=== PATIENT | female | born 1940 | race Caucasian/White ===

== ENCOUNTER → 2017-03-10 | Outpatient (CLI) | payer OTHER ==
[~2017-03-10] MED LIST: ALBUAER INH; ALL180 PO; CLTP PO; RANI150T3 PO; RMR15 PO
[2017-03-10 17:07] LABS: BASO % 0.3 %; BASO ABS # 0.02 K/uL (0-0.2); COMPLETE YES; EOS % 1.7 %; HEMATOCRIT 39.4 % (37-47); IG% 0.3 %; LYMPH % 14.2 %; LYMPH ABS # 1.09 K/uL (1.2-3.4); MEAN CELL VOLUME 85.3 fL (80-100); MEAN CORPUSCULAR HEMOGLOBIN 27.9 pg (25-34); MEAN CORPUSCULAR HGB CONC 32.7 g/dl (32-36); MEAN PLATELET VOLUME 9.7 fL (7.4-10.4); MONO % 11.2 %; NEUT % 72.3 %; PLATELET COUNT 353 K/uL (130-400); RED BLOOD COUNT 4.62 M/uL (4.2-5.4); WHITE BLOOD COUNT 7.65 K/uL (4.8-10.8)
[2017-03-10 17:23] LABS: BLOOD UREA NITROGEN 11 mg/dl (7-18); BUN/CREATININE RATIO 19.3 (10-20); CALCIUM 9.3 mg/dl (8.5-10.1); CARBON DIOXIDE 30 mmol/L (21-32); CHLORIDE 97 mmol/L (98-107); CREATININE 0.55 mg/dl (0.60-1.20); GLUCOSE 102 mg/dl (70-99); POTASSIUM 3.8 mmol/L (3.5-5.1); SODIUM 134 mmol/L (136-145)
== END | disposition home or self-care (01) ==
LOC: C.LAB 16:03
PROVIDERS: ATTEND Family Medicine
DX: J18.9 Pneumonia, unspecified organism (principal)

== ENCOUNTER 2017-03-31 19:27 | Inpatient (IN) | payer OTHER ==
[~2017-03-31] VITALS: Ht 167.6 cm; Wt 44.4 kg
[2017-03-31] MEDS ORDERED: ALBUT/IPRATROP 3MG/0.5MG NEB 3 ML VIAL INH STA (19:41)
[2017-03-31] MEDS ORDERED: CEFEPIME IV 1,000 MG in DEXTROSE 5% 100ML 100 ML IV STA (19:43)
--- NOTE | 2017-03-31 19:48 | EMERGENCY ROOM VISIT NOTE ---
History Report prepared by Scribe: Lara Frias Under the Supervision of: Dr. Chapincito Lopez D.O. First contact with patient: 19:38 Chief Complaint: RESPIRATORY PROBLEMS Stated Complaint: CHOKING, COUGH W/ PHLEGM-SCHEDULED TO SEE NUBIA History of Present Illness The patient is a 77 year old female who presents to the Emergency Room with complaints of worsening respiratory problems that started prior to arrival. Her grand daughter reports she has had a cough for "months", but choked on a piece of food at dinner this evening, and her cough worsened. Her cough is productive with greenish brown colored mucous, but the patient has difficulty clearing the sputum as her one lung is misshapen due to a history of scoliosis and CVA, per her grand daughter. The patient was recently diagnosed with pneumonia and is scheduled to see Dr. Sosa of Pulmonology later in the month. Her granddaughter states she has finished a 15 day course of antibiotics for the pneumonia. The patient admits to recent rhinorrhea and states she is a former smoker. She denies any recent chest pain or abdominal pain. Source of History: patient, family (grand daughter) Onset: FLEXIBLE NANNY Position: chest Timing: other (persistent) Associated Symptoms: + cough, No chest pain, No abdominal pain Review of Systems See HPI for pertinent positives & negatives. A total of 10 systems reviewed and were otherwise negative. Past Medical & Surgical Medical Problems: (1) Failure of outpatient treatment (2) History of Clostridium difficile infection (3) History of stroke (4) NSTEMI (non-ST elevated myocardial infarction) (5) Pneumonia (6) Scoliosis Social History Smoking Status: Never Smoker Alcohol Use: none Drug Use: none Marital Status: Housing Status: lives with family Occupation Status: retired Current/Historical Medications Scheduled Ascorbic Acid (Vitamin C), 500 MG PO DAILY Calcium/Vitamin D (Caltrate 600 Plus *), 600 MG PO BID Fexofenadine Hcl (Rosalba *), 180 MG PO DAILY PRN Allergies Coded Allergies: Penicillins (Verified Allergy, Mild, 03/31/17) Sulfa Antibiotics (Verified Allergy, Unknown, ?, 04/01/17) Quinolones (Verified Adverse Reaction, Mild, 03/31/17) Physical Exam Vital Signs Date Time Temp Pulse Resp B/P (MAP) Pulse Ox O2 Delivery O2 Flow Rate FiO2 03/31/17 21:29 106 22 121/62 98 Nasal Cannula 4.0 03/31/17 20:55 117 03/31/17 20:41 89 27 89/69 99 Ambu-Bag 4.0 03/31/17 20:13 91 Ambu-Bag 2.0 03/31/17 20:01 91 Nasal Cannula 2.0 03/31/17 19:30 37.2 129 20 100/54 83 Room Air Physical Exam GENERAL: Patient is awake, alert, somewhat anxious and appears to be in significant distress. EYES: The conjunctivae are clear. The pupils are round and reactive. EARS, NOSE, MOUTH AND THROAT: The nose is without any evidence of any deformity. Mucous membranes are moist tongue is midline NECK: The neck is nontender and supple. Significant JVD noted. RESPIRATORY: Lung sounds are diminished throughout with very poor air movement. Significant tachypnea with conversational dyspnea noted. CARDIOVASCULAR: Heart sounds are tachycardic but regular, no definite murmur noted to auscultation. GASTROINTESTINAL: The abdomen is soft. Bowel sounds are present in all quadrants. Abdomen is nontender MUSCULOSKELETAL/EXTREMITIES: There is no evidence of gross deformity full range of motion is noted in the hips and shoulders SKIN: There is no obvious evidence of any rash. There are no petechiae, pallor or cyanosis noted. NEUROLOGIC: Patient is awake alert and oriented x3 Medical Decision & Procedures ER Provider Diagnostic Interpretation: Radiology results as stated below per my review and radiologist interpretation: CHEST ONE VIEW PORTABLE CLINICAL HISTORY: Sepsis fever COMPARISON STUDY: 07/03/2011 FINDINGS: Emphysematous change. Chronic deformity of the thoracic region. Chronic increased density left lung base. Chronic left lower lobe atelectasis. No new or interval findings are present. IMPRESSION: 1. Chronic consolidative change left lung base with unchanging left lower lobe atelectatic atelectasis. 2. Emphysematous change. 3. No evidence for new or interval finding. The above report was generated using voice recognition software. It may contain grammatical, syntax or spelling errors. Electronically signed by: Brett Sorensen M.D. 03/31/2017 8:08 PM (CHEST FOR PE) ANGIO WITH CT DOSE: 288.58 mGy.cm HISTORY: Dyspnea TECHNIQUE: Multiaxial CT images of the chest were performed following the intravenous administration of contrast to evaluate the pulmonary arteries. Maximal intensity projection images were also obtained. A dose lowering technique was utilized adhering to the principles of ALARA. COMPARISON STUDY: 03/12/2017 FINDINGS: No evidence for aneurysm or dissection of the thoracic aorta. Pulmonary vasculature enhances appropriately. Progressive consolidative changes left base. Somewhat progressive patchy parenchymal infiltrates the mid to lower lung regions bilaterally. Moderate reactive mediastinal adenopathy similar to and are slightly increased in the prior exam. Pulmonary apices are clear. Moderate mucous plugging is noted bilaterally. IMPRESSION: 1. Study is negative for pulmonary embolus. 2. Progressive consolidative change left lower lobe. 3. Progressive and/or interval development of bibasilar and mid lung parenchymal infiltrative changes. 4. This raises the possibility of ongoing aspiration type change. 5. Mildly progressive mediastinal and hilar adenopathy. The above report was generated using voice recognition software. It may contain grammatical, syntax or spelling errors. Electronically signed by: Brett Sorensen M.D. 03/31/2017 10:00 PM Laboratory Results Test 03/31/17 20:15 03/31/17 20:31 03/31/17 20:47 Influenza Type A (RT-PCR) Neg for Influ A (NEG) Influenza Type A Antigen Neg for Influ A (NEG) Influenza Type B Antigen Neg for Influ B (NEG) Influenza Type B (RT-PCR) Neg for Influ B (NEG) Toxic Granulation OCCASIONAL Erythrocyte Sedimentation Rate > 90 mm/hr (0-21) Prothrombin Time 11.7 SECONDS (9.0-12.0) Prothromb Time International Ratio 1.1 (0.9-1.1) Venous Blood pH 7.44 (7.36-7.41) Venous Blood Partial Pressure CO2 46 mmHg (38.0-50.0) Venous Blood Partial Pressure O2 35 mmHg Venous Blood HCO3 30 mmol/L Venous Blood Oxygen Saturation 66.2 % Venous Blood Base Excess 5.3 mEq/L Phosphorus Level 2.6 mg/dl (2.5-4.9) Magnesium Level 1.8 mg/dl (1.8-2.4) Total Bilirubin 0.4 mg/dl (0.2-1) Aspartate Amino Transf (AST/SGOT) 23 U/L (15-37) Alanine Aminotransferase (ALT/SGPT) 16 U/L (12-78) Alkaline Phosphatase 85 U/L (45-117) Total Creatine Kinase 78 U/L (26-192) Creatine Kinase MB 14.3 ng/ml (0.5-3.6) Creatine Kinase MB Ratio 18.3 (0-3.0) C-Reactive Protein 13.70 mg/dl (0-0.29) Pro-B-Type Natriuretic Peptide 339 pg/ml (0-1800) Total Protein 8.4 gm/dl (6.4-8.2) Albumin 2.3 gm/dl (3.4-5.0) Globulin 6.1 gm/dl (2.5-4.0) Albumin/Globulin Ratio 0.4 (0.9-2) Lipase 79 U/L (73-393) Bedside Lactic Acid Venous 2.15 mmol/L (0.90-1.70) Laboratory results per my review. Medications Administered Medications (Trade) Dose Ordered Sig/Irene Route Start Time Stop Time Status Last Admin Dose Admin Albuterol/ Ipratropium (Duoneb) 3 ml NOW STAT INH 03/31/17 19:41 03/31/17 19:43 DC 03/31/17 21:11 3 ML Cefepime HCl 1000 mg/Syringe 11 ml @ 5.5 mls/min NOW STAT IV 03/31/17 19:52 03/31/17 19:53 DC 03/31/17 20:38 5.5 MLS/MIN Sodium Chloride 1,000 ml @ 999 mls/hr Q1H1M STAT IV 03/31/17 20:12 03/31/17 21:12 DC 03/31/17 20:39 999 MLS/HR ECG Indication: SOB/dyspnea Rate (beats per minute): 122 Rhythm: sinus tachycardia Findings: no ectopy, other (Elevation in low lateral leads consistent with ischemia) Comparison ECG Date: Changes are new when compared to EKG from 12/30/13 ED Course 1938: The patient was evaluated in room B6. A complete history and physical examination were performed. 1940: DuoNeb 3 ml INH. 1951: Cefepime HCl/1000 mg/Syringe 11 ml @ 5.5 mls/min IV. 2011: NSS 1000 ml @ 999 mls/hr IV. 2027: I reevaluated the patient. She is resting comfortably. 2150: I discussed the patients case with Dr. Andrew, [facility] Cardiology. He recommends following the patient clinically as well as serial EKGs and Troponin' s. No heart alert at this time. 2157: I discussed the patients case with Dr. [place], [facility] Hospitalist. The patient will be further evaluated. 2200: Heparin Sodium/Dextrose 1 ea IV. 2202: I reevaluated the patient. She is feeling well and resting. I discussed my recommendation she remain in the hospital for further evaluation and management and she and her granddaughter verbalized complete understanding and agreement. Medical Decision Prior records/ancillary studies reviewed. Triage Nursing notes reviewed. Additional history obtained from the family. The patient's history was concerning for respiratory difficulties. Differential diagnosis: Etiologies such as infections, reactive airway disease, pneumonia, pneumothorax , COPD, CHF, cardiac ischemia, pulmonary embolism, musculoskeletal, gastrointestinal, as well as others were entertained. The patient is a 77-year-old female who presented to the emergency department for an evaluation of difficulty breathing. The patient had ongoing difficulty breathing since beginning of the month although her granddaughter states that she's had worsening pulmonary status for quite some time. The patient had a CAT scan of the chest which showed some abnormality in the left lingular lobe. The patient was eating tonight when she started choking on some food. Afterward she had significant worsening of her respiratory status. Initially when she presented she was hypoxic as well as tachycardic. Her initial EKG showed ST segment elevation which could be consistent with an acute [place] but the patient denied having any chest pain. Given her overall condition I feel this is likely related to ischemia from her elevated heart rate as well as her hypoxia. She was treated with IV fluids IV antibiotics bronchodilator therapy and supplemental oxygen. Her symptoms significantly improved. She was found have an elevation in troponin. I discussed this with the on-call [facility] wicker worker. Given her age and comorbidities I do not feel that she would be a good candidate for cardiac catheterization at this point especially because her symptoms continued to improve. She was started on IV heparin. I discussed her case with the on-call [facility] hospitalist group. I discussed patient's laboratory radiographic studies with her. She is aware of her condition as well as the findings with her heart. Medication Reconcilliation Current Medication List: was personally reviewed by me Blood Pressure Screening Patient's blood pressure: Low blood pressure Consults Time Called: 2149 Consulting Physician: Dr. CLARA [facility] Returned Call: 2150 I discussed the [facility] He recommends following the patient clinically as well as serial EKGs and Troponin's. No heart alert at this time. Additional Consults: Time Called: 2155 Consulted Physician: Dr. Colorado [facility] Hospitalist Returned Call: 2157 Additional Comments: I discussed the patients case with Dr. Colorado [facility] Hospitalist. The patient will be further evaluated. Impression Primary Impression: Pneumonia Additional Impressions: Hypoxia NSTEMI (non-ST elevated myocardial infarction) Critical Care I have personally spent greater than 45 minutes of critical care time in the direct management of this patient. This includes bedside care, interpretation of diagnostic studies, and testing, discussion with consultants, patient, and family members, and other required patient management activities. This 45 minutes is in excess of all separately billable procedures. Scribe Attestation The scribe's documentation has been prepared under my direction and personally reviewed by me in its entirety. I confirm that the note above accurately reflects all work, treatment, procedures, and medical decision making performed by me. Departure Information Dispostion Being Evaluated By Hospitalist Referrals Carlos Corbett M.D. (PCP) Patient Instructions My [facility] Problem Qualifiers Primary Impression: Pneumonia Pneumonia type: aspiration pneumonia Aspiration pneumonia type: unspecified Laterality: left Lung location: lower lobe of lung Qualified Codes: J69.0 - Pneumonitis due to inhalation of food and vomit
[2017-03-31] MEDS ORDERED: CEFEPIME IV 1,000 MG in SYRINGE 0 ML IV STA (19:52)
--- NOTE | 2017-03-31 20:09 | DIAGNOSTIC IMAGING REPORT ---
CHEST ONE VIEW PORTABLE CLINICAL HISTORY: Sepsis fever COMPARISON STUDY: 07/03/2011 FINDINGS: Emphysematous change. Chronic deformity of the thoracic region. Chronic increased density left lung base. Chronic left lower lobe atelectasis. No new or interval findings are present. IMPRESSION: 1. Chronic consolidative change left lung base with unchanging left lower lobe atelectatic atelectasis. 2. Emphysematous change. 3. No evidence for new or interval finding. The above report was generated using voice recognition software. It may contain grammatical, syntax or spelling errors. Electronically signed by: Brett oSrensen M.D. 03/31/2017 8:08 PM Dictated Date/Time: 03/31/2017 8:06 PM
[2017-03-31] MEDS ORDERED: SODIUM CHLORIDE 0.9% 1000ML 1,000 ML IV STA (20:12)
[2017-03-31 20:54] LABS: MEAN CELL VOLUME 82.2 fL (80-100); MEAN CORPUSCULAR HEMOGLOBIN 26.1 pg (25-34); MEAN CORPUSCULAR HGB CONC 31.7 g/dl (32-36); MEAN PLATELET VOLUME 9.6 fL (7.4-10.4); PLATELET COUNT 358 K/uL (130-400); RED BLOOD COUNT 4.26 M/uL (4.2-5.4); WHITE BLOOD COUNT 15.55 K/uL (4.8-10.8)
[2017-03-31 21:01] LABS: VEN BLD GAS O2 SATURATION 66.2 %; VEN BLOOD GAS BASE EXCESS 5.3 mEq/L
[2017-03-31 21:05] LABS: INR 1.1 (0.9-1.1); PARTIAL THROMBOPLASTIN RATIO 1.1; PROTHROMBIN TIME (PATIENT) 11.7 SECONDS (9.0-12.0)
[2017-03-31 21:15] LABS: BUN/CREATININE RATIO 23.7 (10-20); CALCIUM 8.8 mg/dl (8.5-10.1); CREATININE 0.63 mg/dl (0.60-1.20); MAGNESIUM 1.8 mg/dl (1.8-2.4); POTASSIUM 4.1 mmol/L (3.5-5.1)
[2017-03-31 21:19] LABS: BASO % 0.1 %; BASO ABS # 0.02 K/uL (0-0.2); COMPLETE YES; EOS % 0.1 %; IG% 0.4 %; LYMPH % 4.8 %; LYMPH ABS # 0.74 K/uL (1.2-3.4); MONO % 15.9 %; NEUT % 78.7 %; TOXIC GRANULATION OCCASIONAL
[2017-03-31] MEDS ORDERED: ASCA500 PO (21:24)
[2017-03-31] MEDS ORDERED: OPTIRAY 320 IV PRN (21:30)
[2017-03-31 21:45] LABS: ALB/GLOB RATIO 0.4 (0.9-2); C-REACTIVE PROTEIN 13.7 mg/dl (0-0.29); CKMB/CK RATIO 18.3 (0-3.0); PHOSPHORUS 2.6 mg/dl (2.5-4.9)
--- NOTE | 2017-03-31 22:01 | DIAGNOSTIC IMAGING REPORT ---
(CHEST FOR PE) ANGIO WITH CT DOSE: 288.58 mGy.cm HISTORY: Dyspnea TECHNIQUE: Multiaxial CT images of the chest were performed following the intravenous administration of contrast to evaluate the pulmonary arteries. Maximal intensity projection images were also obtained. A dose lowering technique was utilized adhering to the principles of ALARA. COMPARISON STUDY: 03/12/2017 FINDINGS: No evidence for aneurysm or dissection of the thoracic aorta. Pulmonary vasculature enhances appropriately. Progressive consolidative changes left base. Somewhat progressive patchy parenchymal infiltrates the mid to lower lung regions bilaterally. Moderate reactive mediastinal adenopathy similar to and are slightly increased in the prior exam. Pulmonary apices are clear. Moderate mucous plugging is noted bilaterally. IMPRESSION: 1. Study is negative for pulmonary embolus. 2. Progressive consolidative change left lower lobe. 3. Progressive and/or interval development of bibasilar and mid lung parenchymal infiltrative changes. 4. This raises the possibility of ongoing aspiration type change. 5. Mildly progressive mediastinal and hilar adenopathy. The above report was generated using voice recognition software. It may contain grammatical, syntax or spelling errors. Electronically signed by: Brett Sorensen M.D. 03/31/2017 10:00 PM Dictated Date/Time: 03/31/2017 9:56 PM
[2017-03-31 22:27] LABS: INFLUENZA A PCR Neg for Influ A (NEG); INFLUENZA B PCR Neg for Influ B (NEG)
--- NOTE | 2017-03-31 22:28 | History and Physical ---
History & Physical Date & Time of Service: Mar 31, 2017 at 22:27 Chief Complaint: Choking, Cough W/ Phlegm-Scheduled To See Sheila Primary Care Physician: Carlos Corbett M.D. History of Present Illness Source: patient Alla is a 77 yo F with a recent LLL pneumonia, hx of COPD, stroke causing L hemiparesis who presents with persistent shortness of breath. She was recently placed on a course of antibiotics as an outpatient. Earlier today she choked on a piece of food while eating and became very short of breath. Granddaughter reports she frequently gets left sided pneumonias because of scoliosis and a stroke causing L sided hemiparesis, so she cannot clear secretions well. She is booked for a bronchoscopy with Dr. Sosa within the month as well. Upon arrival in the ED, she was given a nebulizer and started on Cefepime. Her troponin was elevated and there was some mild EKG changes with ST elevation in V4-V6. Dr Curry was called and it was thought this was likely demand ischemia as she did not have any chest pain. She was started on a heparin drip. She currently feels better. She is able to speak in full sentences but gets tired easily. Past Medical/Surgical History Medical Problems: (1) Failure of outpatient treatment (2) History of Clostridium difficile infection (3) History of stroke (4) NSTEMI (non-ST elevated myocardial infarction) (5) Pneumonia (6) Scoliosis Family History No pertinent FHx Social History Smoking Status: Never Smoker Drug Use: none Marital Status: Occupational Status: retired Immunizations History of Influenza Vaccine: No History of Tetanus Vaccine?: Yes History of Pneumococcal: Yes Pneumococcal Date: Feb 20, 2006 History of Hepatitis B Vaccine: No Multi-Drug Resistant Organisms History of MDRO: No Allergies Coded Allergies: Penicillins (Verified Allergy, Mild, 03/31/17) Sulfa Drugs (Verified Allergy, Mild, 03/31/17) Quinolones (Verified Adverse Reaction, Mild, 03/31/17) Home Medications Scheduled Ascorbic Acid (Vitamin C), 500 MG PO DAILY Calcium/Vitamin D (Caltrate 600 Plus *), 600 MG PO BID Fexofenadine Hcl (Rosalba *), 180 MG PO DAILY PRN Review of Systems See HPI for pertinent positives & negatives. A total of 10 systems reviewed and were otherwise negative. Physical Exam Vital Signs Date Time Temp Pulse Resp B/P (MAP) Pulse Ox O2 Delivery O2 Flow Rate FiO2 03/31/17 21:29 106 22 121/62 98 Nasal Cannula 4.0 03/31/17 20:55 117 03/31/17 20:41 89 27 89/69 99 Ambu-Bag 4.0 03/31/17 20:13 91 Ambu-Bag 2.0 03/31/17 20:01 91 Nasal Cannula 2.0 03/31/17 19:30 37.2 129 20 100/54 83 Room Air General Appearance: WD/WN, no apparent distress, + cachetic, + thin Head: normocephalic, atraumatic Eyes: normal inspection, PERRL ENT: hearing grossly normal Neck: supple, no JVD Respiratory/Chest: + pertinent finding (unable to take deep breaths, crackles L side of chest) Cardiovascular: regular rate, rhythm, no murmur, normal peripheral pulses Abdomen/GI: non tender, soft Back: no CVA tenderness, no muscle spasm Extremities/Musculoskelatal: no calf tenderness, no pedal edema Neurologic/Psych: alert, normal mood/affect, normal reflexes, oriented x 3 Skin: no rash Diagnostics Laboratory Results Results Past 24 Hours Test 03/31/17 20:15 03/31/17 20:31 Range/Units Influenza Type A (RT-PCR) Neg for Influ A NEG Influenza Type A Antigen Neg for Influ A NEG Influenza Type B Antigen Neg for Influ B NEG Influenza Type B (RT-PCR) Neg for Influ B NEG White Blood Count 15.55 4.8-10.8 K/uL Red Blood Count 4.26 4.2-5.4 M/uL Hemoglobin 11.1 12.0-16.0 g/dL Hematocrit 35.0 37-47 % Mean Corpuscular Volume 82.2 80-100 fL Mean Corpuscular Hemoglobin 26.1 25-34 pg Mean Corpuscular Hemoglobin Concent 31.7 32-36 g/dl Platelet Count 358 130-400 K/uL Mean Platelet Volume 9.6 7.4-10.4 fL Neutrophils (%) (Auto) 78.7 % Lymphocytes (%) (Auto) 4.8 % Monocytes (%) (Auto) 15.9 % Eosinophils (%) (Auto) 0.1 % Basophils (%) (Auto) 0.1 % Neutrophils # (Auto) 12.23 1.4-6.5 K/uL Lymphocytes # (Auto) 0.74 1.2-3.4 K/uL Monocytes # (Auto) 2.48 0.11-0.59 K/uL Eosinophils # (Auto) 0.02 0-0.5 K/uL Basophils # (Auto) 0.02 0-0.2 K/uL RDW Standard Deviation 41.8 36.4-46.3 fL RDW Coefficient of Variation 13.9 11.5-14.5 % Immature Granulocyte % (Auto) 0.4 % Immature Granulocyte # (Auto) 0.06 0.00-0.02 K/uL Toxic Granulation OCCASIONAL Erythrocyte Sedimentation Rate > 90 0-21 mm/hr Prothrombin Time 11.7 9.0-12.0 SECONDS Prothromb Time International Ratio 1.1 0.9-1.1 Activated Partial Thromboplast Time 28.0 21.0-31.0 SECONDS Partial Thromboplastin Ratio 1.1 Venous Blood pH 7.44 7.36-7.41 Venous Blood Partial Pressure CO2 46 38.0-50.0 mmHg Venous Blood Partial Pressure O2 35 mmHg Venous Blood HCO3 30 mmol/L Venous Blood Oxygen Saturation 66.2 % Venous Blood Base Excess 5.3 mEq/L Sodium Level 132 136-145 mmol/L Potassium Level 4.1 3.5-5.1 mmol/L Chloride Level 95 98-107 mmol/L Carbon Dioxide Level 28 21-32 mmol/L Anion Gap 9.0 3-11 mmol/L Blood Urea Nitrogen 15 7-18 mg/dl Creatinine 0.63 0.60-1.20 mg/dl Est Creatinine Clear Calc Drug Dose 51.4 ml/min Estimated GFR () 100.3 Estimated GFR (Non- 86.5 BUN/Creatinine Ratio 23.7 10-20 Random Glucose 167 70-99 mg/dl Calcium Level 8.8 8.5-10.1 mg/dl Phosphorus Level 2.6 2.5-4.9 mg/dl Magnesium Level 1.8 1.8-2.4 mg/dl Total Bilirubin 0.4 0.2-1 mg/dl Aspartate Amino Transf (AST/SGOT) 23 15-37 U/L Alanine Aminotransferase (ALT/SGPT) 16 12-78 U/L Alkaline Phosphatase 85 45-117 U/L Total Creatine Kinase 78 26-192 U/L Creatine Kinase MB 14.3 0.5-3.6 ng/ml Creatine Kinase MB Ratio 18.3 0-3.0 Troponin I 4.560 0-0.045 ng/ml C-Reactive Protein 13.70 0-0.29 mg/dl Pro-B-Type Natriuretic Peptide 339 0-1800 pg/ml Total Protein 8.4 6.4-8.2 gm/dl Albumin 2.3 3.4-5.0 gm/dl Globulin 6.1 2.5-4.0 gm/dl Albumin/Globulin Ratio 0.4 0.9-2 Lipase 79 73-393 U/L Microbiology Results 03/31/17 Blood Culture, Received Pending 03/31/17 Blood Culture, Received Pending 03/31/17 Gram Stain - Final, Resulted 03/31/17 Sputum Culture, Resulted Pending Diagnostic Radiology CTA IMPRESSION: 1. Study is negative for pulmonary embolus. 2. Progressive consolidative change left lower lobe. 3. Progressive and/or interval development of bibasilar and mid lung parenchymal infiltrative changes. 4. This raises the possibility of ongoing aspiration type change. 5. Mildly progressive mediastinal and hilar adenopathy. CXR IMPRESSION: 1. Chronic consolidative change left lung base with unchanging left lower lobe atelectatic atelectasis. 2. Emphysematous change. 3. No evidence for new or interval finding. Impression Assessment and Plan 77 yo F with likely chronic aspiration, likely from previous stroke and scoliosis, with persistent LLL consolidation, which is pneumonia vs neoplasm ( as noted on CT 2 weeks ago). Aspiration pneumonia - Continue cefepime - Speech eval - NPO except ice chips meds - Pulm consult for potential bronchoscopy NSTEMI - Heparin drip - Cards consult - Trend troponin - Please call if pt develops any symptoms - Echo in AM Code status: Pt confirms she is a full code. If incapacitated, her POA is her son Pravin who is a bankruptcy judge in [place]. Dispo: Admit to tele VTE: Heparin drip Resident Physician Supervision Note: Pt seen/examined independently. I discussed the case with the resident and agree with the findings and plan as documented in the note. Any exceptions or clarifications are listed here: 77 y/o F Hx of R CVA and L hemiparesis leading to aspiration susceptibility - recently treated for PNM in outpt setting - presenting after probable aspiration - initial labs revealed marked troponin elevation. There are some associated EKG chnages although she has not had related cardiac symptoms. OE AAO x 3 S1,2 R Poor effort - reduced air at L base - no clear wheezing/crackles NT, NDChronic L weakness No CCE P: Cardiology was contacted - pt placed on a Heparin drip and will be evaluated AM - echo requested to assess for WMA We will treat with Cefepime for presumed aspiration PO - multiple abx allergies present - consider add of Vanc/Zithro if additional clinical deterioration occurs - pulm is consulted as she was scheduled for elective bronch Documented By: Peter [place] VTE Prophylaxis VTE Risk Assessment Done? Y/N: Yes Risk Level: Moderate Resident Tracking Resident Involvement: Resident Care Provided Care Provided: Adult Hospital Medicine
[2017-03-31] MEDS ORDERED: MAGNESIUM HYDROXIDE SUSP 30 ML UDC PO PRN (22:30)
[2017-03-31] MEDS ORDERED: ONDANSETRON INJ 2 MG/ML 2 ML VIAL IV PRN (22:30)
[2017-03-31] MEDS ORDERED: ALUMINUM/MAGNESIUM/SIMETH (MAALOX MAX) 30 ML UDC PO PRN (22:30)
[2017-03-31] MEDS ORDERED: ACETAMINOPHEN 325 MG TAB PO PRN (22:30)
[2017-03-31] MEDS ORDERED: HEPARIN 25000 UNIT/500 ML D5W ONE (23:03)
[2017-03-31 23:48] VITALS: BP 107/69; PULSE 101; TEMP 37.4; O2SAT 99; Ht 167.6 cm; Wt 44.4 kg
[2017-04-01] VITALS (11 sets, daily range): BP systolic 89–104; BP diastolic 54–68; PULSE 74–99; TEMP 36.5–37.5; O2SAT 95–99
[2017-04-01] MEDS ORDERED: INFLUENZA VACCINE HIGH DOSE 65+ 0.5 ML SYR IM. ONE (01:00)
[2017-04-01] MEDS ORDERED: PNEUMOCOCCAL POLYSACCHARIDES 25 MCG/0.5 ML VIAL/SYR IM. ONE (01:00)
[2017-04-01] MEDS ORDERED: INFLUENZA ADMINISTRATION CHARGE ONE (01:00)
[2017-04-01] MEDS ORDERED: PNEUMOCOCCAL ADMINISTRATION CHARGE ONE (01:00)
[2017-04-01] MEDS: CEFEPIME IV 1,000 MG in SYRINGE 0 ML IV SCH ×3 (04:57→19:58)
[2017-04-01 06:18] LABS: PARTIAL THROMBOPLASTIN RATIO 1.4
[2017-04-01] MEDS ORDERED: HEPARIN IV BOLUS 3,000 UNIT in SYRINGE 0 ML IV ONE (06:45)
[2017-04-01] MEDS ORDERED: PERFLUTREN LIPID MICROSPHERE (DEFINITY) IV ONE (06:57)
[2017-04-01] MEDS: HEPARIN 25,000 UNIT/500ML D5W 500 ML IV PRN (07:06)
--- NOTE | 2017-04-01 07:45 | Family Medicine Progress Note ---
Progress Note Date of Service Apr 01, 2017. Subjective Pt evaluation today including: conversation w/ patient, conversation w/ family , physical exam, chart review, lab review, review of inpatient medication list Pain: No pain reported PO Intake: Tolerating PO intake Voiding: no voiding problems Ms. Lui states she feels her breathing has improved since yesterday. She denies chest pain, fever, chills, abdominal pain, n/v and states her bowel movements have been normal. She states she has a cough which she feels is productive but she has difficulty expectorating the sputum. With regards to the history of her pneumonia - she was diagnosed by her PCP a month ago and was treated with 15 days of antibiotics, however she does not remember the name of this antibiotic. She states her breathing never fully returned to baseline even after abx treatment and worsened yesterday after she was eating and aspirated some of her food. Constitutional: + weakness, No fever, No chills, No sweats Respiratory: + cough, + sputum, + shortness of breath, No wheezing Cardiovascular: No chest pain, No edema Abdomen: No pain, No nausea, No vomiting, No diarrhea All Other Systems: Reviewed and Negative Medications Current Inpatient Medications Medications (Trade) Dose Ordered Sig/Irene Route Start Time Stop Time Status Last Admin Dose Admin Ioversol (Optiray 320) 100 ml UD PRN IV 03/31/17 21:30 04/04/17 21:29 Acetaminophen (Tylenol Tab) 650 mg Q4H PRN PO 03/31/17 22:30 04/30/17 22:29 Al Hydrox/Mg Hydrox/Simethicone (Maalox Max Susp) 15 ml Q4H PRN PO 03/31/17 22:30 04/30/17 22:29 Magnesium Hydroxide (Milk Of Magnesia Susp) 30 ml Q12H PRN PO 03/31/17 22:30 04/30/17 22:29 Ondansetron HCl (Zofran Inj) 4 mg Q6H PRN IV 03/31/17 22:30 04/30/17 22:29 Ascorbic Acid (Vitamin C Tab) 500 mg DAILY PO 04/01/17 09:00 05/01/17 08:59 04/01/17 08:48 500 MG Calcium/Vitamin D (Caltrate Plus Tab) 1 tab BID PO 04/01/17 09:00 05/01/17 08:59 04/01/17 08:48 1 TAB Fexofenadine HCl (Rosalba Tab) 180 mg DAILY PRN PO 03/31/17 22:30 04/30/17 22:29 Cefepime HCl 1000 mg/Syringe 11 ml @ 5.5 mls/min Q8H IV 04/01/17 04:00 04/08/17 03:59 04/01/17 04:57 5.5 MLS/MIN Heparin Sodium/ Dextrose 500 ml @ 19 mls/hr Q24H PRN IV 04/01/17 00:30 05/01/17 00:29 04/01/17 07:06 19 MLS/HR Clindamycin Phosphate 600 mg/ Dextrose 54 ml @ 100 mls/hr Q8H IV 04/01/17 10:00 04/08/17 09:59 04/01/17 10:25 100 MLS/HR Atorvastatin Calcium (Lipitor Tab) 40 mg HS PO 04/01/17 21:00 05/01/17 20:59 Ipratropium [place] (Atrovent 0.02% 0.5MG/2.5ML Neb) 0.5 mg Q6R PRN INH 04/01/17 10:30 05/01/17 10:29 Levalbuterol (Xopenex 1.25MG/ 0.5ML Neb) 1.25 mg Q6R PRN INH 04/01/17 10:30 05/01/17 10:29 Objective Vital Signs Date Time Temp Pulse Resp B/P (MAP) Pulse Ox O2 Delivery O2 Flow Rate FiO2 04/01/17 11:28 36.5 78 18 97/60 (72) 97 3.0 04/01/17 08:00 98 Nasal Cannula 3.0 04/01/17 07:43 37.0 74 20 95/61 (72) 98 3.0 04/01/17 04:00 Nasal Cannula 3.0 04/01/17 03:02 37.3 96 17 104/68 (80) 95 Nasal Cannula 3.0 03/31/17 23:59 Nasal Cannula 3.0 03/31/17 23:48 37.4 101 22 107/69 99 Nasal Cannula 3.0 03/31/17 23:18 102 26 115/65 98 03/31/17 23:00 102 26 115/65 98 Nasal Cannula 3.0 03/31/17 21:29 106 22 121/62 98 Nasal Cannula 4.0 03/31/17 20:55 117 03/31/17 20:41 89 27 89/69 99 Ambu-Bag 4.0 03/31/17 20:13 91 Ambu-Bag 2.0 03/31/17 20:01 91 Nasal Cannula 2.0 03/31/17 19:30 37.2 129 20 100/54 83 Room Air Physical Exam General Appearance: WD/WN, no apparent distress, + pertinent finding (scoliosis ) Respiratory/Chest: chest non-tender, normal breath sounds, no respiratory distress, no accessory muscle use, + crackles (left base) Cardiovascular: regular rate, rhythm, no edema, no gallop, no JVD, no murmur Abdomen: normal bowel sounds, non tender, soft, no organomegaly, no pulsatile mass Laboratory Results Last 24 Hours Test 03/31/17 20:15 03/31/17 20:31 03/31/17 20:47 04/01/17 02:13 Influenza Type A (RT-PCR) Neg for Influ A Influenza Type A Antigen Neg for Influ A Influenza Type B Antigen Neg for Influ B Influenza Type B (RT-PCR) Neg for Influ B White Blood Count 15.55 K/uL Red Blood Count 4.26 M/uL Hemoglobin 11.1 g/dL Hematocrit 35.0 % Mean Corpuscular Volume 82.2 fL Mean Corpuscular Hemoglobin 26.1 pg Mean Corpuscular Hemoglobin Concent 31.7 g/dl Platelet Count 358 K/uL Mean Platelet Volume 9.6 fL Neutrophils (%) (Auto) 78.7 % Lymphocytes (%) (Auto) 4.8 % Monocytes (%) (Auto) 15.9 % Eosinophils (%) (Auto) 0.1 % Basophils (%) (Auto) 0.1 % Neutrophils # (Auto) 12.23 K/uL Lymphocytes # (Auto) 0.74 K/uL Monocytes # (Auto) 2.48 K/uL Eosinophils # (Auto) 0.02 K/uL Basophils # (Auto) 0.02 K/uL RDW Standard Deviation 41.8 fL RDW Coefficient of Variation 13.9 % Immature Granulocyte % (Auto) 0.4 % Immature Granulocyte # (Auto) 0.06 K/uL Toxic Granulation OCCASIONAL Erythrocyte Sedimentation Rate > 90 mm/hr Prothrombin Time 11.7 SECONDS Prothromb Time International Ratio 1.1 Activated Partial Thromboplast Time 28.0 SECONDS Partial Thromboplastin Ratio 1.1 Venous Blood pH 7.44 Venous Blood Partial Pressure CO2 46 mmHg Venous Blood Partial Pressure O2 35 mmHg Venous Blood HCO3 30 mmol/L Venous Blood Oxygen Saturation 66.2 % Venous Blood Base Excess 5.3 mEq/L Sodium Level 132 mmol/L Potassium Level 4.1 mmol/L Chloride Level 95 mmol/L Carbon Dioxide Level 28 mmol/L Anion Gap 9.0 mmol/L Blood Urea Nitrogen 15 mg/dl Creatinine 0.63 mg/dl Est Creatinine Clear Calc Drug Dose 51.4 ml/min Estimated GFR () 100.3 Estimated GFR (Non- 86.5 BUN/Creatinine Ratio 23.7 Random Glucose 167 mg/dl Calcium Level 8.8 mg/dl Phosphorus Level 2.6 mg/dl Magnesium Level 1.8 mg/dl Total Bilirubin 0.4 mg/dl Aspartate Amino Transf (AST/SGOT) 23 U/L Alanine Aminotransferase (ALT/SGPT) 16 U/L Alkaline Phosphatase 85 U/L Total Creatine Kinase 78 U/L Creatine Kinase MB 14.3 ng/ml Creatine Kinase MB Ratio 18.3 Troponin I 4.560 ng/ml 4.740 ng/ml C-Reactive Protein 13.70 mg/dl Pro-B-Type Natriuretic Peptide 339 pg/ml Total Protein 8.4 gm/dl Albumin 2.3 gm/dl Globulin 6.1 gm/dl Albumin/Globulin Ratio 0.4 Lipase 79 U/L Bedside Lactic Acid Venous 2.15 mmol/L Test 04/01/17 05:10 04/01/17 08:29 White Blood Count 8.16 K/uL Red Blood Count 3.85 M/uL Hemoglobin 10.0 g/dL Hematocrit 31.4 % Mean Corpuscular Volume 81.6 fL Mean Corpuscular Hemoglobin 26.0 pg Mean Corpuscular Hemoglobin Concent 31.8 g/dl Platelet Count 323 K/uL Mean Platelet Volume 10.1 fL Neutrophils (%) (Auto) 62.9 % Lymphocytes (%) (Auto) 17.5 % Monocytes (%) (Auto) 18.8 % Eosinophils (%) (Auto) 0.2 % Basophils (%) (Auto) 0.2 % Neutrophils # (Auto) 5.13 K/uL Lymphocytes # (Auto) 1.43 K/uL Monocytes # (Auto) 1.53 K/uL Eosinophils # (Auto) 0.02 K/uL Basophils # (Auto) 0.02 K/uL RDW Standard Deviation 41.7 fL RDW Coefficient of Variation 13.9 % Immature Granulocyte % (Auto) 0.4 % Immature Granulocyte # (Auto) 0.03 K/uL Activated Partial Thromboplast Time 35.2 SECONDS Partial Thromboplastin Ratio 1.4 Sodium Level 137 mmol/L Potassium Level 3.8 mmol/L Chloride Level 101 mmol/L Carbon Dioxide Level 29 mmol/L Anion Gap 7.0 mmol/L Blood Urea Nitrogen 11 mg/dl Creatinine 0.42 mg/dl Est Creatinine Clear Calc Drug Dose 74.7 ml/min Estimated GFR () 114.6 Estimated GFR (Non- 98.9 BUN/Creatinine Ratio 25.7 Random Glucose 115 mg/dl Lactic Acid Level 1.1 mmol/L Calcium Level 8.5 mg/dl Troponin I 3.610 ng/ml Assessment and Plan Ms. Lui is a 77 year old female with possible chronic aspiration, likely from previous stroke and scoliosis, with persistent LLL consolidation Septic on arrival secondary to aspiration pneumonia - hypoxemic on arrival - Continue cefepime - added in clindamycin for anaerobe coverage - thank you to pulmonary for consult: - added azithromycin for atypical coverage - ordered pro-calcitonin - bronch not warranted at this time given cardiac hx - chest PT vibration vest and mucomyst to help with expectoration - Xopenex q6hr prn for shortness of breath - continue oxygen via nasal cannula - currently on 3L - sputum gram stain revealed moderate amounts of gram positive cocci and few gram negative bacilli - awaiting culture results - awaiting blood culture results - Speech eval & video swallow test showed silent aspiration of thin and nectar thick liquids - discussed home management with granddaughter and will provide a list of recommended foods/consistencies - Tylenol prn for fever - 75mls/hr of NS as she looks dry & was tachy at ~100bpm - will monitor Prior NSTEMI, worsened by hypoxemia - thank you to Dr. Curry for input - EKG - ST elevation in leads V3-V6 - ECHO - "extensive prior LAD infarct with an ejection fraction in the range of 35%-40% with hypokinesis of the mid to distal anterior septum, mid to distal septum, mid to distal anterior wall apex and inferior apex. They appear thin and akinetic, suggesting a prior heart attack." - recommended medical therapy for secondary prevention - heparin drip for 48 hours, 81mg of aspirin daily, beta yosi if BP allows (currently running low so will hold off for now) - also added 40mg of atorvastatin - troponin trending downwards now - down to 3.6 from 4.7 Allergies - continue fexofenadine Anemia - hemoglobin 10 - seems to be around her baseline - MCV wnl, likely anemia of chronic disease Code status: Full. If incapacitated, her POA is her son Parvin who is a business management specialist in [place]. Dispo: Remains on telemetry, PT/OT evals in place VTE: Heparin drip Resident Tracking Resident Involvement: Resident Care Provided Care Provided: Adult Hospital Medicine
--- NOTE | 2017-04-01 08:32 | ECHOCARDIOGRAM REPORT ---
*NOTICE TO RECEIVING LIBERTARIAN AGENCY This information is strictly Confidential and protected under [place] law. [place] law prohibits you from making any further disclosure of this information unless further disclosure is expressly permitted by the written consent of the person to whom it pertains or is authorized by law. A general authorization for the release of medical or other information is not sufficient for this purpose. Hospital accepts no responsibility if the information is made available to any other person, INCLUDING THE PATIENT. Interpretation Summary * Name: ERICH HSU Study Date: 04/01/2017 06:26 AM BP: 95/61 mmHg * Patient Location: C.2T\S\S240\S\2 HR: 74 * : 1940 (M/d/yyyy) Gender: Female Height: 66 in * Age: 77 yrs Ethnicity: CA Weight: 93 lb * Ordering Physician: Peter [place] * Referring Physician: Self, Referred * Performed By: Sangita Akbar RDCS * * Reason For Study: MO * BSA: 1.4 m2 * -- Conclusions -- * The left ventricle is grossly normal size. * There is normal left ventricular wall thickness. * Left ventricular systolic function is moderately reduced. * Ejection Fraction = 35-40%. * There is an extensive LAD wall motion abnormality. * The mid to distal anteroseptum, mid to distal septum, mid to distal anterior wall, apex and inferoapex are thin and akinetic. * There is no thrombus. * The right ventricle is normal in size and function. * Grade I diastolic dysfunction, (abnormal relaxation pattern). Procedure Details * A contrast injection of Definity was performed to improve assessment of LV function. * Contrast was injected into an intravenous site in the right arm. * One vial of Definity ultrasound contrast was diluted in normal saline to a total volume of 10 ml. A total of '2' ml of solution was administered during imaging. * Lot # [id number] of Definity utilized for procedure. * Expiration date APR 28. * The attending nurse who injected the contrast agent was EILEEN LAYNE. Left Ventricle * The left ventricle is grossly normal size. * There is no thrombus. * There is normal left ventricular wall thickness. * Ejection Fraction = 35-40%. * Left ventricular systolic function is moderately reduced. * There is an extensive LAD wall motion abnormality. The mid to distal anteroseptum, mid to distal septum, mid to distal anterior wall, apex and inferoapex are thin and akinetic. Right Ventricle * The right ventricle is normal in size and function. Atria * The left atrial size is normal. * Right atrial size is normal. Mitral Valve * The mitral valve is grossly normal. * There is mild mitral regurgitation. Tricuspid Valve * The tricuspid valve is not well visualized, but is grossly normal. * There is mild tricuspid regurgitation. Aortic Valve * The aortic valve is trileaflet. * No aortic regurgitation is present. Pulmonic Valve * The pulmonic valve is not well seen, but is grossly normal. Great Vessels * The aortic root is normal size. Pericardium/Pleural * Small pericardial effusion. Left Ventricular Diastolic Function * Grade I diastolic dysfunction, (abnormal relaxation pattern). MMode 2D Measurements and Calculations IVSd 0.88 cm IVSs 1.2 cm LVIDd 3.9 cm LVIDs 2.4 cm LVPWd 0.75 cm LVPWs 1.1 cm IVS/LVPW 1.2 FS 38.4 % EDV(Teich) 67.9 ml ESV(Teich) 20.8 ml EF(Teich) 69.3 % EDV(cubed) 61.6 ml ESV(cubed) 14.4 ml EF(cubed) 76.7 % % IVS thick 39.7 % % LVPW thick 46.7 % LV mass(C)d 93.9 grams LV mass(C)dI 65.0 grams/m\S\2 LV mass(C)s 78.4 grams LV mass(C)sI 54.3 grams/m\S\2 SV(Teich) 47.1 ml SI(Teich) 32.6 ml/m\S\2 SV(cubed) 47.2 ml SI(cubed) 32.7 ml/m\S\2 Ao root diam 2.6 cm Ao root area 5.1 cm\S\2 LA dimension 2.4 cm LA/Ao 0.95 LVAd ap4 27.5 cm\S\2 LVLd ap4 7.0 cm EDV(MOD-sp4) 87.5 ml EDV(sp4-el) 91.4 ml LVAs ap4 20.2 cm\S\2 LVLs ap4 6.5 cm ESV(MOD-sp4) 51.2 ml ESV(sp4-el) 53.3 ml EF(MOD-sp4) 41.5 % EF(sp4-el) 41.6 % LVAd ap2 28.7 cm\S\2 LVLd ap2 7.3 cm EDV(MOD-sp2) 93.7 ml EDV(sp2-el) 95.9 ml LVAs ap2 21.2 cm\S\2 LVLs ap2 6.9 cm ESV(MOD-sp2) 52.6 ml ESV(sp2-el) 55.8 ml EF(MOD-sp2) 43.9 % EF(sp2-el) 41.8 % LVLd %diff 3.3 % EDV(MOD-bp) 89.9 ml LVLs %diff 5.5 % ESV(MOD-bp) 52.6 ml EF(MOD-bp) 41.5 % SV(MOD-sp4) 36.3 ml SI(MOD-sp4) 25.1 ml/m\S\2 SV(MOD-sp2) 41.1 ml SI(MOD-sp2) 28.4 ml/m\S\2 SV(MOD-bp) 37.3 ml SI(MOD-bp) 25.8 ml/m\S\2 SV(sp4-el) 38.1 ml SI(sp4-el) 26.3 ml/m\S\2 SV(sp2-el) 40.1 ml SI(sp2-el) 27.8 ml/m\S\2 Doppler Measurements and Calculations MV E max randy 72.3 cm/sec MV A max randy 97.5 cm/sec MV E/A 0.74 MV dec time 0.16 sec Ao V2 max 119.4 cm/sec Ao max PG 5.7 mmHg Ao max PG (full) 2.7 mmHg LV V1 max PG 3.0 mmHg LV V1 max 86.3 cm/sec TR max randy 240.6 cm/sec
[2017-04-01 08:47] LABS: BASO % 0.2 %; BASO ABS # 0.02 K/uL (0-0.2); COMPLETE YES; EOS % 0.2 %; HEMATOCRIT 31.4 % (37-47); IG% 0.4 %; LYMPH % 17.5 %; LYMPH ABS # 1.43 K/uL (1.2-3.4); MEAN CELL VOLUME 81.6 fL (80-100); MEAN CORPUSCULAR HGB CONC 31.8 g/dl (32-36); MEAN PLATELET VOLUME 10.1 fL (7.4-10.4); MONO % 18.8 %; NEUT % 62.9 %; PLATELET COUNT 323 K/uL (130-400); RED BLOOD COUNT 3.85 M/uL (4.2-5.4); WHITE BLOOD COUNT 8.16 K/uL (4.8-10.8)
[2017-04-01] MEDS: CALCIUM 600MG + VIT D 400 IU TAB PO SCH ×2 (08:48→20:56)
[2017-04-01] MEDS: ASCORBIC ACID 500 MG TAB PO SCH (08:48)
[2017-04-01 09:06] LABS: BUN/CREATININE RATIO 25.7 (10-20); CALCIUM 8.5 mg/dl (8.5-10.1); CREATININE 0.42 mg/dl (0.60-1.20); POTASSIUM 3.8 mmol/L (3.5-5.1)
[2017-04-01] MEDS ORDERED: LEVALBUTEROL/IPRATROPIUM NEB INH PRN (10:15)
[2017-04-01] MEDS: CLINDAMYCIN IV 600 MG in DEXTROSE 5% 50ML 50 ML IV SCH ×2 (10:25→18:14)
--- NOTE | 2017-04-01 10:54 | CARDIOLOGY CONSULTATION ---
DATE OF CONSULTATION: 04/01/2017 REQUESTING PHYSICIAN: Evie Marques. EMAIL CAMPAIGN SPECIALIST: Gerber Curry DO of [facility] [address] [facility]. REASON FOR CONSULTATION: Elevated troponin and ST elevation TX. Dear Dr. Marques, Thank you for requesting cardiology consultation on Alla with regards to her EKG in the Emergency Room, which suggested ST elevation in leads V3-V6 without obvious reciprocal changes. She was brought to the Emergency Room after an episode of aspiration. She had choked on a piece of food at dinner that evening. She became progressively more short of breath. She has had a baseline cough that has been ongoing for a months. The cough acutely worsened. It became productive. Her cough over the last couple of months has been productive with greenish brown colored mucus. She has had difficulty clearing her sputum as she has a misshaped lung due to her history of scoliosis and her prior stroke. She was evaluated by Dr. Sosa of pulmonary medicine and was placed on antibiotics and the plan was for upcoming bronchoscopy. Upon evaluation in the Emergency Room, her pulse ox was 83% on room air. She initially required an Ambu bag and then was switched to nasal cannula 4 liters with improvement in her oxygenation. In addition, she was significantly tachycardic with heart rate of 129 and tachypneic with respirations in the range of 27. I was contacted last night. Given the fact that she is incredibly frail, she has ongoing issues of pneumonia including aspiration pneumonia and inability to clear secretions. Given the fact that she has ongoing weight loss and weighs approximately 42 kilograms and has a left-sided hemiparesis, the recommendation was medical therapy. She notes at home, she basically sits for the most part during the day. She is able to use her left leg slightly to help her walk with a walker. She has wonderful care provided by her granddaughter, who lives with her. In questioning Alla, She denies any chest pain or chest pressure in the last couple of days, weeks or even months. She is unaware that she may have had a heart attack in the past. She has had progressive shortness of breath and looks short of breath talking in sentences. She denies any palpitations, lightheadedness, dizziness, presyncope or syncope. Denies any lower extremity edema. Her appetite has been poor. Her weight continues to decline. The rest of review of systems is otherwise negative. PAST MEDICAL HISTORY: 1. Prior anterior myocardial infarction based on her echocardiogram with a moderate ischemic cardiomyopathy. 2. Elevated troponin with ST elevation in V3-V6, possibly representing extension of a previous infarct given her tachycardia, tachypnea and hypoxemia in the Emergency Room. 3. Ongoing pneumonia with a concern for aspiration pneumonia and inability to clear her secretions. 4. Prior stroke with left hemiparesis. 5. Scoliosis. FAMILY HISTORY: Noncontributory. SOCIAL HISTORY: She is a lifetime nonsmoker. She is . She is retired. Her granddaughter lives with her. ALLERGIES: PENICILLIN, SULFA AND QUINOLONES. OUTPATIENT MEDICATIONS: Include ascorbic acid, calcium, and Rosalba. PHYSICAL EXAMINATION: GENERAL: She is awake, alert, and oriented x3. She looks very frail and cachectic. She is short of breath talking in longer sentences. She is only able to look to the right. VITAL SIGNS: Her heart rate is 74, respirations 20, blood pressure 95/61 and her sat is 98% on 3 liters. HEENNT: Mildly reduced carotid upstrokes. No evidence of carotid bruits. Her jugular venous pressure appeared elevated. Her sclerae is anicteric. Her hearing is normal. LUNGS: Markedly decreased breath sounds in the right mid to lower base as well as the left mid to lower base with rhonchi in the left base. No obvious wheezing. HEART: Regular rate and rhythm. No appreciable murmurs, rubs or gallops. ABDOMEN: Soft, nontender, and nondistended. Positive bowel sounds. EXTREMITIES: No clubbing, cyanosis or edema. PSYCHIATRIC: Affect appeared appropriate. NEUROLOGIC: She is awake, alert, and oriented x3. CT of her chest yesterday negative for pulmonary embolism, progressive patchy infiltrates in the mid to lower lungs, moderate reactive mediastinal adenopathy, and moderate mucus plugging. LABORATORY STUDIES: WBC 15.5, hemoglobin 10, hematocrit 31.4, and platelet count is 323. Her sed rate was greater than 90. Her first troponin was 4.56. Her second is 4.74. Sodium 137, potassium 3.8, BUN 11, and creatinine 0.42. Her albumin was 2.3. Her rapid flu was negative. DIAGNOSTIC STUDIES: EKG, sinus tachycardia at 122 beats per minute, ST elevation in leads V3-V6 without reciprocal changes. Compared to her prior EKGs, the ST elevation is new. Echocardiogram personally reviewed, extensive prior LAD infarct with an ejection fraction in the range of 35%-40% with hypokinesis of the mid to distal anterior septum, mid to distal septum, mid to distal anterior wall apex and inferior apex. They appear thin and akinetic, suggesting a prior heart attack. IMPRESSIONS: 1. ST elevation in V3-V6 with associated tachycardia, tachypnea, and hypoxemia. 2. Echocardiogram with moderate LV dysfunction and thinning of the mid to distal LAD territory, suggesting an old prior anterior wall infarct. 3. Small troponin elevation. 4. Ongoing weight loss, aspiration pneumonia, inability to clear her secretions and a history of prior cerebrovascular accident with left hemiparesis. As discussed with the ER last night, given her significant comorbidities, ongoing weight loss, and frail state, I would recommend medical therapy. Given the fact that her troponin is only approximately 4.5, one would expect that if she had an extensive LAD infarct acutely that her troponin would be significantly higher. In addition, her echocardiogram suggested that the anterior wall and the LAD territory are thin and akinetic, suggesting she has had an infarct at some point in the distant past. It is possible just that she extended her infarct with her hypoxemia, tachycardia and tachypnea. She is currently on heparin. I would continue this for 48 hours and 81 mg of aspirin should be added. The benefit of statin therapy is questionable given her ongoing comorbidities. If her heart rate and blood pressure allow, I would add beta blockers. Unfortunately, currently, her blood pressure is low and precludes the use of beta blockers. All this was discussed with the patient and her granddaughter in addition ti interventional cardiology. Given her comorbidities and the fact she does not have chest pain and she is not having active heart failure symptoms, I would not recommend cardiac catheterization or aggressive intervention. Thank you for allowing us to participate in her care. FLIP
[2017-04-01 13:21] LABS: PARTIAL THROMBOPLASTIN RATIO 1.8
--- NOTE | 2017-04-01 13:41 | DIAGNOSTIC IMAGING REPORT ---
VIDEO SWALLOW HISTORY: Abnormal chest CT suspicious for aspiration. TECHNIQUE: Video fluoroscopic evaluation of swallowing was performed in the AP and lateral projections by the speech pathology staff. The patient is fed nectar-thick and thin liquid barium, a barium coated wafer, and barium pudding. FLUOROSCOPY TIME: 1.6 minutes. NUMBER OF FLUOROSCOPY IMAGES: 0 COMPARISON STUDY: CT angiography the chest dated 03/31/2017 FINDINGS: When swallowing thin liquid barium, there was silent aspiration. When swallowing nectar thick liquids, there was silent aspiration. When swallowing pudding, there was no evidence of penetration or aspiration. When swallowing a cracker with paste there is no aspiration or penetration. When swallowing thin liquids and nectar thick liquids there was piriform sinus retention. IMPRESSION: 1. Silent aspiration of thin and nectar thick liquids. 2. Please see the speech pathologist report for detailed findings and recommendations. Electronically signed by: Gerardo Davies M.D. 04/01/2017 1:40 PM Dictated Date/Time: 04/01/2017 1:38 PM
[2017-04-01] MEDS ORDERED: ASPIRIN 81 MG ECTAB PO ONE (14:00)
--- NOTE | 2017-04-01 15:13 | Pulmonary Consultation ---
History General Date of Service: Apr 01, 2017. Stated Complaint: Failure Of Op Treatment, Nstemi, Pneumonia HPI The patient is a 77 year old female who presents to [facility] with complaints of Failure Of Op Treatment, Nstemi, Pneumonia. The patient's primary care provider is Carlos Corbett M.D.. Mrs. Lui is a 77-year-old female with past medical history of scoliosis, ST elevation CO, CVA status post left hemiparesis, vitamin D deficiency who presents to the ER with complaints of acute shortness of breath while eating prior to admission. Per granddaughter Armida, who is her care provider, states that she has had a 4 month history of productive cough since the summer. Patient has history of recurrent pneumonia after stroke and not being able to clear secretions. She was recently treated for pneumonia as an outpatient in February 2017 with Cipro 250 mg 1 tablet by mouth every 12 hours for 2 weeks as well as guaifenesin/ codeine cough syrup, with improved symptoms. Patient admits to occasional shortness of breath and dyspnea on exertion. She has had a significant amount of weight loss due to decreased appetite. She uses a walker to ambulate. She denies any lower extremity edema, paroxysmal nocturnal dyspnea or orthopnea. She had a CT chest done on 03/12/2017 showed left lower lobe atelectasis secondary to fluid and left lower lobe as well as the lingula. Similar findings were also seen in the right middle lobe and bronchus intermedius. Multifocal airspace opacities were also seen throughout the lung with associated tree and bud nodularities within the lingula. There was some moderately enlarged mediastinal and left hilar lymphadenopathy suggestive of reactive process. Most recently her sputum has been whitish to yellowish in color. She denies any hemoptysis. Patient was scheduled to see legal support manager, Dr. Sosa, [facility] on 04/09/2017 had however presented to the ER with worsening of symptoms. Initial vital signs upon arrival to the ER were temperature 37.2, pulse 129, respiratory rate 20, blood pressure 100/54, pulse oximetry 83% on room air. She was placed on supplemental oxygen of 2 L with increase in SaO2 to 91%. Laboratory data showed a white blood cell count of 15, hemoglobin of 11, platelet count of 358. Chemistry was significant for sodium of 132, chloride 95 , BUN of 15 and creatinine of 0.63. Troponin was elevated at 4.56 with repeat troponins of 4.74 and 3.61. BNP 339. Total protein 8.4 and albumin 2.3. Venous lactate was 2.15. ESR is greater than 90 and CRP 13.7. Urinalysis was unremarkable. Blood cultures pending. Sputum cultures showed heavy normal li. Chest x-ray in the ER showed chronic consolidative changes in the left lung base with unchanging left lower lobe atelectasis; emphysematous changes. CT chest with contrast is negative for pulmonary embolism. However shows progression of consolidative changes in left lower lobe; moderate mucus plugging noted bilaterally. Patient was admitted for aspiration pneumonia and STEMI. She was started on heparin drip and broad-spectrum antibiotics. Historian: patient, family, other (EMR) Review of Systems Constitutional: reports: as stated in HPI Eyes: reports: as stated in HPI ENT: reports: as stated in HPI Cardiovascular: reports: as stated in HPI Respiratory: reports: as stated in HPI Gastrointestinal: reports: as stated in HPI Genitourinary - Female: reports: as stated in HPI Musculoskeletal: reports: as stated in HPI Integumentary: reports: as stated in HPI Neurologic: reports: as stated in HPI Psychiatric: reports: as stated in HPI Endocrine: as stated in HPI Hematologic / Lymphatic: as stated in HPI Allergic / Immunologic: as stated in HPI All Other Symptoms All Other Systems: Reviewed and Negative Past Medical History Past Medical History: Recurrent pneumonia Right CVA status post left hemiparesis Previous history of C. difficile colitis Vitamin D deficiency Scoliosis Anterior CO Family History Not contributory Social History She is a lifetime nonsmoker. No alcohol or illicit drug use. She is retired and . She lives with her granddaughters who are her primary care givers. Hx Tobacco Use In Past Year?: No Smoking Status: Never Smoker Marital status: Occupational Status: retired Immunizations History of Influenza Vaccine: No History of Tetanus Vaccine?: Yes History of Pneumococcal: Yes Pneumococcal Date: Feb 20, 2006 History of Hepatitis B Vaccine: No History of MDRO History of MDRO: No Allergies Coded Allergies: Penicillins (Verified Allergy, Mild, 03/31/17) Sulfa Antibiotics (Verified Allergy, Unknown, ?, 04/01/17) Quinolones (Verified Adverse Reaction, Mild, 03/31/17) Current Medications Reported Home Medications Medications Dose Route/Sig Max Daily Dose Days Date Category Vitamin C (Ascorbic Acid) 500 Mg Tab 500 Mg PO DAILY 03/31/17 Reported Caltrate 600 Plus * (Calcium/Vitamin D) Tab 600 Mg PO BID 07/08/11 Rx Rosalba * (Fexofenadine HCl) 180 Mg Tab 180 Mg PO DAILY PRN 03/16/07 Reported Physical Physical Exam Vital Signs: Date Time Temp Pulse Resp B/P (MAP) Pulse Ox O2 Delivery O2 Flow Rate FiO2 04/01/17 11:28 36.5 78 18 97/60 (72) 97 3.0 04/01/17 08:00 98 Nasal Cannula 3.0 04/01/17 07:43 37.0 74 20 95/61 (72) 98 3.0 04/01/17 04:00 Nasal Cannula 3.0 04/01/17 03:02 37.3 96 17 104/68 (80) 95 Nasal Cannula 3.0 03/31/17 23:59 Nasal Cannula 3.0 03/31/17 23:48 37.4 101 22 107/69 99 Nasal Cannula 3.0 03/31/17 23:18 102 26 115/65 98 03/31/17 23:00 102 26 115/65 98 Nasal Cannula 3.0 03/31/17 21:29 106 22 121/62 98 Nasal Cannula 4.0 03/31/17 20:55 117 03/31/17 20:41 89 27 89/69 99 Ambu-Bag 4.0 03/31/17 20:13 91 Ambu-Bag 2.0 03/31/17 20:01 91 Nasal Cannula 2.0 03/31/17 19:30 37.2 129 20 100/54 83 Room Air General Appearance: other (frail, cachectic chronically ill female) Head: NORMOCEPHALIC, ATRAUMATIC Eyes: PERRLA, NO DISCHARGE, EOMI, SCLERAE NORMAL, CONJUNCTIVAE NORMAL ENT: poor dentition Neck: NORMAL RANGE OF MOTION, NO TENDERNESS, TRACHEA MIDLINE, limited range of motion, other (head facing towards right) Respiratory: NO RESPIRATORY DISTRESS, other (diminished breath sounds laterally greater on the left base than on the right.) Cardiovasular: REGULAR RATE/RHYTHM, NORMAL S1S2, NO M/G/R Abdomen: NON TENDER, NORMAL BOWEL SOUNDS, NO REBOUND Back: NORMAL INSPECTION, NO MIDLINE TENDERNESS, NO CVA TENDERNESS Upper Extremities: NO EDEMA Lower Extremities: NO EDEMA, NO DEFORMITY, NORMAL ROM Neuro: ALERT, ORIENTED x 3 Psychiatric: NORMAL AFFECT, NO SUICIDAL IDEATION, CONTRACTS FOR SAFETY Diagnostics Labs Results Past 24 Hours Test 03/31/17 20:15 03/31/17 20:31 03/31/17 20:47 04/01/17 02:13 Range/Units Influenza Type A (RT-PCR) Neg for Influ A NEG Influenza Type A Antigen Neg for Influ A NEG Influenza Type B Antigen Neg for Influ B NEG Influenza Type B (RT-PCR) Neg for Influ B NEG White Blood Count 15.55 4.8-10.8 K/uL Red Blood Count 4.26 4.2-5.4 M/uL Hemoglobin 11.1 12.0-16.0 g/dL Hematocrit 35.0 37-47 % Mean Corpuscular Volume 82.2 80-100 fL Mean Corpuscular Hemoglobin 26.1 25-34 pg Mean Corpuscular Hemoglobin Concent 31.7 32-36 g/dl Platelet Count 358 130-400 K/uL Mean Platelet Volume 9.6 7.4-10.4 fL Neutrophils (%) (Auto) 78.7 % Lymphocytes (%) (Auto) 4.8 % Monocytes (%) (Auto) 15.9 % Eosinophils (%) (Auto) 0.1 % Basophils (%) (Auto) 0.1 % Neutrophils # (Auto) 12.23 1.4-6.5 K/uL Lymphocytes # (Auto) 0.74 1.2-3.4 K/uL Monocytes # (Auto) 2.48 0.11-0.59 K/uL Eosinophils # (Auto) 0.02 0-0.5 K/uL Basophils # (Auto) 0.02 0-0.2 K/uL RDW Standard Deviation 41.8 36.4-46.3 fL RDW Coefficient of Variation 13.9 11.5-14.5 % Immature Granulocyte % (Auto) 0.4 % Immature Granulocyte # (Auto) 0.06 0.00-0.02 K/uL Toxic Granulation OCCASIONAL Erythrocyte Sedimentation Rate > 90 0-21 mm/hr Prothrombin Time 11.7 9.0-12.0 SECONDS Prothromb Time International Ratio 1.1 0.9-1.1 Activated Partial Thromboplast Time 28.0 21.0-31.0 SECONDS Partial Thromboplastin Ratio 1.1 Venous Blood pH 7.44 7.36-7.41 Venous Blood Partial Pressure CO2 46 38.0-50.0 mmHg Venous Blood Partial Pressure O2 35 mmHg Venous Blood HCO3 30 mmol/L Venous Blood Oxygen Saturation 66.2 % Venous Blood Base Excess 5.3 mEq/L Sodium Level 132 136-145 mmol/L Potassium Level 4.1 3.5-5.1 mmol/L Chloride Level 95 98-107 mmol/L Carbon Dioxide Level 28 21-32 mmol/L Anion Gap 9.0 3-11 mmol/L Blood Urea Nitrogen 15 7-18 mg/dl Creatinine 0.63 0.60-1.20 mg/dl Est Creatinine Clear Calc Drug Dose 51.4 ml/min Estimated GFR () 100.3 Estimated GFR (Non- 86.5 BUN/Creatinine Ratio 23.7 10-20 Random Glucose 167 70-99 mg/dl Calcium Level 8.8 8.5-10.1 mg/dl Phosphorus Level 2.6 2.5-4.9 mg/dl Magnesium Level 1.8 1.8-2.4 mg/dl Total Bilirubin 0.4 0.2-1 mg/dl Aspartate Amino Transf (AST/SGOT) 23 15-37 U/L Alanine Aminotransferase (ALT/SGPT) 16 12-78 U/L Alkaline Phosphatase 85 45-117 U/L Total Creatine Kinase 78 26-192 U/L Creatine Kinase MB 14.3 0.5-3.6 ng/ml Creatine Kinase MB Ratio 18.3 0-3.0 Troponin I 4.560 4.740 0-0.045 ng/ml C-Reactive Protein 13.70 0-0.29 mg/dl Pro-B-Type Natriuretic Peptide 339 0-1800 pg/ml Total Protein 8.4 6.4-8.2 gm/dl Albumin 2.3 3.4-5.0 gm/dl Globulin 6.1 2.5-4.0 gm/dl Albumin/Globulin Ratio 0.4 0.9-2 Lipase 79 73-393 U/L Bedside Lactic Acid Venous 2.15 0.90-1.70 mmol/L Test 04/01/17 05:10 04/01/17 08:29 Range/Units White Blood Count 8.16 4.8-10.8 K/uL Red Blood Count 3.85 4.2-5.4 M/uL Hemoglobin 10.0 12.0-16.0 g/dL Hematocrit 31.4 37-47 % Mean Corpuscular Volume 81.6 80-100 fL Mean Corpuscular Hemoglobin 26.0 25-34 pg Mean Corpuscular Hemoglobin Concent 31.8 32-36 g/dl Platelet Count 323 130-400 K/uL Mean Platelet Volume 10.1 7.4-10.4 fL Neutrophils (%) (Auto) 62.9 % Lymphocytes (%) (Auto) 17.5 % Monocytes (%) (Auto) 18.8 % Eosinophils (%) (Auto) 0.2 % Basophils (%) (Auto) 0.2 % Neutrophils # (Auto) 5.13 1.4-6.5 K/uL Lymphocytes # (Auto) 1.43 1.2-3.4 K/uL Monocytes # (Auto) 1.53 0.11-0.59 K/uL Eosinophils # (Auto) 0.02 0-0.5 K/uL Basophils # (Auto) 0.02 0-0.2 K/uL RDW Standard Deviation 41.7 36.4-46.3 fL RDW Coefficient of Variation 13.9 11.5-14.5 % Immature Granulocyte % (Auto) 0.4 % Immature Granulocyte # (Auto) 0.03 0.00-0.02 K/uL Activated Partial Thromboplast Time 35.2 21.0-31.0 SECONDS Partial Thromboplastin Ratio 1.4 Sodium Level 137 136-145 mmol/L Potassium Level 3.8 3.5-5.1 mmol/L Chloride Level 101 98-107 mmol/L Carbon Dioxide Level 29 21-32 mmol/L Anion Gap 7.0 3-11 mmol/L Blood Urea Nitrogen 11 7-18 mg/dl Creatinine 0.42 0.60-1.20 mg/dl Est Creatinine Clear Calc Drug Dose 74.7 ml/min Estimated GFR () 114.6 Estimated GFR (Non- 98.9 BUN/Creatinine Ratio 25.7 10-20 Random Glucose 115 70-99 mg/dl Lactic Acid Level 1.1 0.4-2.0 mmol/L Calcium Level 8.5 8.5-10.1 mg/dl Troponin I 3.610 0-0.045 ng/ml Microbiology Results 03/31/17 Blood Culture, Received Pending 03/31/17 Blood Culture, Received Pending 03/31/17 Gram Stain - Final, Resulted 03/31/17 Sputum Culture, Resulted Pending Diagnostic Radiology (CHEST FOR PE) ANGIO WITH 03/31/2017 CT DOSE: 288.58 mGy.cm HISTORY: Dyspnea TECHNIQUE: Multiaxial CT images of the chest were performed following the intravenous administration of contrast to evaluate the pulmonary arteries. Maximal intensity projection images were also obtained. A dose lowering technique was utilized adhering to the principles of ALARA. COMPARISON STUDY: 03/12/2017 FINDINGS: No evidence for aneurysm or dissection of the thoracic aorta. Pulmonary vasculature enhances appropriately. Progressive consolidative changes left base. Somewhat progressive patchy parenchymal infiltrates the mid to lower lung regions bilaterally. Moderate reactive mediastinal adenopathy similar to and are slightly increased in the prior exam. Pulmonary apices are clear. Moderate mucous plugging is noted bilaterally. IMPRESSION: 1. Study is negative for pulmonary embolus. 2. Progressive consolidative change left lower lobe. 3. Progressive and/or interval development of bibasilar and mid lung parenchymal infiltrative changes. 4. This raises the possibility of ongoing aspiration type change. 5. Mildly progressive mediastinal and hilar adenopathy. CHEST ONE VIEW PORTABLE 03/31/2017 CLINICAL HISTORY: Sepsis fever COMPARISON STUDY: 07/03/2011 FINDINGS: Emphysematous change. Chronic deformity of the thoracic region. Chronic increased density left lung base. Chronic left lower lobe atelectasis. No new or interval findings are present. IMPRESSION: 1. Chronic consolidative change left lung base with unchanging left lower lobe atelectatic atelectasis. 2. Emphysematous change. 3. No evidence for new or interval finding. TTE 04/01/2017 -- Conclusions -- * The left ventricle is grossly normal size. * There is normal left ventricular wall thickness. * Left ventricular systolic function is moderately reduced. * Ejection Fraction = 35-40%. * There is an extensive LAD wall motion abnormality. * The mid to distal anteroseptum, mid to distal septum, mid to distal anterior wall, apex and inferoapex are thin and akinetic. * There is no thrombus. * The right ventricle is normal in size and function. * Grade I diastolic dysfunction, (abnormal relaxation pattern). VIDEO SWALLOW 04/01/2017 HISTORY: Abnormal chest CT suspicious for aspiration. TECHNIQUE: Video fluoroscopic evaluation of swallowing was performed in the AP and lateral projections by the speech pathology staff. The patient is fed nectar-thick and thin liquid barium, a barium coated wafer, and barium pudding. FLUOROSCOPY TIME: 1.6 minutes. NUMBER OF FLUOROSCOPY IMAGES: 0 COMPARISON STUDY: CT angiography the chest dated 03/31/2017 FINDINGS: When swallowing thin liquid barium, there was silent aspiration. When swallowing nectar thick liquids, there was silent aspiration. When swallowing pudding, there was no evidence of penetration or aspiration. When swallowing a cracker with paste there is no aspiration or penetration. When swallowing thin liquids and nectar thick liquids there was piriform sinus retention. IMPRESSION: 1. Silent aspiration of thin and nectar thick liquids. 2. Please see the speech pathologist report for detailed findings and recommendations. EKG EKG 03/31/2017 Ventricular rate 122 bpm Sinus tachycardia with short NE Anterior infarct , age undetermined Lateral injury pattern with ST elevations V4-V6 Impression Assessment and Plan Hypoxemia Aspiration pneumonia Failure to thrive ST elevation CO History of Scoliosis Mrs. Lui is a 77-year-old female who presents with acute hypoxemia secondary to aspiration. Patient has long-standing history of aspiration from previous CVA. Over the last few months she has been unable to handle her secretions which is precipitated her chronic cough and bilateral pneumonia. The dense consolidation on the left lower lobe as well as tree-in-bud findings within the lingula are suggestive of infectious/inflammatory etiologies. She has failed outpatient therapy with ciprofloxacin. Nonetheless she does have elevation in troponins as well as acute changes in her EKG suggestive of dynamic cardiac process. Recommendations At the current time I do not feel that a routine bronchoscopy is warranted at this time. Recommended guidelines suggest that patients should undergo routine bronchoscopy at least 6 weeks after acute cardiac event. Cardiology is on board and following. She is currently saturating adequately on 2-3 L nasal cannula. She appears to be in no acute respiratory distress. I would proceed conservatively with medical management of broad-spectrum antibiotics to cover for anaerobes, atypicals, gram-positive and negative bacteria. She is currently on vancomycin and cefepime. Levaquin has been discontinued. I would consider adding azithromycin to cover for atypicals. Sputum cultures at this time show normal heavy li. We should send her pro-calcitonin. Continue with nebulizers when necessary. I also recommend aggressive pulmonary toilet was as patient is unable to adequately clear her secretions. She will therefore need assistance and frequent suctioning from nursing staff as well as respiratory therapy. I will order a chest PT vibration vest and Mucomyst to assist with this. Video swallow evaluation is consistent with silent aspiration therefore aspiration precautions should be in place. I appreciate the consult. Please contact me if you've any further questions or concerns.
[2017-04-01] MEDS ORDERED: AZITHROMYCIN IV 500 MG in DEXTROSE 5% 250ML 250 ML IV ONE (15:30)
[2017-04-01] MEDS ORDERED: SODIUM CHLORIDE 0.9% 1000ML 1,000 ML IV ONE (15:45)
[2017-04-01] MEDS: ACETYLCYSTEINE 20% INHAL SOLN ***DISPENSED BY RESP. INH SCH (20:29)
[2017-04-01] MEDS: ATORVASTATIN 40 MG TAB PO SCH (20:56)
--- NOTE | 2017-04-01 21:06 | Medical Student: [facility] ---
Med Student Progress Note Date of Service Apr 01, 2017. Subjective Pt evaluation today including: conversation w/ patient, conversation w/ family , physical exam, chart review, lab review Voiding: incontinence Patient states that last night she was eating Thelma steak and aspirated it. This lead her to have a coughing attack, from which she became short of breath so much so that she came to the ED. She states that she has a history of aspirations due to past medical history (scoliosis and stroke causing left sided hemiparesis). She states she had pneumonia (of unknown type) in October/ November of this year. Three weeks ago, she sought treatment for her most recent episode. She was put on a 10 day course of antibiotics, which was increased 5 additional days. She finished the course of this antibiotic about a week ago. During this entire 3 week period she states that she had productive coughing and sputum that was pink tinted throughout. She states that there was no blood clots / blood stranding in the sputum. In the morning is when she has the worst shortness of breath over the last few weeks. Her son told her granddaughter, which I had the pleasure of speaking with in the room with the patient, that the patient has a smoking history that is estimated to be between 1 - 2 PPD for 40 years. She has abstained from smoking for the last approx. 25 years. Much of the history was obtained from the granddaughter as the patient was not a great historian for the timeline of her illnesses and medical care surrounding them. Review of Systems Eyes: No worsening of vision, No eye pain Respiratory: + cough, + sputum, + wheezing, + shortness of breath Cardiac: No chest pain, No edema Female : + incontinence, No dysuria, No urinary frequency, No hematuria Neurologic: + numbness/tingling (some, minor tingling / pain in her right leg that seems to come and go) Objective Vital Signs Date Time Temp Pulse Resp B/P (MAP) Pulse Ox O2 Delivery O2 Flow Rate FiO2 04/01/17 19:39 37.5 93 18 89/54 (66) 98 Nasal Cannula 4.0 04/01/17 16:02 37.1 99 16 89/56 (67) 99 Nasal Cannula 3.0 04/01/17 16:00 97 Nasal Cannula 3.0 04/01/17 12:00 97 Nasal Cannula 3.0 04/01/17 11:28 36.5 78 18 97/60 (72) 97 3.0 04/01/17 08:00 98 Nasal Cannula 3.0 04/01/17 07:43 37.0 74 20 95/61 (72) 98 3.0 04/01/17 04:00 Nasal Cannula 3.0 04/01/17 03:02 37.3 96 17 104/68 (80) 95 Nasal Cannula 3.0 03/31/17 23:59 Nasal Cannula 3.0 03/31/17 23:48 37.4 101 22 107/69 99 Nasal Cannula 3.0 03/31/17 23:18 102 26 115/65 98 03/31/17 23:00 102 26 115/65 98 Nasal Cannula 3.0 03/31/17 21:29 106 22 121/62 98 Nasal Cannula 4.0 03/31/17 20:55 117 03/31/17 20:41 89 27 89/69 99 Ambu-Bag 4.0 Physical Exam General Appearance: + mild distress, + cachetic, + thin Neck: supple, no JVD Respiratory/Chest: chest non-tender, + decreased breath sounds, + wheezing, + pertinent finding (weak respirations with poor air movement) Cardiovascular: regular rate, rhythm, no edema, no gallop, no JVD, no murmur Extremities: no pedal edema, no calf tenderness Neurologic/Psychiatric: alert, normal mood/affect, oriented x 3 Skin: normal color, warm/dry, no rash Laboratory Results Last 24 Hours Date/Time Source Procedure Growth Status 03/31/17 20:31 Blood Blood Culture Pending Received 03/31/17 20:10 Blood Blood Culture Pending Received 03/31/17 20:15 Sputum Expectorated Sputum Gram Stain - Final Resulted 03/31/17 20:15 Sputum Expectorated Sputum Sputum Culture - Preliminary HEAVY NORMAL MAINOR Present, Final Rep... Resulted Test 03/31/17 20:15 03/31/17 20:31 03/31/17 20:47 04/01/17 02:13 Influenza Type A (RT-PCR) Neg for Influ A Influenza Type A Antigen Neg for Influ A Influenza Type B Antigen Neg for Influ B Influenza Type B (RT-PCR) Neg for Influ B White Blood Count 15.55 K/uL Red Blood Count 4.26 M/uL Hemoglobin 11.1 g/dL Hematocrit 35.0 % Mean Corpuscular Volume 82.2 fL Mean Corpuscular Hemoglobin 26.1 pg Mean Corpuscular Hemoglobin Concent 31.7 g/dl Platelet Count 358 K/uL Mean Platelet Volume 9.6 fL Neutrophils (%) (Auto) 78.7 % Lymphocytes (%) (Auto) 4.8 % Monocytes (%) (Auto) 15.9 % Eosinophils (%) (Auto) 0.1 % Basophils (%) (Auto) 0.1 % Neutrophils # (Auto) 12.23 K/uL Lymphocytes # (Auto) 0.74 K/uL Monocytes # (Auto) 2.48 K/uL Eosinophils # (Auto) 0.02 K/uL Basophils # (Auto) 0.02 K/uL RDW Standard Deviation 41.8 fL RDW Coefficient of Variation 13.9 % Immature Granulocyte % (Auto) 0.4 % Immature Granulocyte # (Auto) 0.06 K/uL Toxic Granulation OCCASIONAL Erythrocyte Sedimentation Rate > 90 mm/hr Prothrombin Time 11.7 SECONDS Prothromb Time International Ratio 1.1 Activated Partial Thromboplast Time 28.0 SECONDS Partial Thromboplastin Ratio 1.1 Venous Blood pH 7.44 Venous Blood Partial Pressure CO2 46 mmHg Venous Blood Partial Pressure O2 35 mmHg Venous Blood HCO3 30 mmol/L Venous Blood Oxygen Saturation 66.2 % Venous Blood Base Excess 5.3 mEq/L Sodium Level 132 mmol/L Potassium Level 4.1 mmol/L Chloride Level 95 mmol/L Carbon Dioxide Level 28 mmol/L Anion Gap 9.0 mmol/L Blood Urea Nitrogen 15 mg/dl Creatinine 0.63 mg/dl Est Creatinine Clear Calc Drug Dose 51.4 ml/min Estimated GFR () 100.3 Estimated GFR (Non- 86.5 BUN/Creatinine Ratio 23.7 Random Glucose 167 mg/dl Calcium Level 8.8 mg/dl Phosphorus Level 2.6 mg/dl Magnesium Level 1.8 mg/dl Total Bilirubin 0.4 mg/dl Aspartate Amino Transf (AST/SGOT) 23 U/L Alanine Aminotransferase (ALT/SGPT) 16 U/L Alkaline Phosphatase 85 U/L Total Creatine Kinase 78 U/L Creatine Kinase MB 14.3 ng/ml Creatine Kinase MB Ratio 18.3 Troponin I 4.560 ng/ml 4.740 ng/ml C-Reactive Protein 13.70 mg/dl Pro-B-Type Natriuretic Peptide 339 pg/ml Total Protein 8.4 gm/dl Albumin 2.3 gm/dl Globulin 6.1 gm/dl Albumin/Globulin Ratio 0.4 Lipase 79 U/L Bedside Lactic Acid Venous 2.15 mmol/L Test 04/01/17 05:10 04/01/17 08:29 04/01/17 12:45 04/01/17 13:58 White Blood Count 8.16 K/uL Red Blood Count 3.85 M/uL Hemoglobin 10.0 g/dL Hematocrit 31.4 % Mean Corpuscular Volume 81.6 fL Mean Corpuscular Hemoglobin 26.0 pg Mean Corpuscular Hemoglobin Concent 31.8 g/dl Platelet Count 323 K/uL Mean Platelet Volume 10.1 fL Neutrophils (%) (Auto) 62.9 % Lymphocytes (%) (Auto) 17.5 % Monocytes (%) (Auto) 18.8 % Eosinophils (%) (Auto) 0.2 % Basophils (%) (Auto) 0.2 % Neutrophils # (Auto) 5.13 K/uL Lymphocytes # (Auto) 1.43 K/uL Monocytes # (Auto) 1.53 K/uL Eosinophils # (Auto) 0.02 K/uL Basophils # (Auto) 0.02 K/uL RDW Standard Deviation 41.7 fL RDW Coefficient of Variation 13.9 % Immature Granulocyte % (Auto) 0.4 % Immature Granulocyte # (Auto) 0.03 K/uL Activated Partial Thromboplast Time 35.2 SECONDS 47.8 SECONDS Partial Thromboplastin Ratio 1.4 1.8 Sodium Level 137 mmol/L Potassium Level 3.8 mmol/L Chloride Level 101 mmol/L Carbon Dioxide Level 29 mmol/L Anion Gap 7.0 mmol/L Blood Urea Nitrogen 11 mg/dl Creatinine 0.42 mg/dl Est Creatinine Clear Calc Drug Dose 74.7 ml/min Estimated GFR () 114.6 Estimated GFR (Non- 98.9 BUN/Creatinine Ratio 25.7 Random Glucose 115 mg/dl Lactic Acid Level 1.1 mmol/L Calcium Level 8.5 mg/dl Troponin I 3.610 ng/ml 3.330 ng/ml Medications Current Inpatient Medications Medications (Trade) Dose Ordered Sig/Irene Route Start Time Stop Time Status Last Admin Dose Admin Ioversol (Optiray 320) 100 ml UD PRN IV 03/31/17 21:30 04/04/17 21:29 Acetaminophen (Tylenol Tab) 650 mg Q4H PRN PO 03/31/17 22:30 04/30/17 22:29 Al Hydrox/Mg Hydrox/Simethicone (Maalox Max Susp) 15 ml Q4H PRN PO 03/31/17 22:30 04/30/17 22:29 Magnesium Hydroxide (Milk Of Magnesia Susp) 30 ml Q12H PRN PO 03/31/17 22:30 04/30/17 22:29 Ondansetron HCl (Zofran Inj) 4 mg Q6H PRN IV 03/31/17 22:30 04/30/17 22:29 Ascorbic Acid (Vitamin C Tab) 500 mg DAILY PO 04/01/17 09:00 05/01/17 08:59 04/01/17 08:48 500 MG Calcium/Vitamin D (Caltrate Plus Tab) 1 tab BID PO 04/01/17 09:00 05/01/17 08:59 04/01/17 08:48 1 TAB Fexofenadine HCl (Rosalba Tab) 180 mg DAILY PRN PO 03/31/17 22:30 04/30/17 22:29 Cefepime HCl 1000 mg/Syringe 11 ml @ 5.5 mls/min Q8H IV 04/01/17 04:00 04/08/17 03:59 04/01/17 19:58 5.5 MLS/MIN Heparin Sodium/ Dextrose 500 ml @ 19 mls/hr Q24H PRN IV 04/01/17 00:30 05/01/17 00:29 04/01/17 07:06 19 MLS/HR Clindamycin Phosphate 600 mg/ Dextrose 54 ml @ 100 mls/hr Q8H IV 04/01/17 10:00 04/08/17 09:59 04/01/17 18:14 100 MLS/HR Atorvastatin Calcium (Lipitor Tab) 40 mg HS PO 04/01/17 21:00 05/01/17 20:59 Ipratropium [place] (Atrovent 0.02% 0.5MG/2.5ML Neb) 0.5 mg Q6R PRN INH 04/01/17 10:30 05/01/17 10:29 Levalbuterol (Xopenex 1.25MG/ 0.5ML Neb) 1.25 mg Q6R PRN INH 04/01/17 10:30 05/01/17 10:29 Aspirin (Ecotrin Tab) 81 mg QAM PO 04/02/17 09:00 05/02/17 08:59 Acetylcysteine (Mucomyst 20% Inh Soln) 3 ml BID INH 04/01/17 21:00 05/01/17 20:59 Azithromycin 500 mg/Dextrose 255 ml @ 125 mls/hr DAILY IV 04/02/17 09:00 04/08/17 08:59 Sodium Chloride 1,000 ml @ 75 mls/hr [id number] ONCE IV 04/01/17 15:45 04/02/17 05:04 04/01/17 15:59 75 MLS/HR Assessment and Plan Assessment and Plan: Aspiration Pneumonia (new plus failure of outpatient treatment prior) -continue cefepime -CXR from ED with LLL consolidation noted -obtain speech/language eval. for future diet recommendations, obtain swallowing study -Pulm consult for bronchoscopy, their recommendations of not doing it due to NSTEMI are appreciated -Sputum cultures obtained -CBC evaluated - anemia noted, patient is stable but this will be watched recent NSTEMI -Cardiology consult -trend troponin and CK-MB -ECHO results appreciated -EKG with repeat EKG results notable for changes Heparin drip Scoliosis -Educated about effect of condition on risk for aspiration History of stroke -some left sided hemiparesis due to this -educated about effect of condition on risk for aspiration Patient is full code status
[2017-04-01 21:35] LABS: URINE APPEARANCE TURBID (CLEAR); URINE BILIRUBIN NEG (NEG); URINE COLOR DK YELLOW; URINE EPITHELIAL CELL AUTO >30 /lpf (0-5); URINE NITRITE NEG (NEG); URINE PH 5.5 (4.5-7.5); URINE SPECIFIC GRAVITY 1.026 (1.000-1.030); UROBILINOGEN NEG (NEG); ZZUR CULT IF INDIC CLEAN CATCH NO
[2017-04-01 21:36] LABS: MANUAL MICROSCOPIC REQUIRED? NO; REVIEW REQ? YES
[2017-04-01 21:46] LABS: URINE PATH CASTS 0-3 GRANULAR CASTS /lpf (0)
[2017-04-02] VITALS (12 sets, daily range): BP systolic 85–109; BP diastolic 50–71; PULSE 86–101; TEMP 36.6–37.2; O2SAT 95–100
[2017-04-02] MEDS: HEPARIN 25,000 UNIT/500ML D5W 500 ML IV PRN ×2 (00:52→09:59)
[2017-04-02] MEDS: CLINDAMYCIN IV 600 MG in DEXTROSE 5% 50ML 50 ML IV SCH ×3 (01:59→17:48)
[2017-04-02] MEDS: CEFEPIME IV 1,000 MG in SYRINGE 0 ML IV SCH ×3 (03:38→21:16)
[2017-04-02] MEDS: IPRATROPIUM BROMIDE NEB SOLN 0.02% 2.5 ML VIAL INH PRN ×2 (07:15→19:43)
[2017-04-02] MEDS: ACETYLCYSTEINE 20% INHAL SOLN ***DISPENSED BY RESP. INH SCH ×2 (07:15→19:43)
[2017-04-02] MEDS: LEVALBUTEROL 1.25MG/0.5ML NEB INH PRN ×2 (07:15→19:43)
[2017-04-02 08:01] LABS: HEMATOCRIT 31.3 % (37-47); MEAN CELL VOLUME 81.9 fL (80-100); MEAN CORPUSCULAR HEMOGLOBIN 25.9 pg (25-34); MEAN CORPUSCULAR HGB CONC 31.6 g/dl (32-36); MEAN PLATELET VOLUME 9.8 fL (7.4-10.4); PLATELET COUNT 303 K/uL (130-400); RED BLOOD COUNT 3.82 M/uL (4.2-5.4); WHITE BLOOD COUNT 6.89 K/uL (4.8-10.8)
--- NOTE | 2017-04-02 08:11 | Clinical Documentation Query ---
MARIA E Hirsch : CLINICAL DOCUMENTATION QUERIES QUERY 1 OF 2 Patient is a 77 year old female admitted for evaluation and treatment of sepsis secondary to aspiration pneumonia. BMI noted to be 15.3 kg/m*m. Noted to be "cachectic, thin". History of R CVA and left sided hemiparesis leading to aspiration susceptibility. Pulmonary sap solution manager consultant noted "has had a significant amount of weight loss due to decreased appetite". In your clinical opinion is this patient being managed for: ( ) Severe protein-calorie malnutrition ( ) Moderate protein-calorie malnutrition ( ) Not Agree ( ) Other explanation of clinical findings (Please Explain) ( ) Unable to determine (Please Define) ( ) Need to Discuss The medical record reflects the following clinical findings, treatment, and risk factors. Clinical Indicators: Poor intake, low BMI, weight loss, Treatment: AHA dental soft, honey thick diet, engineering and scientific programmer consultation Risk Factors: Age, prior CVA/L hemiparesis, swallowing difficulty QUERY 2 OF 2 Documentation includes "Prior NSTEMI, worsened by hypoxemia". Troponin elevated to 95 times the upper limit of normal. Cardiology suggested, per echo, that "this may represent an extension of a prior heart attack". Accordingly, this still represents a new event if believed to have occurred in the past 4 weeks per CMS coding guidelines. As serum troponin would not be expected to be elevated > 4 weeks post [place], consider clarification as suggested below. Additionally, as above, documentation included "NSTEMI". ST elevation was noted on EKG anteriorly (as compared to NSTEMI). She is being monitored on telemetry, seen by cardiology, started on IV Heparin, ASA, Lipitor, serial labs, echo, etc...Please clarify as clinically appropriate. In your clinical opinion is this patient being managed for: ( ) STEMI less than 4 weeks old, as evidenced by troponin 95 times the upper limit of normal, ST elevation in contiguous leads, echocardiogram read to include "hypokinesis of the mid to distal anterior septum, mid to distal septum, mid to distal anterior wall apex and inferior apex", with anginal equivalents of tachypnea and progressive shortness of breath ( ) Not Agree ( ) Other explanation of clinical findings (Please Explain) ( ) Unable to determine (Please Define) ( ) Need to Discuss The medical record reflects the following clinical findings, treatment, and risk factors. Clinical Indicators: As above Treatment: IV Heparin, serial troponin's, echocardiogram, ASA, consideration of beta blockers Risk Factors: Age, infection Please clarify and document your clinical opinion in the progress notes and discharge summary. Terms such as "probable", "suspected", "likely", "questionable", "possible", or "still to be ruled out" are acceptable. IF IN AGREEMENT, YOU MUST DOCUMENT ABOVE DIAGNOSTIC STATEMENT IN DAILY PROGRESS NOTES AND DISCHARGE SUMMARY. This document is not part of the patient's record. Thank You, Kentrell Sheehan, RN [phone]
--- NOTE | 2017-04-02 08:14 | Clinical Documentation Query ---
Dr. KHALIL, REJI : CLINICAL DOCUMENTATION QUERIES QUERY 1 OF 2 Patient is a 77 year old female admitted for evaluation and treatment of sepsis secondary to aspiration pneumonia. BMI noted to be 15.3 kg/m*m. Noted to be "cachectic, thin". History of R CVA and left sided hemiparesis leading to aspiration susceptibility. Pulmonary ent consultant noted "has had a significant amount of weight loss due to decreased appetite". In your clinical opinion is this patient being managed for: ( ) Severe protein-calorie malnutrition ( ) Moderate protein-calorie malnutrition ( ) Not Agree ( ) Other explanation of clinical findings (Please Explain) ( ) Unable to determine (Please Define) ( ) Need to Discuss The medical record reflects the following clinical findings, treatment, and risk factors. Clinical Indicators: Poor intake, low BMI, weight loss, Treatment: AHA dental soft, honey thick diet, cardiac exercise physiologist consultation Risk Factors: Age, prior CVA/L hemiparesis, swallowing difficulty QUERY 2 OF 2 Documentation includes "Prior NSTEMI, worsened by hypoxemia". Troponin elevated to 95 times the upper limit of normal. Cardiology suggested, per echo, that "this may represent an extension of a prior heart attack". Accordingly, this still represents a new event if believed to have occurred in the past 4 weeks per CMS coding guidelines. As serum troponin would not be expected to be elevated > 4 weeks post [place], consider clarification as suggested below. Additionally, as above, documentation included "NSTEMI". ST elevation was noted on EKG anteriorly (as compared to NSTEMI). She is being monitored on telemetry, seen by cardiology, started on IV Heparin, ASA, Lipitor, serial labs, echo, etc...Please clarify as clinically appropriate. In your clinical opinion is this patient being managed for: ( ) STEMI less than 4 weeks old, as evidenced by troponin 95 times the upper limit of normal, ST elevation in contiguous leads, echocardiogram read to include "hypokinesis of the mid to distal anterior septum, mid to distal septum, mid to distal anterior wall apex and inferior apex", with anginal equivalents of tachypnea and progressive shortness of breath ( ) Not Agree ( ) Other explanation of clinical findings (Please Explain) ( ) Unable to determine (Please Define) ( ) Need to Discuss The medical record reflects the following clinical findings, treatment, and risk factors. Clinical Indicators: As above Treatment: IV Heparin, serial troponin's, echocardiogram, ASA, consideration of beta blockers Risk Factors: Age, infection Please clarify and document your clinical opinion in the progress notes and discharge summary. Terms such as "probable", "suspected", "likely", "questionable", "possible", or "still to be ruled out" are acceptable. IF IN AGREEMENT, YOU MUST DOCUMENT ABOVE DIAGNOSTIC STATEMENT IN DAILY PROGRESS NOTES AND DISCHARGE SUMMARY. This document is not part of the patient's record. Thank You, Kentrell Sheehan, RN [phone]
[2017-04-02 08:15] LABS: PARTIAL THROMBOPLASTIN RATIO 1.8
[2017-04-02 08:17] LABS: BUN/CREATININE RATIO 21.7 (10-20); CALCIUM 8.4 mg/dl (8.5-10.1); CREATININE 0.4 mg/dl (0.60-1.20)
[2017-04-02] MEDS: AZITHROMYCIN IV 500 MG in DEXTROSE 5% 250ML 250 ML IV SCH (08:47)
[2017-04-02] MEDS: CALCIUM 600MG + VIT D 400 IU TAB PO SCH ×2 (08:48→21:16)
[2017-04-02] MEDS: ASPIRIN 81 MG ECTAB PO SCH (08:48)
[2017-04-02] MEDS: ASCORBIC ACID 500 MG TAB PO SCH (08:48)
[2017-04-02] MEDS ORDERED: HEPARIN IV BOLUS 2,000 UNIT in SYRINGE 0 ML IV ONE (09:30)
--- NOTE | 2017-04-02 09:37 | Cardiology Follow-Up ---
Subjective General Date of Service: Apr 02, 2017. Pt evaluation today including: conversation w/ patient, chart review, lab review, review of studies History of Present Illness The patient is a 77 year old female with STEMI Allergies Coded Allergies: Penicillins (Verified Allergy, Mild, 03/31/17) Sulfa Antibiotics (Verified Allergy, Unknown, ?, 04/01/17) Quinolones (Verified Adverse Reaction, Mild, 03/31/17) Social History Smoking Status: Never Smoker Hx Tobacco Use In Past Year?: No Hx Alcohol Use - Type And Amou: No Hx Substance Use - Type And Am: No Problem List Medical Problems: (1) Hypoxia Status: Acute (2) NSTEMI (non-ST elevated myocardial infarction) Status: Acute (3) Pneumonia Status: Acute Review of Systems Respiratory: + cough, + sputum, + shortness of breath, + dyspnea at rest Cardiac: No chest pain, No edema, No palpitations Physical Exam Vital Signs Last Vital Signs Documentation Date Time Temp Pulse Resp B/P (MAP) Pulse Ox O2 Delivery O2 Flow Rate FiO2 04/02/17 07:57 37.0 96 20 101/57 (72) 95 Nasal Cannula 3.0 Physical Exam Constitutional: General Apperance: cachectic Level of Distress: chronically ill Lungs: Auscultation: no wheezing, decreased breath sounds (b/l basal and mid lung ha), rhonchi Cardiovascular: Heart Auscultation: RRR, no murmurs, no rubs, no gallops, tachycardia Abdomen: Bowel Sounds: normal Inspection & Palpation: soft, non-distended, no tenderness, guarding & rebound Extremities: no edema Assessment and Plan Assessment and Plan IMPRESSIONS: 1. ST elevation WA with ST elevation in V3-V6 with associated tachycardia, tachypnea, and hypoxemia. 2. Echocardiogram with moderate LV dysfunction and thinning of the mid to distal LAD territory, suggesting an old prior anterior wall infarct. 3. Small troponin elevation. 4. Ongoing weight loss, aspiration pneumonia, inability to clear her secretions and a history of prior cerebrovascular accident with left hemiparesis. Given comorbidities continue with medical TX; d/w interventional cardiology ASA and Statin Tx Stop heparin tomorrow morning Based on Guidelines should be on Plavix for a year--?? benefit and risk of hemoptysis BB if BP allows--would be interesting to know outpt BP's--?? get away with 12.5 of toprol if BP chronically low Chest PT and antibiotics Poor prognosis Laboratory Results Last 24 Hours Test 04/01/17 12:45 04/01/17 13:58 04/01/17 21:13 04/02/17 07:38 Activated Partial Thromboplast Time 47.8 SECONDS 46.7 SECONDS Partial Thromboplastin Ratio 1.8 1.8 Troponin I 3.330 ng/ml Urine Color DK YELLOW Urine Appearance TURBID Urine pH 5.5 Urine Specific [place] 1.026 Urine Protein NEG Urine Glucose (UA) NEG Urine Ketones NEG Urine Occult Blood TRACE Urine Nitrite NEG Urine Bilirubin NEG Urine Urobilinogen NEG Urine Leukocyte Esterase SMALL Urine WBC (Auto) 1-5 /hpf Urine RBC (Auto) 10-30 /hpf Urine Hyaline Casts (Auto) 1-5 /lpf Urine Epithelial Cells (Auto) >30 /lpf Urine Bacteria (Auto) NEG Urine Crystals CALCIUM OXALATE Urine Pathogenic Casts 0-3 GRANULAR CASTS /lpf White Blood Count 6.89 K/uL Red Blood Count 3.82 M/uL Hemoglobin 9.9 g/dL Hematocrit 31.3 % Mean Corpuscular Volume 81.9 fL Mean Corpuscular Hemoglobin 25.9 pg Mean Corpuscular Hemoglobin Concent 31.6 g/dl RDW Standard Deviation 42.0 fL RDW Coefficient of Variation 14.0 % Platelet Count 303 K/uL Mean Platelet Volume 9.8 fL Sodium Level 137 mmol/L Potassium Level 4.0 mmol/L Chloride Level 102 mmol/L Carbon Dioxide Level 30 mmol/L Anion Gap 5.0 mmol/L Blood Urea Nitrogen 9 mg/dl Creatinine 0.40 mg/dl Est Creatinine Clear Calc Drug Dose 80.0 ml/min Estimated GFR () 116.4 Estimated GFR (Non- 100.5 BUN/Creatinine Ratio 21.7 Random Glucose 113 mg/dl Calcium Level 8.4 mg/dl Triglycerides Level 89 mg/dl Cholesterol Level 84 mg/dl HDL Cholesterol 28 mg/dl LDL Cholesterol, Calculated 38 mg/dl VLDL Cholesterol, Calculated 18 mg/dl Cholesterol/HDL Ratio 3.0 Procalcitonin 0.14 ng/ml
[2017-04-02] MEDS: SODIUM CHLORIDE 0.9% 1000ML 1,000 ML IV SCH (12:07)
--- NOTE | 2017-04-02 12:41 | Family Medicine Progress Note ---
Progress Note Date of Service Apr 02, 2017. Subjective Pt evaluation today including: conversation w/ patient, conversation w/ family , physical exam, chart review, review of inpatient medication list Pain: No pain reported PO Intake: Tolerating PO intake Voiding: incontinence Ms. Lui states that she feels better today, with regards to her breathing. Her cough is still present. She states she feels fatigued but otherwise no complaints. No chest pain, no n/v, no abdominal pain. Constitutional: No fever, No chills Respiratory: + cough, + sputum, No wheezing Cardiovascular: No chest pain Abdomen: No pain, No nausea, No vomiting, No diarrhea, No constipation Female : + incontinence All Other Systems: Reviewed and Negative Medications Current Inpatient Medications Medications (Trade) Dose Ordered Sig/Irene Route Start Time Stop Time Status Last Admin Dose Admin Ioversol (Optiray 320) 100 ml UD PRN IV 03/31/17 21:30 04/04/17 21:29 Acetaminophen (Tylenol Tab) 650 mg Q4H PRN PO 03/31/17 22:30 04/30/17 22:29 Al Hydrox/Mg Hydrox/Simethicone (Maalox Max Susp) 15 ml Q4H PRN PO 03/31/17 22:30 04/30/17 22:29 Magnesium Hydroxide (Milk Of Magnesia Susp) 30 ml Q12H PRN PO 03/31/17 22:30 04/30/17 22:29 Ondansetron HCl (Zofran Inj) 4 mg Q6H PRN IV 03/31/17 22:30 04/30/17 22:29 Ascorbic Acid (Vitamin C Tab) 500 mg DAILY PO 04/01/17 09:00 05/01/17 08:59 04/02/17 08:48 500 MG Calcium/Vitamin D (Caltrate Plus Tab) 1 tab BID PO 04/01/17 09:00 05/01/17 08:59 04/02/17 08:48 1 TAB Fexofenadine HCl (Rosalba Tab) 180 mg DAILY PRN PO 03/31/17 22:30 04/30/17 22:29 Cefepime HCl 1000 mg/Syringe 11 ml @ 5.5 mls/min Q8H IV 04/01/17 04:00 04/08/17 03:59 04/02/17 03:38 5.5 MLS/MIN Heparin Sodium/ Dextrose 500 ml @ 21 mls/hr [id number] PRN IV 04/01/17 00:30 05/01/17 00:29 04/02/17 09:59 21 MLS/HR Clindamycin Phosphate 600 mg/ Dextrose 54 ml @ 100 mls/hr Q8H IV 04/01/17 10:00 04/08/17 09:59 04/02/17 10:48 100 MLS/HR Atorvastatin Calcium (Lipitor Tab) 40 mg HS PO 04/01/17 21:00 05/01/17 20:59 04/01/17 20:56 40 MG Ipratropium [place] (Atrovent 0.02% 0.5MG/2.5ML Neb) 0.5 mg Q6R PRN INH 04/01/17 10:30 05/01/17 10:29 04/02/17 07:15 0.5 MG Levalbuterol (Xopenex 1.25MG/ 0.5ML Neb) 1.25 mg Q6R PRN INH 04/01/17 10:30 05/01/17 10:29 04/02/17 07:15 1.25 MG Aspirin (Ecotrin Tab) 81 mg QAM PO 04/02/17 09:00 05/02/17 08:59 04/02/17 08:48 81 MG Acetylcysteine (Mucomyst 20% Inh Soln) 3 ml BID INH 04/01/17 21:00 05/01/17 20:59 04/02/17 07:15 3 ML Azithromycin 500 mg/Dextrose 255 ml @ 125 mls/hr DAILY IV 04/02/17 09:00 04/08/17 08:59 04/02/17 08:47 125 MLS/HR Sodium Chloride 1,000 ml @ 75 mls/hr [id number] IV 04/02/17 11:15 05/02/17 11:14 Midodrine (Proamatine Tab) 2.5 mg TID@08,12,17 PO 04/02/17 12:00 05/02/17 11:59 Objective Vital Signs Date Time Temp Pulse Resp B/P (MAP) Pulse Ox O2 Delivery O2 Flow Rate FiO2 04/02/17 07:57 37.0 96 20 101/57 (72) 95 Nasal Cannula 3.0 04/02/17 07:15 86 18 99 Nasal Cannula 3.0 04/02/17 04:00 98 Nasal Cannula 3.0 04/02/17 03:40 36.8 88 18 85/50 (62) 100 Nasal Cannula 3.0 04/01/17 23:59 98 Nasal Cannula 4.0 04/01/17 22:02 36.8 91 20 96/61 (73) 99 Nasal Cannula 4.0 04/01/17 20:00 98 Nasal Cannula 4.0 04/01/17 19:39 37.5 93 18 89/54 (66) 98 Nasal Cannula 4.0 04/01/17 16:02 37.1 99 16 89/56 (67) 99 Nasal Cannula 3.0 04/01/17 16:00 97 Nasal Cannula 3.0 Physical Exam General Appearance: WD/WN, no apparent distress Respiratory/Chest: chest non-tender, no respiratory distress, no accessory muscle use, + decreased breath sounds, + pertinent finding (rhonchi at left lung base) Cardiovascular: regular rate, rhythm, no edema, no gallop, no JVD, no murmur Abdomen: normal bowel sounds, non tender, soft, no organomegaly, no pulsatile mass Laboratory Results Last 24 Hours Test 04/01/17 12:45 04/01/17 13:58 04/01/17 21:13 04/02/17 07:38 Activated Partial Thromboplast Time 47.8 SECONDS 46.7 SECONDS Partial Thromboplastin Ratio 1.8 1.8 Troponin I 3.330 ng/ml Urine Color DK YELLOW Urine Appearance TURBID Urine pH 5.5 Urine Specific [place] 1.026 Urine Protein NEG Urine Glucose (UA) NEG Urine Ketones NEG Urine Occult Blood TRACE Urine Nitrite NEG Urine Bilirubin NEG Urine Urobilinogen NEG Urine Leukocyte Esterase SMALL Urine WBC (Auto) 1-5 /hpf Urine RBC (Auto) 10-30 /hpf Urine Hyaline Casts (Auto) 1-5 /lpf Urine Epithelial Cells (Auto) >30 /lpf Urine Bacteria (Auto) NEG Urine Crystals CALCIUM OXALATE Urine Pathogenic Casts 0-3 GRANULAR CASTS /lpf White Blood Count 6.89 K/uL Red Blood Count 3.82 M/uL Hemoglobin 9.9 g/dL Hematocrit 31.3 % Mean Corpuscular Volume 81.9 fL Mean Corpuscular Hemoglobin 25.9 pg Mean Corpuscular Hemoglobin Concent 31.6 g/dl RDW Standard Deviation 42.0 fL RDW Coefficient of Variation 14.0 % Platelet Count 303 K/uL Mean Platelet Volume 9.8 fL Sodium Level 137 mmol/L Potassium Level 4.0 mmol/L Chloride Level 102 mmol/L Carbon Dioxide Level 30 mmol/L Anion Gap 5.0 mmol/L Blood Urea Nitrogen 9 mg/dl Creatinine 0.40 mg/dl Est Creatinine Clear Calc Drug Dose 80.0 ml/min Estimated GFR () 116.4 Estimated GFR (Non- 100.5 BUN/Creatinine Ratio 21.7 Random Glucose 113 mg/dl Calcium Level 8.4 mg/dl Triglycerides Level 89 mg/dl Cholesterol Level 84 mg/dl HDL Cholesterol 28 mg/dl LDL Cholesterol, Calculated 38 mg/dl VLDL Cholesterol, Calculated 18 mg/dl Cholesterol/HDL Ratio 3.0 Procalcitonin 0.14 ng/ml Assessment and Plan Ms. Lui is a 77 year old female with possible chronic aspiration, likely from previous stroke and scoliosis, with persistent LLL consolidation Septic on arrival secondary to aspiration pneumonia - hypoxemic on arrival - Continue cefepime and clindamycin for anaerobe coverage - thank you to pulmonary for consult: - continue azithromycin for atypical coverage - pro-calcitonin 0.14 - bronch not warranted at this time given cardiac hx - chest PT vibration vest and mucomyst to help with expectoration - Xopenex q6hr prn for shortness of breath - continue oxygen via nasal cannula - currently on 3L - sputum culture showed heavy normal li - bcx results negative - Speech eval & video swallow test showed silent aspiration of thin and nectar thick liquids - discussed home management with granddaughter and will provide a list of recommended foods/consistencies - Tylenol prn for fever Prior STEMI - thank you to Dr. Curry for input - EKG - ST elevation in leads V3-V6 - ECHO - "extensive prior LAD infarct with an ejection fraction in the range of 35%-40% with hypokinesis of the mid to distal anterior septum, mid to distal septum, mid to distal anterior wall apex and inferior apex. They appear thin and akinetic, suggesting a prior heart attack." - recommended medical therapy for secondary prevention --> continue heparin drip and will d/c tomorrow AM --> continue 81mg of aspirin daily --> will try 12.5 of metoprolol if BP allows (currently running low so will hold off for now) --> continue 40mg of atorvastatin - but will check fasting lipid panel to determine dosage requirements --> ?plavix - risk of hemoptysis, will have to discuss with family Hypotension - 75mls/hr of NS as BP was low (85/56) - will try 2.5mg of midodrine TID which may also help with urinary incontinence Urinary Incontinence - díaz catheter placed Allergies - continue fexofenadine Anemia - hemoglobin 10 - seems to be around her baseline - MCV wnl, likely anemia of chronic disease Code status: Full. If incapacitated, her POA is her son Pravin who is a innovations paraprofessional in [place]. Dispo: Remains on telemetry, PT/OT evals in place. Discussed with patient's granddaughter - she states she would like to keep Ms. Lui at home but will look into getting home help. VTE: Heparin drip I agree with resident assessment and plan and have seen and examined pt myself Resting comfortably in bed Noted hypotension Labs reviewed Presents with acute STEMI Medical management per cards recs Check fasting lipid panel Appreciate pulm recs Diet per therapist - honey nectar thick, poor nutrition Family updated at bedside Resident Tracking Resident Involvement: Resident Care Provided Care Provided: Adult Hospital Medicine
[2017-04-02] MEDS: MIDODRINE 2.5 MG TAB PO SCH ×2 (13:26→17:48)
--- NOTE | 2017-04-02 14:25 | Medical Student: [facility] ---
Med Student Progress Note Date of Service Apr 02, 2017. Subjective Pt evaluation today including: conversation w/ patient, conversation w/ family , physical exam, chart review, lab review Pain: no pain PO Intake: yes, eager to eat, eating well Voiding: incontinence Patient states that she is doing well today. She says she is still coughing often and there has been no change in her large amount of sputum production. She did say that she is feeling a bit better. I asked if she had any changes to her breathing or need for air and she denied changes. She said she still has transient shortness of breath, she was not able to pinpoint if it was associated with her coughing fits or not. She said she slept well through the night. She has a good appetite today. Review of Systems Constitutional: No fever, No chills, No sweats Respiratory: + cough, + sputum, + shortness of breath, No dyspnea at rest, No hemoptysis Cardiac: No chest pain, No orthopnea, No edema, No claudication Abdomen: No pain, No nausea, No vomiting, No diarrhea, No constipation Neurologic: No memory loss, No numbness/tingling Skin: No rash, No itch Objective Vital Signs Date Time Temp Pulse Resp B/P (MAP) Pulse Ox O2 Delivery O2 Flow Rate FiO2 04/02/17 12:20 36.6 92 20 101/61 (74) 100 Nasal Cannula 3.0 04/02/17 08:00 95 Nasal Cannula 3.0 04/02/17 07:57 37.0 96 20 101/57 (72) 95 Nasal Cannula 3.0 04/02/17 07:15 86 18 99 Nasal Cannula 3.0 04/02/17 04:00 98 Nasal Cannula 3.0 04/02/17 03:40 36.8 88 18 85/50 (62) 100 Nasal Cannula 3.0 04/01/17 23:59 98 Nasal Cannula 4.0 04/01/17 22:02 36.8 91 20 96/61 (73) 99 Nasal Cannula 4.0 04/01/17 20:00 98 Nasal Cannula 4.0 04/01/17 19:39 37.5 93 18 89/54 (66) 98 Nasal Cannula 4.0 04/01/17 16:02 37.1 99 16 89/56 (67) 99 Nasal Cannula 3.0 04/01/17 16:00 97 Nasal Cannula 3.0 Physical Exam General Appearance: + mild distress, + cachetic Neck: supple, no JVD, trachea midline, + pertinent finding (appreciated suspected burits during exam; ddx bruits > murmur > breath sounds (asked patient to hold breath)) Respiratory/Chest: chest non-tender, lungs clear, no respiratory distress, no accessory muscle use, + decreased breath sounds Cardiovascular: regular rate, rhythm, no edema, no JVD Abdomen: non tender, soft, no organomegaly, no pulsatile mass Extremities: normal inspection, no pedal edema, no calf tenderness, + pertinent finding (pallor to lower extremities, very dry/flakey skin on feet and toes, could not appreciate capillary refill, feet warm to touch) Neurologic/Psychiatric: alert, normal mood/affect, oriented x 3 Skin: normal color (feet were quite pale, was told by patient and family that this was her normal color), warm/dry (dry flaking skin on feet/toes), no rash Laboratory Results Last 24 Hours Test 04/01/17 21:13 04/02/17 07:38 Urine Color DK YELLOW Urine Appearance TURBID Urine pH 5.5 Urine Specific [place] 1.026 Urine Protein NEG Urine Glucose (UA) NEG Urine Ketones NEG Urine Occult Blood TRACE Urine Nitrite NEG Urine Bilirubin NEG Urine Urobilinogen NEG Urine Leukocyte Esterase SMALL Urine WBC (Auto) 1-5 /hpf Urine RBC (Auto) 10-30 /hpf Urine Hyaline Casts (Auto) 1-5 /lpf Urine Epithelial Cells (Auto) >30 /lpf Urine Bacteria (Auto) NEG Urine Crystals CALCIUM OXALATE Urine Pathogenic Casts 0-3 GRANULAR CASTS /lpf White Blood Count 6.89 K/uL Red Blood Count 3.82 M/uL Hemoglobin 9.9 g/dL Hematocrit 31.3 % Mean Corpuscular Volume 81.9 fL Mean Corpuscular Hemoglobin 25.9 pg Mean Corpuscular Hemoglobin Concent 31.6 g/dl RDW Standard Deviation 42.0 fL RDW Coefficient of Variation 14.0 % Platelet Count 303 K/uL Mean Platelet Volume 9.8 fL Activated Partial Thromboplast Time 46.7 SECONDS Partial Thromboplastin Ratio 1.8 Sodium Level 137 mmol/L Potassium Level 4.0 mmol/L Chloride Level 102 mmol/L Carbon Dioxide Level 30 mmol/L Anion Gap 5.0 mmol/L Blood Urea Nitrogen 9 mg/dl Creatinine 0.40 mg/dl Est Creatinine Clear Calc Drug Dose 80.0 ml/min Estimated GFR () 116.4 Estimated GFR (Non- 100.5 BUN/Creatinine Ratio 21.7 Random Glucose 113 mg/dl Calcium Level 8.4 mg/dl Triglycerides Level 89 mg/dl Cholesterol Level 84 mg/dl HDL Cholesterol 28 mg/dl LDL Cholesterol, Calculated 38 mg/dl VLDL Cholesterol, Calculated 18 mg/dl Cholesterol/HDL Ratio 3.0 Procalcitonin 0.14 ng/ml Date/Time Source Procedure Growth Status 03/31/17 20:31 Blood Blood Culture - Preliminary NO GROWTH TO DATE. Resulted 03/31/17 20:10 Blood Blood Culture - Preliminary NO GROWTH TO DATE. Resulted 03/31/17 20:15 Sputum Expectorated Sputum Gram Stain - Final Complete 03/31/17 20:15 Sputum Expectorated Sputum Sputum Culture - Final HEAVY NORMAL LI Complete Assessment and Plan Assessment and Plan: Assessment and Plan: Aspiration Pneumonia (new plus failure of outpatient treatment prior) + Sepsis ----[id number]- -[id number]- Current antibiotic regimen of cefepime, clindamycin (anarobes) and azithromycin (atypicals) -CXR from ED with LLL consolidation noted -obtain speech/language eval. for future diet recommendations, obtain swallowing study - swallowing study showed silent aspiration to thin and think liquids, no aspiration of pudding - educated patient and family about this -Pulm consult for bronchoscopy, their recommendations of not doing it due to -[id number]- STEMI are appreciated -Sputum cultures obtained - culture grew heavy amounts of normal li -CBC evaluated - anemia noted, patient is stable but this will be watched - Hgb still trending downward, with new alberto of 9.9 from blood day today (04/02/17) will continue to monitor this and correlate with patient's clinical symptoms - Lactic acid 1.1 - fell back to normal range yesterday 04/01/17 recent -[id number]- STEMI -Cardiology consult -trend troponin and CK-MB -ECHO results appreciated -EKG with repeat EKG results notable for changes -ST segment elevation in leads V3-V6 -Heparin drip Hypotensive Blood pressures over last several days -start 2.5mg midodrine three times daily -IV fluids - normal saline at 75mL/hr Scoliosis -Educated about effect of condition on risk for aspiration History of stroke -some left sided hemiparesis due to this -educated about effect of condition on risk for aspiration DVT prophylaxis -SCDs Patient is full code status
[2017-04-02 17:43] LABS: PARTIAL THROMBOPLASTIN RATIO 2.2
[2017-04-02] MEDS: ATORVASTATIN 40 MG TAB PO SCH (21:16)
[2017-04-03] VITALS (7 sets, daily range): BP systolic 95–119; BP diastolic 47–72; PULSE 81–108; TEMP 36.9–37.7; O2SAT 92–98
[2017-04-03] MEDS: SODIUM CHLORIDE 0.9% 1000ML 1,000 ML IV SCH ×2 (00:50→14:45)
[2017-04-03] MEDS: CLINDAMYCIN IV 600 MG in DEXTROSE 5% 50ML 50 ML IV SCH ×3 (02:40→18:31)
[2017-04-03] MEDS: HEPARIN 25,000 UNIT/500ML D5W 500 ML IV PRN (03:02)
[2017-04-03] MEDS: CEFEPIME IV 1,000 MG in SYRINGE 0 ML IV SCH (04:16)
[2017-04-03] MEDS: IPRATROPIUM BROMIDE NEB SOLN 0.02% 2.5 ML VIAL INH PRN ×2 (07:08→19:38)
[2017-04-03] MEDS: LEVALBUTEROL 1.25MG/0.5ML NEB INH PRN ×2 (07:08→19:38)
[2017-04-03] MEDS: ACETYLCYSTEINE 20% INHAL SOLN ***DISPENSED BY RESP. INH SCH ×2 (07:09→19:38)
[2017-04-03 07:37] LABS: HEMATOCRIT 29.2 % (37-47); MEAN CORPUSCULAR HEMOGLOBIN 25.3 pg (25-34); MEAN CORPUSCULAR HGB CONC 30.5 g/dl (32-36); MEAN PLATELET VOLUME 9.3 fL (7.4-10.4); PLATELET COUNT 245 K/uL (130-400); RED BLOOD COUNT 3.52 M/uL (4.2-5.4); WHITE BLOOD COUNT 7.46 K/uL (4.8-10.8)
[2017-04-03 08:15] LABS: BUN/CREATININE RATIO 18.8 (10-20); CALCIUM 7.8 mg/dl (8.5-10.1); CREATININE 0.37 mg/dl (0.60-1.20); POTASSIUM 3.7 mmol/L (3.5-5.1)
[2017-04-03] MEDS: ASCORBIC ACID 500 MG TAB PO SCH (08:55)
[2017-04-03] MEDS: ASPIRIN 81 MG ECTAB PO SCH (08:55)
[2017-04-03] MEDS: MIDODRINE 2.5 MG TAB PO SCH ×3 (08:55→18:31)
[2017-04-03 09:07] LABS: PARTIAL THROMBOPLASTIN RATIO 3.4
[2017-04-03] MEDS: METOPROLOL TARTRATE 25 MG TAB PO SCH ×2 (09:37→10:00)
[2017-04-03] MEDS: FEXOFENADINE HCL 180 MG TAB PO PRN (09:38)
[2017-04-03] MEDS: CALCIUM 600MG + VIT D 400 IU TAB PO SCH ×2 (09:38→20:41)
[2017-04-03] MEDS: AZITHROMYCIN IV 500 MG in DEXTROSE 5% 250ML 250 ML IV SCH (09:42)
--- NOTE | 2017-04-03 11:03 | Family Medicine Progress Note ---
Progress Note Date of Service Apr 03, 2017. Subjective Pt evaluation today including: conversation w/ patient, conversation w/ family , physical exam Pain: No pain reported PO Intake: Tolerating PO intake Voiding: díaz catheter in place Ms. Lui states she feels alright today, slightly better than yesterday. Her breathing has improved. She remains with the cough, productive of sputum. No change in sputum color. She denies chest pain and abdominal pain. Her granddaughter states she noticed Ms. Lui was feeling more antsy, with a bit more energy, much improved from when she initially presented to the hospital but not quite back at baseline yet. Constitutional: No fever, No chills, No sweats Respiratory: + cough, + sputum, No wheezing Cardiovascular: No chest pain, No edema Abdomen: No pain, No nausea, No vomiting Female : + incontinence All Other Systems: Reviewed and Negative Medications Current Inpatient Medications Medications (Trade) Dose Ordered Sig/Irene Route Start Time Stop Time Status Last Admin Dose Admin Ioversol (Optiray 320) 100 ml UD PRN IV 03/31/17 21:30 04/04/17 21:29 Acetaminophen (Tylenol Tab) 650 mg Q4H PRN PO 03/31/17 22:30 04/30/17 22:29 Al Hydrox/Mg Hydrox/Simethicone (Maalox Max Susp) 15 ml Q4H PRN PO 03/31/17 22:30 04/30/17 22:29 Magnesium Hydroxide (Milk Of Magnesia Susp) 30 ml Q12H PRN PO 03/31/17 22:30 04/30/17 22:29 Ondansetron HCl (Zofran Inj) 4 mg Q6H PRN IV 03/31/17 22:30 04/30/17 22:29 Ascorbic Acid (Vitamin C Tab) 500 mg DAILY PO 04/01/17 09:00 05/01/17 08:59 04/03/17 08:55 500 MG Calcium/Vitamin D (Caltrate Plus Tab) 1 tab BID PO 04/01/17 09:00 05/01/17 08:59 04/03/17 09:38 1 TAB Fexofenadine HCl (Rosalba Tab) 180 mg DAILY PRN PO 03/31/17 22:30 04/30/17 22:29 04/03/17 09:38 180 MG Clindamycin Phosphate 600 mg/ Dextrose 54 ml @ 100 mls/hr Q8H IV 04/01/17 10:00 04/08/17 09:59 04/03/17 02:40 100 MLS/HR Ipratropium [place] (Atrovent 0.02% 0.5MG/2.5ML Neb) 0.5 mg Q6R PRN INH 04/01/17 10:30 05/01/17 10:29 04/03/17 07:08 0.5 MG Levalbuterol (Xopenex 1.25MG/ 0.5ML Neb) 1.25 mg Q6R PRN INH 04/01/17 10:30 05/01/17 10:29 04/03/17 07:08 1.25 MG Aspirin (Ecotrin Tab) 81 mg QAM PO 04/02/17 09:00 05/02/17 08:59 04/03/17 08:55 81 MG Acetylcysteine (Mucomyst 20% Inh Soln) 3 ml BID INH 04/01/17 21:00 05/01/17 20:59 04/03/17 07:09 3 ML Azithromycin 500 mg/Dextrose 255 ml @ 125 mls/hr DAILY IV 04/02/17 09:00 04/08/17 08:59 04/03/17 09:42 125 MLS/HR Sodium Chloride 1,000 ml @ 75 mls/hr [id number] IV 04/02/17 11:15 05/02/17 11:14 04/03/17 00:50 75 MLS/HR Midodrine (Proamatine Tab) 2.5 mg TID@08,, PO 04/02/17 12:00 05/02/17 11:59 04/03/17 08:55 2.5 MG Metoprolol Tartrate (Lopressor Tab) 12.5 mg QAM PO 04/03/17 09:00 05/03/17 08:59 Atorvastatin Calcium (Lipitor Tab) 20 mg HS PO 04/03/17 21:00 05/01/17 20:59 UNV Heparin Sodium (Porcine) (Heparin Sq 5000 Unit/0.5ml) 5,000 unit Q8 SQ 04/03/17 14:00 05/03/17 13:59 UNV Objective Vital Signs Date Time Temp Pulse Resp B/P (MAP) Pulse Ox O2 Delivery O2 Flow Rate FiO2 04/03/17 07:42 37.6 108 20 98/47 (64) 97 Nasal Cannula 3.5 04/03/17 07:13 94 18 98 Nasal Cannula 3.0 04/03/17 04:00 Nasal Cannula 3.0 04/03/17 03:35 37.3 98 24 95/61 (72) 96 Nasal Cannula 3.5 04/03/17 00:00 Nasal Cannula 3.0 04/02/17 23:24 37.2 101 17 97/61 (73) 96 Nasal Cannula 3.5 04/02/17 20:00 Nasal Cannula 3.0 04/02/17 19:45 97 18 98 Nasal Cannula 3.0 04/02/17 19:34 36.7 16 109/71 (84) 97 Nasal Cannula 2.5 04/02/17 16:00 Nasal Cannula 3.0 04/02/17 15:55 37.1 94 16 98/61 (73) 100 Nasal Cannula 2.5 04/02/17 12:20 36.6 92 20 101/61 (74) 100 Nasal Cannula 3.0 04/02/17 12:00 100 Nasal Cannula 3.0 Physical Exam General Appearance: WD/WN, no apparent distress Respiratory/Chest: chest non-tender, no respiratory distress, no accessory muscle use, + decreased breath sounds, + crackles (left lower lung) Cardiovascular: regular rate, rhythm, no edema, no gallop, no JVD, no murmur Abdomen: normal bowel sounds, non tender, soft, no organomegaly, no pulsatile mass Laboratory Results Last 24 Hours Test 04/02/17 17:10 04/03/17 07:22 04/03/17 08:31 Activated Partial Thromboplast Time 57.8 SECONDS 89.6 SECONDS Partial Thromboplastin Ratio 2.2 3.4 White Blood Count 7.46 K/uL Red Blood Count 3.52 M/uL Hemoglobin 8.9 g/dL Hematocrit 29.2 % Mean Corpuscular Volume 83.0 fL Mean Corpuscular Hemoglobin 25.3 pg Mean Corpuscular Hemoglobin Concent 30.5 g/dl RDW Standard Deviation 42.6 fL RDW Coefficient of Variation 14.0 % Platelet Count 245 K/uL Mean Platelet Volume 9.3 fL Sodium Level 140 mmol/L Potassium Level 3.7 mmol/L Chloride Level 105 mmol/L Carbon Dioxide Level 30 mmol/L Anion Gap 5.0 mmol/L Blood Urea Nitrogen 7 mg/dl Creatinine 0.37 mg/dl Est Creatinine Clear Calc Drug Dose 96.1 ml/min Estimated GFR () 119.5 Estimated GFR (Non- 103.1 BUN/Creatinine Ratio 18.8 Random Glucose 110 mg/dl Calcium Level 7.8 mg/dl Albumin 1.5 gm/dl Assessment and Plan Ms. Lui is a 77 year old female with possible chronic aspiration, likely from previous stroke and scoliosis, with persistent LLL consolidation Septic on arrival secondary to aspiration pneumonia - hypoxemic on arrival - d/c cefepime as adequate cover with clindamycin and azithromycin - thank you to pulmonary for consult: - pro-calcitonin 0.14 - bronch not warranted at this time given cardiac hx - chest PT vibration vest and mucomyst to help with expectoration - Xopenex q6hr prn for shortness of breath - continue oxygen via nasal cannula - currently on 3L - will try 2 step tomorrow , and depending on how she does, may need to be discharged on home oxygen - sputum culture showed heavy normal li - bcx results negative - Speech eval & video swallow test showed silent aspiration of thin and nectar thick liquids - discussed home management with granddaughter and will provide a list of recommended foods/consistencies - Tylenol prn for fever - albumin 1.5, will monitor. Will hopefully improve with treatment of pneumonia & adequate nutrition in hospital Prior STEMI - thank you to Dr. Curry for input - EKG - ST elevation in leads V3-V6 - ECHO - "extensive prior LAD infarct with an ejection fraction in the range of 35%-40% with hypokinesis of the mid to distal anterior septum, mid to distal septum, mid to distal anterior wall apex and inferior apex. They appear thin and akinetic, suggesting a prior heart attack." - recommended medical therapy for secondary prevention --> d/c heparin drip and start DVT prophylaxis --> continue 81mg of aspirin daily --> will try 12.5 of metoprolol if BP allows (currently running low so will hold off for now) --> ?plavix - risk of hemoptysis, will discuss on d/c - decreased atorvastatin from 40mg to 20mg given her total cholesterol was 84, triglycerides 89 and LDL 28 Hypotension - continue 75mls/hr of NS - continue 2.5mg of midodrine TID which may also help with urinary incontinence - BP improving from 85/50 systolic to 104/60 systolic, will continue to monitor Urinary Incontinence - díaz catheter in place Allergies - continue fexofenadine Anemia - hemoglobin 8.9, decreased from 10 on arrival which is her baseline - MCV wnl, likely anemia of chronic disease, will continue to monitor Code status: Full. If incapacitated, her POA is her son Pravin who is a wire tester in [place]. Discussed this with family and they state they understand what it means for her to be a full code Dispo: Remains on telemetry, PT/OT evals in place. Discussed with patient's granddaughter - she states she would like to keep Ms. Lui at home but will look into getting home help. VTE: 5000 units heparin SQ q8h Resident Tracking Resident Involvement: Resident Care Provided Care Provided: Adult Hospital Medicine
[2017-04-03] MEDS: HEPARIN SOD 5000 UNIT/0.5 ML CARP SQ SCH ×2 (14:44→21:15)
[2017-04-03] MEDS ORDERED: ATORVASTATIN 20 MG TAB PO SCH (21:00)
[2017-04-03] MEDS ORDERED: ACETAMINOPHEN SOLN 650MG/20.3 ML UDC PO PRN (23:45)
[2017-04-04] MEDS: CLINDAMYCIN IV 600 MG in DEXTROSE 5% 50ML 50 ML IV SCH (02:00)
[2017-04-04] MEDS: SODIUM CHLORIDE 0.9% 1000ML 1,000 ML IV SCH (03:15)
[2017-04-04 04:04] VITALS: BP 90/55; PULSE 89; TEMP 36.9; O2SAT 91
[2017-04-04] MEDS: HEPARIN SOD 5000 UNIT/0.5 ML CARP SQ SCH ×2 (06:00→14:00)
[2017-04-04 06:59] LABS: HEMATOCRIT 28.9 % (37-47); MEAN CELL VOLUME 82.1 fL (80-100); MEAN CORPUSCULAR HEMOGLOBIN 25.3 pg (25-34); MEAN CORPUSCULAR HGB CONC 30.8 g/dl (32-36); MEAN PLATELET VOLUME 9.4 fL (7.4-10.4); PLATELET COUNT 266 K/uL (130-400); RED BLOOD COUNT 3.52 M/uL (4.2-5.4); WHITE BLOOD COUNT 9.17 K/uL (4.8-10.8)
[2017-04-04] MEDS: LEVALBUTEROL 1.25MG/0.5ML NEB INH PRN (07:05)
[2017-04-04] MEDS: ACETYLCYSTEINE 20% INHAL SOLN ***DISPENSED BY RESP. INH SCH (07:05)
[2017-04-04] MEDS: IPRATROPIUM BROMIDE NEB SOLN 0.02% 2.5 ML VIAL INH PRN (07:05)
[2017-04-04 07:06] LABS: PARTIAL THROMBOPLASTIN RATIO 1.3
[2017-04-04 07:09] VITALS: PULSE 88; O2SAT 92
[2017-04-04 07:35] LABS: BUN/CREATININE RATIO 19.8 (10-20); CALCIUM 8.4 mg/dl (8.5-10.1); CREATININE 0.37 mg/dl (0.60-1.20); POTASSIUM 3.9 mmol/L (3.5-5.1)
[2017-04-04 07:47] VITALS: BP 119/73; PULSE 98; TEMP 36.6; O2SAT 94
[2017-04-04] MEDS: METOPROLOL TARTRATE 25 MG TAB PO SCH (09:15)
[2017-04-04] MEDS: ASCORBIC ACID 500 MG TAB PO SCH (09:15)
[2017-04-04] MEDS: ASPIRIN 81 MG ECTAB PO SCH (09:15)
[2017-04-04] MEDS: FEXOFENADINE HCL 180 MG TAB PO PRN (09:15)
[2017-04-04] MEDS: MIDODRINE 2.5 MG TAB PO SCH ×2 (09:16→13:01)
[2017-04-04] MEDS: CALCIUM 600MG + VIT D 400 IU TAB PO SCH (09:16)
[2017-04-04 11:31] VITALS: BP 113/57; PULSE 93; TEMP 36.6; O2SAT 95
[2017-04-04] MEDS ORDERED: CLINDAMYCIN HCL 150 MG CAP PO SCH (12:00)
[2017-04-04] MEDS ORDERED: AZITHROMYCIN 250 MG TAB PO SCH (12:00)
[2017-04-04] MEDS ORDERED: AZIT-57 PO (13:30)
[2017-04-04] MEDS ORDERED: CLC150 PO (13:30)
[2017-04-04] MEDS ORDERED: LPT20 PO (13:30)
[2017-04-04] MEDS ORDERED: PRMT25 PO (13:30)
[2017-04-04] MEDS ORDERED: LPR25 PO (13:30)
[2017-04-04] MEDS ORDERED: XPNINS1255 INH (13:52)
--- NOTE | 2017-04-04 13:58 | Discharge Instructions ---
Discharge Instructions Date of Service Apr 04, 2017. Admission Reason for Admission: Failure Of Op Treatment, Nstemi, Pneumonia Discharge Discharge Diagnosis / Problem: Pneumonia Discharge Goals Goal(s): Decrease discomfort, Improve function, Improve disease control, Improve nutritional status Activity Recommendations Activity Limitations: resume your previous activity . Instructions / Follow-Up Instructions / Follow-Up You came to [facility] due to pneumonia that occurred following aspiration of food. Below are the medical problems you were treated for: 1) Pneumonia: We treated you with 3 different antibiotics and will be discharging you home on two antibiotics. The first one is azithromycin, which you need to take once a day for the next 2 days. The other one is called clindamycin and that needs to be taken four times a day for the next 7 days. You were also seen by a lung doctor who felt that you did not need a bronchoscopy at this time, because of the problems with your heart, but that you should follow up with them in clinic. You can also use your nebulizer as instructed to help with your breathing. 2) Aspiration: you are at risk for inhaling food into your lungs when you eat. Based on your swallow test, the speech therapist recommended: 1. Regular diet with HONEY THICK LIQUIDS; NO MIXED CONSISTENCIES 2. Aspiration precautions: FULLY UPRIGHT for oral intake with head repositioned to as close to midline as possible (use wedges/positioning devices as needed); use double swallows with all consistencies; alternate solids and liquids; no straws 3. Consider follow up with speech and language services via home health if needed 4. Consider follow up with therapeutic massage therapist regarding neck stiffness 5. Consider follow up with Occupational Therapy via Home Health to address positioning issues 5. Clean all surfaces of mouth with toothbrush and toothpaste PRIOR TO oral intake in the morning, after meals, and prior to going to bed for the night. (use suction toothbrush system as needed) 3) Heart Problems: Your troponin (the enzyme that is released by the heart when damaged) was elevated, and the ultrasound of your heart showed some abnormalities that suggested a prior heart attack that may have worsened due to your recent illness. You were seen by a cardiology who recommended blood thinners while you were in the hospital. He also recommends you continue with the daily aspirin and blood pressure lowering medication (12.5mg of metoprolol) , as well as atorvastatin (cholesterol lowering medication) to help prevent another heart attack. You can continue to take your other home medications as prescribed and please follow up with your primary care doctor within 1 week. If you start to feel short of breath, have a high fever or chills, or your cough worsens, please seek medical attention. Current Hospital Diet Patient's current hospital diet: AHA Diet (Heart Healthy) Discharge Diet Recommended Diet: AHA Diet (Heart Healthy) Liquid Consistency: Honey Thick Pending Studies Studies pending at discharge: no Laboratory Results Lipid Panel Test 04/02/17 07:38 Range/Units Triglycerides Level 89 0-150 mg/dl Cholesterol Level 84 0-200 mg/dl HDL Cholesterol 28 mg/dl Cholesterol/HDL Ratio 3.0 LDL Cholesterol, Calculated 38 mg/dl Medical Emergencies . Who to Call and When: Medical Emergencies: If at any time you feel your situation is an emergency, please call 911 immediately. . Non-Emergent Contact Non-Emergency issues call your: Primary Care Provider . . "Provider Documentation" section prepared by Rona Damico. . VTE Core Measure Inpt VTE Proph given/why not?: Unfractionated heparin SQ
[2017-04-04] MEDS ORDERED: ASPEC81 PO (14:08)
--- NOTE | 2017-04-04 14:26 | Discharge Summary ---
Discharge Summary Date of Service Apr 04, 2017. Discharge Summary Admission Date: Mar 31, 2017 at 22:26 Discharge Date: Apr 04, 2017 Discharge Disposition: Home with services Principal Diagnosis: Aspiration Pneumonia Problems/Secondary Diagnoses: 1) Aspiration risk 2) Prior NSTEMI 3) Emphysema 4) Prior stroke with residual left sided hemiparesis 5) Scoliosis Immunizations: Have You Had Influenza Vaccine: No History of Tetanus Vaccine?: Yes History of Pneumococcal: Yes Pneumococcal Date: Feb 20, 2006 History of Hepatitis B Vaccine: No Procedures: 1) CXR 2) CTA 3) Videofluoroscopic Swallow Study Consultations: 1) Pulmonology 2) Cardiology 3) Speech and Language Therapy Medication Reconciliation New Medications: Aspirin (Aspirin EC Low Dose) 81 Mg Ectab 81 MG PO QAM for 30 Days, #30 TABS 3 Refills Atorvastatin (Atorvastatin Calcium) 20 Mg Tab 20 MG PO HS for 30 Days, #30 TAB 3 Refills Azithromycin (Azithromycin) 250 Mg Tab 500 MG PO QAM for 2 Days, #4 TAB Clindamycin HCl (Clindamycin HCl) 150 Mg Cap 300 MG PO Q6 for 7 Days, #56 CAP Levalbuterol (Levalbuterol) 1.25 Mg/0.5 Ml Nebu 1.25 MG INH Q6R PRN for Shortness of Breath for 30 Days, #1 BTL Metoprolol Tartrate (Lopressor) 25 Mg Tab 12.5 MG PO QAM for 30 Days, #15 TAB 3 Refills Midodrine (Midodrine HCl) 2.5 Mg Tab 2.5 MG PO TID@08,12,17 for 30 Days, #30 TAB 3 Refills Continued Medications: Ascorbic Acid (Vitamin C) 500 Mg Tab 500 MG PO DAILY Calcium/Vitamin D (Caltrate 600 Plus *) Tab 600 MG PO BID, #60 0 Refills Fexofenadine Hcl (Rosalba *) 180 Mg Tab 180 MG PO DAILY PRN, 0 Refills Discharge Exam Ms. Lui reports she feels better today, with more energy. She states her breathing has improved, and the cough is about the same as before, productive of clear sputum. She denies chest pain, shortness of breath, nausea, vomiting, or abdominal pain. She states she would like to be discharged to spend time with her family. Review of Systems: Constitutional: No fever, No chills, No sweats Respiratory: + cough, + sputum, No wheezing, No shortness of breath Cardiovascular: No chest pain Abdomen: No pain, No nausea, No vomiting, No diarrhea Physical Exam: General Appearance: WD/WN, no apparent distress Respiratory/Chest: chest non-tender, normal breath sounds, no respiratory distress, no accessory muscle use, + decreased breath sounds, + rhonchi (left lung base) Cardiovascular: regular rate, rhythm, no edema, no gallop, no JVD, no murmur Abdomen / GI: normal bowel sounds, non tender, soft, no organomegaly, no pulsatile mass Hospital Course Ms. Lui is a 77 year old female with a history of a stroke resulting in left sided hemiparesis, scoliosis and emphysema who was admitted to [facility] due to aspiration pneumonia as well as troponin elevation. Below are the medical problems that were addressed during her visit: 1) Aspiration Pneumonia - she was hypoxemic on arrival, and was started on oxygen and IV cefepime, clindamycin and azithromycin. She will be discharged home on oral clindamycin and azithromycin. She was seen by pulmonology (Dr. Tsai) who stated that she should not have a bronchoscopy until at least 6 weeks after a cardiac event. She was therefore managed conservatively with oxygen, chest PT vibration vest, mucomyst, xopenex nebulizers and oxygen. Her blood cultures were negative but sputum cultures showed heavy normal li. 2) Aspiration risk - her videofluoroscopic test showed showed silent aspiration of thin and nectar thick liquids. This was discussed with her granddaughter who stated she would help Ms. Lui adhere to a honey thick diet to prevent further aspiration events. 3) Prior STEMI - her troponin was elevated to 4.7 in the hospital. She was seen by a club attendant (Dr. Curry) who performed an ECHO that showed "extensive prior LAD infarct with an ejection fraction in the range of 35%-40% with hypokinesis of the mid to distal anterior septum, mid to distal septum, mid to distal anterior wall apex and inferior apex. They appear thin and akinetic, suggesting a prior heart attack." He recommended medical management for secondary prevention, and she was placed on a heparin drip for 48 hours, 81mg aspirin, 12.5mg of metoprolol and 20mg of atorvastatin (given that her total cholesterol was 84, triglycerides 89 and LDL 28). We recommend she continue with the aspirin, metoprolol and atorvastatin. 3) Hypotension - she had episodes of hypotension in the hospital, for which we prescribed midodrine. She also had episodes of urinary incontinence, which may be helped by midodrine. We will discharge her on this and defer the decision to keep it as maintenance to her PCP. 4) Code status - Ms. Lui changed her code status during her hospital stay to DNR. This was discussed with both her and her family. We recommend she follow up with her PCP within one week and continue her other home medications as prescribed. Total Time Spent: Greater than 30 minutes This includes examination of the patient, discharge planning, medication reconciliation, and communication with other providers. Discharge Instructions Please refer to the electronic Patient Visit Report (Discharge Instructions) for additional information. Additional Copies To Carlos Corbett M.D.
[2017-04-04 14:47] VITALS: BP 113/57; PULSE 93; TEMP 36.6; O2SAT 95
== END 2017-04-04 16:40 | disposition home health service (06) | DRG 871 ==
LOC: C.EDB 19:29 → C.2T 22:26 → ENRESERV 22:36
PROVIDERS: ADMIT Internal Medicine; ATTEND Hospitalist
DX: A41.9 Sepsis, unspecified organism (principal); J69.0 Pneumonitis due to inhalation of food and vomit; I21.09 ST elevation (STEMI) myocardial infarction involving other coronary artery of anterior wall; I69.354 Hemiplegia and hemiparesis following cerebral infarction affecting left non-dominant side; J44.9 Chronic obstructive pulmonary disease, unspecified; D63.8 Anemia in other chronic diseases classified elsewhere; R62.7 Adult failure to thrive; R09.02 Hypoxemia; R32 Unspecified urinary incontinence

== ENCOUNTER → 2017-04-23 | Day surgery (SDC) | payer OTHER ==
[2017-04-21 14:48] VITALS: BMI 15.0
[~2017-04-23] VITALS: Ht 167.6 cm; Wt 43.2 kg
[~2017-04-23] MED LIST changes: -ALBUAER INH; -ALL180 PO; +ASPI81TA28 PO; +ATOR-22 PO; +ATROPINE SULFATE 0.1 MG/ML 5ML SYR IV PRN; -CLTP PO; +ESMOLOL HCL 10 MG/ML 10 ML VIAL ONE; +EpHEDrine SULFATE INJ 50 MG/ML AMP IV PRN; +EpHEDrine SULFATE INJ 50 MG/ML AMP ONE; +FENTANYL CITRATE INJ 50 MCG/1 ML 2 ML VIAL IV PRN; +FENTANYL CITRATE INJ 50 MCG/1 ML 2 ML VIAL ONE; +GLYCOPYRROLATE INJ 0.2 MG/ML VIAL ONE; +HYDROmorphone INJ 1 MG/ML SYR IV PRN; +LACTATED RINGER'S 1000ML 1,000 ML IV SCH; +LEVA1.258 INH; +LIDOCAINE HCL 2% 2 ML VIAL (20MG/ML) ONE; +METO25TA3 PO; +NEOSTIGMINE METHYLSULFATE 5 MG/5 ML SYR ONE; +ONDANSETRON INJ 2 MG/ML 2 ML VIAL IV PRN; +ONDANSETRON INJ 2 MG/ML 2 ML VIAL ONE; +PHENYLEPHRINE HCL INJ 10 MG/ML VIAL ONE; +PRMT25 PO; +PROPOFOL IV EMULSION 10 MG/ML 20 ML VIAL IV ONE; -RANI150T3 PO; +REMIFENTANIL 1 MG VIAL ONE; -RMR15 PO; +ROCURONIUM BROMIDE 10 MG/ML 5 ML VIAL IV ONE
--- NOTE | 2017-04-23 08:27 | History and Physical ---
History & Physical Date of Service Apr 23, 2017. History & Physical Reason for visit: Rigid bronchoscopy HPI: Patient is a 77 yo female presenting today for rigid bronchoscopy. The patient recently was admitted to [facility] and was evaluated by Dr. Tsai at the time. More recently, she was evaluated by Dr. Sosa as an outpatient on 04/09/17. The patient has history of severe scoliosis, NSTEMI, CVA s/p left hemiparesis, severe Vitamin D Deficiency, and most recently was admitted to [facility] with aspiration pneumonia. The patient is noted to have a long history of dysphagia, and she sometimes chokes on her food. Following her CVA, the patient has had recurrent episodes of pneumonia, nonproductive cough, and problems with clearing secretions. The patient does sometimes have mild LANG. She has had weight loss associated wth anorexia as well. Echo during most recently hospitalization showed LVEF of 35-40 % with grade 1 diastolic dysfunction and wall motion abnormality. Video swallow on 04/01 showed silent aspiration of thin and nectar liquids. Speech therapy recommended that her foods be thickened. She was instructed to eat fully upright with head position as close to midline as possible and to double swallow with all consistencies alternating solids and liquids. She was also instructed to not use straws. Chest CT on 03/12/17 showed LLL atelectasis secondary to fluid and/or consolidation. The lingual was note to be involved with changes in the right middle lobe and bronchus intermedius as well with multifocal airspace opacity seen throughout both lungs. Moderately enlarged mediastinal and left hilar lymphadenopathy were also noted. CTA of the chest on 03/31/17 showed progressive consolidative change of the LLL , progressive and/or interval development of bibasilar and mid lung parenchymal infiltrative changes, and mildly progressive mediastinal and hilar adenopathy. Images viewed. Allergies 1. Penicillins 2. Quinolones 3. Sulfa Drugs Current Medications: Rosalba 180 mg 1 tablet daily PRN Aspirin 81 mg daily Atorvastatin Calcium 10 mg at bedtime Caltrate 600 1500 mg Oral tablet 1 daily Levalbuterol 0.63/3ml INH Neb q. 6 h PRN Metoprolol ER 25 mg daily Midodrine 2.5 mg 1 tablet TID Vitamin C 500 mg daily Past Medical History: Recurrent pneumonia Right CVA status post left hemiparesis Previous history of C. difficile colitis Vitamin D deficiency Scoliosis Anterior DE Social History: She is a lifetime nonsmoker. No alcohol or illicit drug use. She is retired and . She lives with her granddaughters who are her primary care givers. Occupational Status: retired Physical Exam: General: Patient is awake, alert, cooperative, and in no acute distress. Well developed. Well-nourished. Skin: Normal appearance, texture, and temperature. No apparent rash or ecchymoses. HEENT: Normocephalic and atraumatic. Eyes are anicteric and non-erythematous. EOMI c PERRLA. Hearing intact and without difficulty. Nose appears normal and without drainage. Trachea midline. Thyroid appears normal, and neck is supple. Lungs: No respiratory distress. No accessory muscle use. Heart: Regular rate and rhythm. Musculoskeletal: Severe scoliosis. Neuro: Alert and oriented X3. CN II-XII grossly intact. Sensation and motor function grossly intact. Psych: Mood and affect are normal. Assessment and Plan: Hypoxemia Aspiration pneumonia Failure to thrive Left Lower lobe collapse Plan for flexible bronchoscopy, EBUS and possible rigid bronchoscopy.
[2017-04-23 10:57] VITALS: BP 138/63; PULSE 74; TEMP 36.5; O2SAT 95; Ht 167.6 cm; Wt 43.2 kg
--- NOTE | 2017-04-23 17:16 | Bronchoscopy Procedure Note ---
Bronchoscopy Procedure Note Procedure: Flexible-Bronchoscopy, EBUS, BAL-left lower lobe Consent: Obtained through the patient placed into the chart Pre-Procedural Dx: Chronic aspiration, mediastinal lymphadenopathy, left lower lobe collapse Post-Procedural Dx: Chronic aspiration Analgesia: GETA Sedation: GETA Procedure: The Olympus video bronchoscope Initially the flexible bronchoscope was used for evaluation of the airways. The ET tube was notably 2cm above the level of the shimon. Trachea: Visualized portion of the trachea was anatomically within normal limits Shimon: Anatomically within normal limits Right bronchial tree: Right mainstem bronchus: Anatomically within normal limits Right upper lobe: Anatomically within normal limits Bronchus intermedius: Anatomically within normal limits Right middle lobe: Anatomically within normal limits Right lower lobe: Anatomically within normal limits Findings: Mild mucus plugging noted throughout Left bronchial tree: Left mainstem bronchus: Anatomically within normal limits Left upper lobe: Anatomically within normal limits, completely obstructed with thick mucus secretions Lingula: Anatomically within normal limits, completely obstructed with thick mucus secretions Left lower lobe: Anatomically within normal limits, 70-80% obstructed with thick mucus secretions Findings: N thick mucus secretions throughout A flexible bronchoscope was actually passed through the oropharynx the posterior pharynx and slid anteriorly along the ET tube into the trachea. There were in notable thick whitish mucus secretions appreciated in the subglottic region. BAL: Left lower lobe EBL: None Complications: None Follow-up: PACU
--- NOTE | 2017-04-23 17:19 | Discharge Instructions ---
Discharge Instructions Date of Service Apr 23, 2017. Admission Reason for Admission: Left Lower Lobe Atelectasis/Consolidation Lung Mas Discharge Discharge Diagnosis / Problem: Chronic aspiration Discharge Goals Goal(s): Improve function, Diagnostic testing Activity Recommendations Activity Limitations: resume your previous activity . Instructions / Follow-Up Instructions / Follow-Up Follow-up with Dr. Florin Sosa in the [facility] Current Hospital Diet Patient's current hospital diet: Discharge Diet Recommended Diet: Regular Diet (I did speak to the family at length about the high likelihood of aspiration. Her diet will need to be further evaluated.) Procedures Procedures Performed: Left lower lobe Bronchial Lavage; Flexible Bronchoscopy Pending Studies Studies pending at discharge: no Laboratory Results Lipid Panel Test 04/02/17 07:38 Range/Units Triglycerides Level 89 0-150 mg/dl Cholesterol Level 84 0-200 mg/dl HDL Cholesterol 28 mg/dl Cholesterol/HDL Ratio 3.0 LDL Cholesterol, Calculated 38 mg/dl Medical Emergencies . Who to Call and When: Medical Emergencies: If at any time you feel your situation is an emergency, please call 911 immediately. . Non-Emergent Contact Non-Emergency issues call your: Sports Commentator . . "Provider Documentation" section prepared by Elmer Sam. . VTE Core Measure Inpt VTE Proph given/why not?: Treatment not indicated
--- NOTE | 2017-04-23 17:25 | Anesthesiology Progress Note ---
Anesthesia Post Op Note Date & Time Apr 23, 2017 at 17:25 Vital Signs Pain Intensity: 0 Vital Signs Past 12 Hours Date Time Temp Pulse Resp B/P (MAP) Pulse Ox O2 Delivery O2 Flow Rate FiO2 04/23/17 17:16 137/63 04/23/17 17:13 69 22 100 04/23/17 17:13 69 22 04/23/17 17:11 143/57 04/23/17 17:08 70 24 04/23/17 17:08 76 24 98 04/23/17 17:06 126/60 04/23/17 17:03 78 22 96 04/23/17 17:03 78 22 04/23/17 17:01 139/63 04/23/17 16:58 36.8 84 16 158/62 100 Nasal Cannula 2 04/23/17 16:58 84 158/62 100 04/23/17 16:58 84 04/23/17 10:57 36.5 74 18 138/63 (88) 95 Room Air Notes Mental Status: alert / awake / arousable, participated in evaluation Pt Amnestic to Procedure: Yes Nausea / Vomiting: adequately controlled Pain: adequately controlled Airway Patency, RR, SpO2: stable & adequate BP & HR: stable & adequate Hydration State: stable & adequate Anesthetic Complications: no major complications apparent
[2017-04-23 17:45] VITALS: BP 128/59; PULSE 57; TEMP 36.5; O2SAT 100
[2017-04-23 18:15] VITALS: BP 124/56; PULSE 56; O2SAT 96
[2017-04-23 18:45] VITALS: BP 124/58; PULSE 62
== END | disposition home or self-care (01) ==
LOC: C.ACU 10:15
PROVIDERS: ATTEND Internal Medicine Critical Care Medicine
DX: J69.0 Pneumonitis due to inhalation of food and vomit (principal); R59.0 Localized enlarged lymph nodes; J98.19 Other pulmonary collapse; J43.9 Emphysema, unspecified; R06.00 Dyspnea, unspecified; M41.9 Scoliosis, unspecified; I25.2 Old myocardial infarction; Z86.73 Personal history of transient ischemic attack (TIA), and cerebral infarction without residual deficits; E11.9 Type 2 diabetes mellitus without complications; Z88.0 Allergy status to penicillin; Z88.2 Allergy status to sulfonamides

== ENCOUNTER → 2017-06-19 | Outpatient (CLI) | payer OTHER ==
[~2017-06-19] MED LIST changes: -ATROPINE SULFATE 0.1 MG/ML 5ML SYR IV PRN; -ESMOLOL HCL 10 MG/ML 10 ML VIAL ONE; -EpHEDrine SULFATE INJ 50 MG/ML AMP IV PRN; -EpHEDrine SULFATE INJ 50 MG/ML AMP ONE; -FENTANYL CITRATE INJ 50 MCG/1 ML 2 ML VIAL IV PRN; -FENTANYL CITRATE INJ 50 MCG/1 ML 2 ML VIAL ONE; -GLYCOPYRROLATE INJ 0.2 MG/ML VIAL ONE; -HYDROmorphone INJ 1 MG/ML SYR IV PRN; -LACTATED RINGER'S 1000ML 1,000 ML IV SCH; -LIDOCAINE HCL 2% 2 ML VIAL (20MG/ML) ONE; -NEOSTIGMINE METHYLSULFATE 5 MG/5 ML SYR ONE; -ONDANSETRON INJ 2 MG/ML 2 ML VIAL IV PRN; -ONDANSETRON INJ 2 MG/ML 2 ML VIAL ONE; -PHENYLEPHRINE HCL INJ 10 MG/ML VIAL ONE; -PROPOFOL IV EMULSION 10 MG/ML 20 ML VIAL IV ONE; -REMIFENTANIL 1 MG VIAL ONE; -ROCURONIUM BROMIDE 10 MG/ML 5 ML VIAL IV ONE
--- NOTE | 2017-06-19 10:35 | DIAGNOSTIC IMAGING REPORT ---
CHEST 2 VIEWS ROUTINE CLINICAL HISTORY: J43.9 COPD with [id number] COMPARISON STUDY: 03/31/2017 FINDINGS: The patient is rotated. There is radiographic evidence of emphysema. There are persistent left lower lobe airspace opacities. There are small pleural effusions left greater than right. The right lung is clear. There is no failure.[ IMPRESSION: 1. Emphysema 2. Persistent left lower lobe airspace opacities suspicious for a pneumonitis 3. Small pleural effusions left greater than right Electronically signed by: Gerardo Davies M.D. 06/19/2017 10:34 AM Dictated Date/Time: 06/19/2017 10:32 AM
== END | disposition home or self-care (01) ==
LOC: C.RAD1850 10:08
PROVIDERS: ATTEND Internal Medicine Pulmonary Disease
DX: J43.9 Emphysema, unspecified (principal); J90 Pleural effusion, not elsewhere classified

== ENCOUNTER 2017-07-14 20:05 | Inpatient (IN) | payer OTHER ==
[~2017-07-14] VITALS: Ht 170.2 cm; Wt 38.9 kg
[~2017-07-14 20:05] MED LIST changes: -LEVA1.258 INH; +LEVA1.258 NEB
[2017-07-14] MEDS ORDERED: ALBUT/IPRATROP 3MG/0.5MG NEB 3 ML VIAL INH STA (20:49)
[2017-07-14 21:15] LABS: BASO % 0.3 %; BASO ABS # 0.03 K/uL (0-0.2); EOS % 0.3 %; EOS ABS # 0.03 K/uL (0-0.5); HEMOGLOBIN 13.4 g/dL (12.0-16.0); IG# 0.03 K/uL (0.00-0.02); LYMPH % 11.7 %; LYMPH ABS # 1.29 K/uL (1.2-3.4); MEAN CORPUSCULAR HEMOGLOBIN 27.1 pg (25-34); MEAN CORPUSCULAR HGB CONC 32.7 g/dl (32-36); MEAN PLATELET VOLUME 9.8 fL (7.4-10.4); MONO % 19.1 %; MONO ABS # 2.11 K/uL (0.11-0.59); NEUT % 68.3 %; NEUT ABS # 7.54 K/uL (1.4-6.5); PLATELET COUNT 405 K/uL (130-400); RED CELL DISTRIBUTION WIDTH CV 14.6 % (11.5-14.5); RED CELL DISTRIBUTION WIDTH SD 44.3 fL (36.4-46.3); WHITE BLOOD COUNT 11.03 K/uL (4.8-10.8)
--- NOTE | 2017-07-14 21:18 | DIAGNOSTIC IMAGING REPORT ---
CHEST ONE VIEW PORTABLE CLINICAL HISTORY: sob dyspnea COMPARISON STUDY: 06/19/2017 FINDINGS: Unchanged study from the prior exam. Infiltrative change left base with evidence for unchanging left basilar consolidative change. Emphysematous change throughout both hemithoraces stable. Right lung remains generally clear. IMPRESSION: Unchanging infiltrate/consolidative change left base. No significant change from the prior study of 06/19/2017. The above report was generated using voice recognition software. It may contain grammatical, syntax or spelling errors. Electronically signed by: Brett Sorensen M.D. 07/14/2017 9:17 PM Dictated Date/Time: 07/14/2017 9:15 PM
[2017-07-14 21:32] LABS: ALBUMIN 2.5 gm/dl (3.4-5.0); ALKALINE PHOSPHATASE 116 U/L (45-117); ALT/SGPT 24 U/L (12-78); AST/SGOT 27 U/L (15-37); BLOOD UREA NITROGEN 18 mg/dl (7-18); CALCIUM 9.1 mg/dl (8.5-10.1); CARBON DIOXIDE 29 mmol/L (21-32); CKMB 1.1 ng/ml (0.5-3.6); CREATININE 0.67 mg/dl (0.60-1.20); GLUCOSE 139 mg/dl (70-99); POTASSIUM 3.9 mmol/L (3.5-5.1); SODIUM 133 mmol/L (136-145); TOTAL PROTEIN 9.9 gm/dl (6.4-8.2)
[2017-07-14] MEDS ORDERED: CIPR1TAB11 PO (21:46)
[2017-07-14] MEDS ORDERED: PIPERACILLIN/TAZOBACTAM 3.375 GM/100ML D5W IV STA (22:01)
[2017-07-14] MEDS ORDERED: SODIUM CHLORIDE 0.9% 1000ML 1,000 ML IV STA (22:09)
--- NOTE | 2017-07-14 22:09 | EMERGENCY ROOM VISIT NOTE ---
History Report prepared by Carlito: Elena Oshea Under the Supervision of: Sally AraizaO. First contact with patient: 20:47 Chief Complaint: SHORTNESS OF BREATH Stated Complaint: SHORTNESS OF BREATH, HISTORY OF PNEUMONIA History of Present Illness The patient is a 77 year old female who presents to the Emergency Room with complaints of worsening shortness of breath for four days. She notes a productive cough with yellow sputum. The patient currently has pneumonia. She is currently taking antibiotics. The patient has a history of silently aspirating since March 2017. Per family, the patient does not wear at home oxygen. Per family, the patient has had pneumonia three times since March 2017. She denies any chest pain. Source of History: patient, family Onset: four days Position: other (global ) Quality: other (shortness of breath) Timing: worsening Associated Symptoms: + cough, No chest pain Review of Systems See HPI for pertinent positives & negatives. A total of 10 systems reviewed and were otherwise negative. Past Medical & Surgical Medical Problems: (1) Failure of outpatient treatment (2) History of Clostridium difficile infection (3) History of stroke (4) NSTEMI (non-ST elevated myocardial infarction) (5) Pneumonia (6) Scoliosis Family History No pertinent family history Social History Smoking Status: Former Smoker Alcohol Use: none Drug Use: none Marital Status: Housing Status: lives with family Occupation Status: retired Current/Historical Medications Scheduled Aspirin (Aspirin Ec), 81 MG PO QAM Atorvastatin (Lipitor), 20 MG PO HS Ciprofloxacin Tab (Cipro), 1 TAB PO Q12 Metoprolol Succ (Toprol Xl) (Toprol-Xl), 25 MG PO QAM Midodrine (Midodrine HCl), 2.5 MG PO TID Scheduled PRN Levalbuterol Hcl (Levalbuterol Hcl), 1.25 MG NEB Q6H PRN for SOB/Wheezing Allergies Coded Allergies: Penicillins (Verified Allergy, Mild, UNKNOWN, 04/23/17) Sulfa Antibiotics (Verified Allergy, Unknown, UNKNOWN, 04/23/17) Quinolones (Verified Adverse Reaction, Mild, UNKNOWN, 04/23/17) Physical Exam Vital Signs Date Time Temp Pulse Resp B/P (MAP) Pulse Ox O2 Delivery O2 Flow Rate FiO2 07/14/17 21:58 37.5 112 16 156/74 98 Room Air 07/14/17 21:50 119 07/14/17 21:00 100 Nasal Cannula 6.0 07/14/17 21:00 100 Nasal Cannula 4.0 07/14/17 20:38 36.8 128 28 152/66 82 Room Air Physical Exam CONSTITUTIONAL/VITAL SIGNS: Reviewed / noted above. GENERAL: Non-toxic in appearance. Cachetic appearing. INTEGUMENTARY: Warm, dry, and [place]ki. HEAD: Normocephalic. EYES: without scleral icterus or trauma. ENT/OROPHARYNX: clear and moist. LYMPHADENOPATHY/NECK: Is supple without lymphadenopathy or meningismus. RESPIRATORY: Bilateral rhonchi. Mild increased work of breathing. Tachypnea. CARDIOVASCULAR: Regular rate and rhythm. GI/ABDOMEN: Soft and nontender. No organomegaly or pulsatile mass. No rebound or guarding. Normal bowel sounds. EXTREMITIES: Warm and well perfused. BACK: No CVA tenderness. NEUROLOGICAL: Intact without focal deficits. PSYCHIATRIC: normal affect. MUSCULOSKELETAL: Normally developed with good muscle tone. Medical Decision & Procedures ER Provider Diagnostic Interpretation: Radiology results as stated below per my review and radiologist interpretation: CHEST ONE VIEW PORTABLE CLINICAL HISTORY: sob dyspnea COMPARISON STUDY: 06/19/2017 FINDINGS: Unchanged study from the prior exam. Infiltrative change left base with evidence for unchanging left basilar consolidative change. Emphysematous change throughout both hemithoraces stable. Right lung remains generally clear. IMPRESSION: Unchanging infiltrate/consolidative change left base. No significant change from the prior study of 06/19/2017. The above report was generated using voice recognition software. It may contain grammatical, syntax or spelling errors. Electronically signed by: Brett Sorensen M.D. 07/14/2017 9:17 PM Dictated Date/Time: 07/14/2017 9:15 PM Laboratory Results 07/14/17 20:55 Red Blood Count 4.94, Mean Corpuscular Volume 83.0, Mean Corpuscular Hemoglobin 27.1, Mean Corpuscular Hemoglobin Concent 32.7, Mean Platelet Volume 9.8, Neutrophils (%) (Auto) 68.3, Lymphocytes (%) (Auto) 11.7, Monocytes (%) (Auto) 19.1, Eosinophils (%) (Auto) 0.3, Basophils (%) (Auto) 0.3, Neutrophils # (Auto ) 7.54, Lymphocytes # (Auto) 1.29, Monocytes # (Auto) 2.11, Eosinophils # (Auto ) 0.03, Basophils # (Auto) 0.03 07/14/17 20:55 Test 07/14/17 20:55 07/14/17 21:25 White Blood Count 11.03 K/uL (4.8-10.8) Red Blood Count 4.94 M/uL (4.2-5.4) Hemoglobin 13.4 g/dL (12.0-16.0) Hematocrit 41.0 % (37-47) Mean Corpuscular Volume 83.0 fL (80-100) Mean Corpuscular Hemoglobin 27.1 pg (25-34) Mean Corpuscular Hemoglobin Concent 32.7 g/dl (32-36) Platelet Count 405 K/uL (130-400) Mean Platelet Volume 9.8 fL (7.4-10.4) Neutrophils (%) (Auto) 68.3 % Lymphocytes (%) (Auto) 11.7 % Monocytes (%) (Auto) 19.1 % Eosinophils (%) (Auto) 0.3 % Basophils (%) (Auto) 0.3 % Neutrophils # (Auto) 7.54 K/uL (1.4-6.5) Lymphocytes # (Auto) 1.29 K/uL (1.2-3.4) Monocytes # (Auto) 2.11 K/uL (0.11-0.59) Eosinophils # (Auto) 0.03 K/uL (0-0.5) Basophils # (Auto) 0.03 K/uL (0-0.2) RDW Standard Deviation 44.3 fL (36.4-46.3) RDW Coefficient of Variation 14.6 % (11.5-14.5) Immature Granulocyte % (Auto) 0.3 % Immature Granulocyte # (Auto) 0.03 K/uL (0.00-0.02) Anion Gap 8.0 mmol/L (3-11) Estimated GFR () 98.3 Estimated GFR (Non- 84.8 BUN/Creatinine Ratio 27.1 (10-20) Calcium Level 9.1 mg/dl (8.5-10.1) Total Bilirubin 0.4 mg/dl (0.2-1) Aspartate Amino Transf (AST/SGOT) 27 U/L (15-37) Alanine Aminotransferase (ALT/SGPT) 24 U/L (12-78) Alkaline Phosphatase 116 U/L (45-117) Total Creatine Kinase 22 U/L (26-192) Creatine Kinase MB 1.1 ng/ml (0.5-3.6) Creatine Kinase MB Ratio 5.0 (0-3.0) Troponin I < 0.015 ng/ml (0-0.045) Total Protein 9.9 gm/dl (6.4-8.2) Albumin 2.5 gm/dl (3.4-5.0) Globulin 7.4 gm/dl (2.5-4.0) Albumin/Globulin Ratio 0.3 (0.9-2) Chemistry Specimen Hemolysis Bedside Lactic Acid Venous 2.13 mmol/L (0.90-1.70) Laboratory results as stated above per my review. Medications Administered Medications (Trade) Dose Ordered Sig/Irene Route Start Time Stop Time Status Last Admin Dose Admin Albuterol/ Ipratropium (Duoneb) 3 ml NOW STAT INH 07/14/17 20:49 07/14/17 20:52 DC 07/14/17 20:59 3 ML ECG Per My Interpretation Indication: SOB/dyspnea Rate (beats per minute): 134 Rhythm: sinus tachycardia Findings: no ectopy, other (Low voltage. No ST elevation.) ED Course 2056: Previous medical records were reviewed. The patient was evaluated in room C9. A complete history and physical examination was performed. 2048: Ordered DuoNeb 3 ml INH 2152: I spoke with Dr. Rajan, [facility] [place] Resident for Dr. Ba, hospitalist. We discussed the patient's case. The patient will be evaluated by the [facility] for further management. 2200: Ordered Zosyn 3.375 gm IV 2214: Ordered Levofloxacin 500 mg IV Medical Decision Differentials considered include acute myocardial infarction, acute coronary syndrome, myocarditis, pericarditis, pericardial effusions /tamponade, esophageal perforation, pulmonary embolism, pneumonia, pneumothorax, cardiomyopathy, congestive heart, anemia, and COPD/asthma exacerbation. This is a 77-year-old female who presents to the ED with a chief complaint of shortness of breath. The patient reports a cough productive for yellow sputum. Her symptoms have been ongoing for the past 3-4 days. She saw her PCP on who started an antibiotic on her. She does not use home oxygen. She may have a history of silent aspiration according to the daughter. Heart rate was 128 and oxygen saturations were 82% on room air. Chest x-ray reveals a left base infiltrate. Check CBC is unremarkable, [id number] lactate was slightly elevated at 2.1. Troponin is negative. EKG shows a sinus tach. The patient was treated with IV Levaquin. She was given a DuoNeb treatment and some IV fluids. The patient will be seen by the hospitalist service for further inpatient evaluation and care. Medication Reconcilliation Current Medication List: was personally reviewed by me Blood Pressure Screening Patient's blood pressure: Elevated blood pressure Blood pressure disposition: Referred to PCP (inpatient) Consults Time Called: 2145 [facility] Return[facility] Call: [address] Rajan [facility] [place] Resident for Dr. Ba, hospitalist. We discussed the patient's case. The patient will be evaluated by the [facility] for further management. Impression Primary Impression: Pneumonia Additional Impression: Hypoxia Scribe Attestation The scribe's documentation has been prepared under my direction and personally reviewed by me in its entirety. I confirm that the note above accurately reflects all work, treatment, procedures, and medical decision making performed by me. Departure Information Dispostion Being Evaluated By Hospitalist Referrals No Doctor, Assigned (PCP) Patient Instructions [facility] Problem Qualifiers
[2017-07-14] MEDS ORDERED: LEVAQUIN 500MG / 100ML D5W IV ONE (22:15)
[2017-07-14] MEDS ORDERED: LEVALBUTEROL 1.25MG/3ML NEB INH PRN (23:45)
[2017-07-14] MEDS ORDERED: MAGNESIUM HYDROXIDE SUSP 30 ML UDC PO PRN (23:45)
[2017-07-14] MEDS ORDERED: POLYETHYLENE (MIRALAX) 17 GM PACK PO PRN (23:45)
[2017-07-14] MEDS ORDERED: PIPERACILL/TAZOBAC CONSULT ACTIVE PRN (23:45)
[2017-07-14] MEDS ORDERED: ONDANSETRON INJ 2 MG/ML 2 ML VIAL IV PRN (23:45)
[2017-07-14] MEDS ORDERED: ACETAMINOPHEN 325 MG TAB PO PRN (23:45)
[2017-07-15] VITALS (10 sets, daily range): BP systolic 106–139; BP diastolic 54–75; PULSE 77–108; TEMP 36.6–37.2; O2SAT 91–99; Ht 170.2 cm; Wt 38.9 kg
--- NOTE | 2017-07-15 00:23 | History and Physical ---
History & Physical Date & Time of Service: Jul 15, 2017 at 00:05 Chief Complaint: Shortness Of Breath, History Of Pneumonia Primary Care Physician: Carlos Corbett M.D. History of Present Illness Source: patient, hospital records Patient is a 77 year old female with a pmh of CVA with chronic aspiration pneumonia, CAD, Asthma, HTN and HLD that presents with a 4 day history of worsening cough and shortness of breath. The patient was seen by her PCP for similar complaints 4 days ago and was started on a course of Ciprofloxacin. The patient has continued to have a worsening productive cough and shortness of breath since along with intermittent fevers. The patient has been followed by speech therapy as an outpatient for chronic aspiration since last year, but the patient is non compliant with her thickened feeds and explicit dietary instructions. The patient currently lives at home although spend most of her time in bed. The patient is not on home oxygen but is currently requiring 4L in the ED. Patient is also DNR/DNI after her last visit. Family History No pertinent family history Social History Smoking Status: Former Smoker Smokeless Tobacco Use: No Alcohol Use: none Drug Use: none Marital Status: Occupational Status: retired Immunizations History of Influenza Vaccine: No History of Tetanus Vaccine?: Yes History of Pneumococcal: Yes Pneumococcal Date: Feb 20, 2006 History of Hepatitis B Vaccine: No Allergies Coded Allergies: Penicillins (Verified Allergy, Mild, UNKNOWN, 04/23/17) Sulfa Antibiotics (Verified Allergy, Unknown, UNKNOWN, 04/23/17) Quinolones (Verified Adverse Reaction, Mild, UNKNOWN, 04/23/17) Home Medications Scheduled Aspirin (Aspirin Ec), 81 MG PO QAM Atorvastatin (Lipitor), 20 MG PO HS Ciprofloxacin Tab (Cipro), 1 TAB PO Q12 Metoprolol Succ (Toprol Xl) (Toprol-Xl), 25 MG PO QAM Midodrine (Midodrine HCl), 2.5 MG PO TID Scheduled PRN Levalbuterol Hcl (Levalbuterol Hcl), 1.25 MG NEB Q6H PRN for SOB/Wheezing Review of Systems Constitutional: + fever, + fatigue, No chills, No sweats Respiratory: + cough, + sputum, + shortness of breath, No wheezing Cardiovascular: No chest pain, No palpitations Abdomen: No pain, No nausea, No vomiting, No diarrhea, No constipation Musculoskeletal: No joint pain, No muscle pain Genitourinary - Female: No dysuria Neurologic: No memory loss, No numbness/tingling Endocrine: No fatigue Physical Exam Vital Signs Date Time Temp Pulse Resp B/P (MAP) Pulse Ox O2 Delivery O2 Flow Rate FiO2 07/15/17 00:00 118 20 126/54 100 Nasal Cannula 4.0 Humidified Oxygen 07/14/17 21:58 37.5 112 16 156/74 98 Room Air 07/14/17 21:50 119 07/14/17 21:00 100 Nasal Cannula 6.0 07/14/17 21:00 100 Nasal Cannula 4.0 07/14/17 20:38 36.8 128 28 152/66 82 Room Air General Appearance: + mild distress (increased WOB), + cachetic, + thin Head: normocephalic, atraumatic Eyes: normal inspection, sclerae normal Neck: supple, no carotid bruits Respiratory/Chest: chest non-tender, + decreased breath sounds (At the left base), + accessory muscle use, + pertinent finding (Coarse breath sound bilaterally) Cardiovascular: regular rate, rhythm, no edema, no gallop Abdomen/GI: normal bowel sounds, non tender, soft Neurologic/Psych: alert, normal mood/affect, oriented x 3 Diagnostics Laboratory Results Results Past 24 Hours Test 07/14/17 20:55 07/14/17 21:25 07/14/17 23:33 Range/Units White Blood Count 11.03 4.8-10.8 K/uL Red Blood Count 4.94 4.2-5.4 M/uL Hemoglobin 13.4 12.0-16.0 g/dL Hematocrit 41.0 37-47 % Mean Corpuscular Volume 83.0 80-100 fL Mean Corpuscular Hemoglobin 27.1 25-34 pg Mean Corpuscular Hemoglobin Concent 32.7 32-36 g/dl Platelet Count 405 130-400 K/uL Mean Platelet Volume 9.8 7.4-10.4 fL Neutrophils (%) (Auto) 68.3 % Lymphocytes (%) (Auto) 11.7 % Monocytes (%) (Auto) 19.1 % Eosinophils (%) (Auto) 0.3 % Basophils (%) (Auto) 0.3 % Neutrophils # (Auto) 7.54 1.4-6.5 K/uL Lymphocytes # (Auto) 1.29 1.2-3.4 K/uL Monocytes # (Auto) 2.11 0.11-0.59 K/uL Eosinophils # (Auto) 0.03 0-0.5 K/uL Basophils # (Auto) 0.03 0-0.2 K/uL RDW Standard Deviation 44.3 36.4-46.3 fL RDW Coefficient of Variation 14.6 11.5-14.5 % Immature Granulocyte % (Auto) 0.3 % Immature Granulocyte # (Auto) 0.03 0.00-0.02 K/uL Sodium Level 133 136-145 mmol/L Potassium Level 3.9 3.5-5.1 mmol/L Chloride Level 96 98-107 mmol/L Carbon Dioxide Level 29 21-32 mmol/L Anion Gap 8.0 3-11 mmol/L Blood Urea Nitrogen 18 7-18 mg/dl Creatinine 0.67 0.60-1.20 mg/dl Estimated GFR () 98.3 Estimated GFR (Non- 84.8 BUN/Creatinine Ratio 27.1 10-20 Random Glucose 139 70-99 mg/dl Calcium Level 9.1 8.5-10.1 mg/dl Total Bilirubin 0.4 0.2-1 mg/dl Aspartate Amino Transf (AST/SGOT) 27 15-37 U/L Alanine Aminotransferase (ALT/SGPT) 24 12-78 U/L Alkaline Phosphatase 116 45-117 U/L Total Creatine Kinase 22 26-192 U/L Creatine Kinase MB 1.1 0.5-3.6 ng/ml Creatine Kinase MB Ratio 5.0 0-3.0 Troponin I < 0.015 0-0.045 ng/ml Total Protein 9.9 6.4-8.2 gm/dl Albumin 2.5 3.4-5.0 gm/dl Globulin 7.4 2.5-4.0 gm/dl Albumin/Globulin Ratio 0.3 0.9-2 Chemistry Specimen Hemolysis Bedside Lactic Acid Venous 2.13 0.90-1.70 mmol/L Microbiology Results 07/14/17 Blood Culture, Received Pending 07/14/17 Blood Culture, Received Pending Impression Assessment and Plan Patient is a 77 year old female with a pmh of CVA with chronic aspiration pneumonia, CAD, Asthma, HTN and HLD that presents with a 4 day history of worsening cough and shortness of breath Acute Hypoxic Respiratory Failure - Supplemental oxygen to maintain SpO2 > 90% - Duonebs - Home Xopenex - Admit to telemetry Aspiration Pneumonia - CXR: Left infiltrate at lung base --> Appears to worsen since previous X-ray 1 month ago - Zosyn 3.375mg IV q8h --> HISTORY OF CDIFF SO STARTED PATIENT ON PO FLAGYL 500mg PO BID - Diet --> Aspiration precautions with Honey Thickened feeds, Sitting upright - Leukocytosis --> Monitor with daily CBC - POC Lactic Acid 2.13 --> Repeat Lactic Acid at 6 hours from admission - Speech Therapy consult Hyponatremia - Na 133 - IV NS @ 60 mls/hr Hyperglobulinemia - Globulin level 7.4 - Elevated from previous visit - Daily CMP - SPEP for further workup Asthma - Continue home Xopenex CVA/ HLD/ HTN/ CAD - Continue home Aspirin - Continue home Lipitor - Continue home Metoprolol and Midodrine DVT - Heparin Code Status - DNR/DNR Dispo - Case Management involvement --> Attending addendum: I have physically seen this patient, have supervised the medical residents activities, and agree with the H&P unless as otherwise noted. Assessment and Plan: Acute respiratory failure with hypoxia/aspiration pneumonia-- Telemetry admission to follow oxygen closely Zosyn 3.375 mg IV every 8 hours Levofloxacin 500 mg IV every 24 hours Duonebs every 4 hours while awake and every 2 hours when necessary. Sputum Gram stain and culture Titrate nasal cannula oxygen to keep pulse ox greater than or equal to 92% Consult speech therapy Hyperglobulinemia-- Suggest SPEP for further evaluation Advanced Directives Existing Advance Directive: No Existing Living Will: No Existing Power of Beaming Inspector: No Resuscitation Status VTE Prophylaxis Will order VTE Prophylaxis: Yes Resident Tracking Resident Involvement: Resident Care Provided Care Provided: Adult Hospital Medicine
[2017-07-15] MEDS ORDERED: PATIENT'S HEIGHT AND/OR WEIGHT NEEDED SCH (01:00)
[2017-07-15 01:57] LABS: INR 1.1 (0.9-1.1); PTT PATIENT 30.2 SECONDS (21.0-31.0)
[2017-07-15] MEDS: SODIUM CHLORIDE 0.9% 1000ML 1,000 ML IV SCH ×2 (02:16→17:40)
[2017-07-15] MEDS: PIPERACILL/TAZOBAC IV 3.375 GM in DEXTROSE 5% 100ML 100 ML IV SCH ×3 (04:36→20:38)
[2017-07-15] MEDS: ALBUT/IPRATROP 3MG/0.5MG NEB 3 ML VIAL INH SCH ×3 (07:19→19:14)
[2017-07-15] MEDS: ASPIRIN 81 MG ECTAB PO SCH (07:56)
[2017-07-15] MEDS: METOPROLOL SUCC 25MG EXT REL TAB PO SCH (07:57)
[2017-07-15] MEDS: MIDODRINE 2.5 MG TAB PO SCH ×4 (07:57→18:59)
[2017-07-15] MEDS: HEPARIN SOD 5000 UNIT/0.5 ML CARP SQ SCH ×3 (07:58→21:51)
[2017-07-15 08:48] LABS: ALBUMIN 1.8 gm/dl (3.4-5.0); CALCIUM 8.4 mg/dl (8.5-10.1); CREATININE 0.39 mg/dl (0.60-1.20); POTASSIUM 3.5 mmol/L (3.5-5.1)
[2017-07-15 08:54] LABS: HEMATOCRIT 32.4 % (37-47); HEMOGLOBIN 10.5 g/dL (12.0-16.0); MEAN CELL VOLUME 83.1 fL (80-100); MEAN CORPUSCULAR HEMOGLOBIN 26.9 pg (25-34); MEAN CORPUSCULAR HGB CONC 32.4 g/dl (32-36); MEAN PLATELET VOLUME 9.8 fL (7.4-10.4); PLATELET COUNT 266 K/uL (130-400); RED CELL DISTRIBUTION WIDTH CV 14.7 % (11.5-14.5); RED CELL DISTRIBUTION WIDTH SD 44.7 fL (36.4-46.3); TOTAL PROTEIN 7.4 gm/dl (6.4-8.2); WHITE BLOOD COUNT 7.05 K/uL (4.8-10.8)
[2017-07-15 08:55] LABS: BASO % 0.1 %; BASO ABS # 0.01 K/uL (0-0.2); EOS % 0.1 %; EOS ABS # 0.01 K/uL (0-0.5); IG# 0.02 K/uL (0.00-0.02); LYMPH % 10.5 %; LYMPH ABS # 0.74 K/uL (1.2-3.4); MONO ABS # 1.76 K/uL (0.11-0.59); NEUT ABS # 4.51 K/uL (1.4-6.5)
[2017-07-15] MEDS ORDERED: METRONIDAZOLE 500 MG TAB PO SCH (09:00)
--- NOTE | 2017-07-15 10:36 | Family Medicine Progress Note ---
Progress Note Date of Service Jul 15, 2017. Subjective Pt evaluation today including: conversation w/ patient, conversation w/ family Met with patient and her granddaughter this morning. They report she essentially home during the day by herself, and is not able to get out of the chair to access food. She also has a low appetite and feels very weak overall. She has not been doing the honey-thickened liquids. She says she is not ready to talk about going to a group home. She says "if I want to survive I have to start drinking that thick stuff". She wants to "keep fighting". Granddaughter had concerns about her being alone in the day as well. Constitutional: + weight loss, + weakness, No fever, No sweats Eyes: No worsening of vision ENT: No hearing loss Respiratory: + cough, + sputum, + wheezing, + shortness of breath, + dyspnea on exertion, + dyspnea at rest Cardiovascular: No chest pain Abdomen: No pain, No nausea All Other Systems: Reviewed and Negative Medications Current Inpatient Medications Medications (Trade) Dose Ordered Sig/Irene Route Start Time Stop Time Status Last Admin Dose Admin Sodium Chloride 1,000 ml @ 60 mls/hr [id number] IV 07/15/17 01:00 08/14/17 00:59 07/15/17 02:16 60 MLS/HR Acetaminophen (Tylenol Tab) 650 mg Q4H PRN PO 07/14/17 23:45 08/13/17 23:44 Magnesium Hydroxide (Milk Of Magnesia Susp) 30 ml Q12H PRN PO 07/14/17 23:45 08/13/17 23:44 Ondansetron HCl (Zofran Inj) 4 mg Q6H PRN IV 07/14/17 23:45 08/13/17 23:44 Polyethylene (Miralax Powder Packet) 17 gm DAILY PRN PO 07/14/17 23:45 08/13/17 23:44 Aspirin (Ecotrin Tab) 81 mg QAM PO 07/15/17 09:00 08/14/17 08:59 07/15/17 07:56 81 MG Atorvastatin Calcium (Lipitor Tab) 20 mg HS PO 07/15/17 21:00 08/14/17 20:59 Levalbuterol (Xopenex 1.25MG/ 3ML Neb) 1.25 mg Q6H PRN INH 3/5/18 23:45 08/13/17 23:44 Metoprolol Succinate (Toprol Xl Tab) 25 mg QAM PO 07/15/17 09:00 08/14/17 08:59 07/15/17 07:57 25 MG Midodrine (Proamatine Tab) 2.5 mg TID@0800,1200,1800 PO 07/15/17 08:00 08/14/17 07:59 07/15/17 07:57 2.5 MG Piperacillin Sod/ Tazobactam Sod 3.375 gm/Dextrose 115 ml @ 28.75 mls/ hr Q8H IV 07/15/17 04:00 07/22/17 03:59 07/15/17 04:36 28.75 MLS/HR Miscellaneous Information (Consult) 1 ea UD PRN N/A 07/14/17 23:45 08/13/17 23:44 Albuterol/ Ipratropium (Duoneb) 3 ml QIDR INH 07/15/17 08:00 08/14/17 07:59 07/15/17 07:19 3 ML Metronidazole (Flagyl Tab) 500 mg BID PO 07/15/17 09:00 07/17/17 08:59 07/15/17 07:56 500 MG Heparin Sodium (Porcine) (Heparin Sq 5000 Unit/0.5ml) 5,000 unit Q8 SQ 07/15/17 06:00 08/14/17 05:59 07/15/17 07:58 5,000 UNIT Objective Vital Signs Date Time Temp Pulse Resp B/P (MAP) Pulse Ox O2 Delivery O2 Flow Rate FiO2 07/15/17 08:00 Nasal Cannula 3.0 07/15/17 07:41 37.0 89 20 106/57 (73) 94 Nasal Cannula 4.0 07/15/17 07:20 94 97 Nasal Cannula 3.0 07/15/17 04:00 Nasal Cannula 4.0 07/15/17 03:10 36.8 99 14 118/64 (82) 94 Nasal Cannula 07/15/17 00:40 37.2 107 20 139/75 94 Nasal Cannula 4.0 07/15/17 00:00 118 20 126/54 100 Nasal Cannula 4.0 Humidified Oxygen 07/14/17 21:58 37.5 112 16 156/74 98 Room Air 07/14/17 21:50 119 07/14/17 21:00 100 Nasal Cannula 6.0 07/14/17 21:00 100 Nasal Cannula 4.0 07/14/17 20:38 36.8 128 28 152/66 82 Room Air Physical Exam General Appearance: WD/WN, no apparent distress, + cachetic, + thin Eyes: normal inspection, PERRL ENT: hearing grossly normal Neck: supple, no JVD Respiratory/Chest: + decreased breath sounds, + crackles (upper airway secretions transmitted) Cardiovascular: regular rate, rhythm, no murmur Abdomen: non tender, soft Extremities: non-tender, normal inspection, no pedal edema Neurologic/Psychiatric: alert, normal mood/affect, oriented x 3 Skin: no rash Laboratory Results Last 24 Hours Test 07/14/17 20:55 07/14/17 21:25 07/14/17 23:55 07/15/17 01:10 White Blood Count 11.03 K/uL Red Blood Count 4.94 M/uL Hemoglobin 13.4 g/dL Hematocrit 41.0 % Mean Corpuscular Volume 83.0 fL Mean Corpuscular Hemoglobin 27.1 pg Mean Corpuscular Hemoglobin Concent 32.7 g/dl Platelet Count 405 K/uL Mean Platelet Volume 9.8 fL Neutrophils (%) (Auto) 68.3 % Lymphocytes (%) (Auto) 11.7 % Monocytes (%) (Auto) 19.1 % Eosinophils (%) (Auto) 0.3 % Basophils (%) (Auto) 0.3 % Neutrophils # (Auto) 7.54 K/uL Lymphocytes # (Auto) 1.29 K/uL Monocytes # (Auto) 2.11 K/uL Eosinophils # (Auto) 0.03 K/uL Basophils # (Auto) 0.03 K/uL RDW Standard Deviation 44.3 fL RDW Coefficient of Variation 14.6 % Immature Granulocyte % (Auto) 0.3 % Immature Granulocyte # (Auto) 0.03 K/uL Sodium Level 133 mmol/L Potassium Level 3.9 mmol/L Chloride Level 96 mmol/L Carbon Dioxide Level 29 mmol/L Anion Gap 8.0 mmol/L Blood Urea Nitrogen 18 mg/dl Creatinine 0.67 mg/dl Estimated GFR () 98.3 Estimated GFR (Non- 84.8 BUN/Creatinine Ratio 27.1 Random Glucose 139 mg/dl Calcium Level 9.1 mg/dl Total Bilirubin 0.4 mg/dl Aspartate Amino Transf (AST/SGOT) 27 U/L Alanine Aminotransferase (ALT/SGPT) 24 U/L Alkaline Phosphatase 116 U/L Total Creatine Kinase 22 U/L Creatine Kinase MB 1.1 ng/ml Creatine Kinase MB Ratio 5.0 Troponin I < 0.015 ng/ml Total Protein 9.9 gm/dl Albumin 2.5 gm/dl Globulin 7.4 gm/dl Albumin/Globulin Ratio 0.3 Chemistry Specimen Hemolysis Bedside Lactic Acid Venous 2.13 mmol/L Prothrombin Time 11.4 SECONDS Prothromb Time International Ratio 1.1 Activated Partial Thromboplast Time 30.2 SECONDS Partial Thromboplastin Ratio 1.2 Test 07/15/17 01:11 07/15/17 07:53 Lactic Acid Level 1.9 mmol/L White Blood Count 7.05 K/uL Red Blood Count 3.90 M/uL Hemoglobin 10.5 g/dL Hematocrit 32.4 % Mean Corpuscular Volume 83.1 fL Mean Corpuscular Hemoglobin 26.9 pg Mean Corpuscular Hemoglobin Concent 32.4 g/dl Platelet Count 266 K/uL Mean Platelet Volume 9.8 fL Neutrophils (%) (Auto) 64.0 % Lymphocytes (%) (Auto) 10.5 % Monocytes (%) (Auto) 25.0 % Eosinophils (%) (Auto) 0.1 % Basophils (%) (Auto) 0.1 % Neutrophils # (Auto) 4.51 K/uL Lymphocytes # (Auto) 0.74 K/uL Monocytes # (Auto) 1.76 K/uL Eosinophils # (Auto) 0.01 K/uL Basophils # (Auto) 0.01 K/uL RDW Standard Deviation 44.7 fL RDW Coefficient of Variation 14.7 % Immature Granulocyte % (Auto) 0.3 % Immature Granulocyte # (Auto) 0.02 K/uL Sodium Level 136 mmol/L Potassium Level 3.5 mmol/L Chloride Level 102 mmol/L Carbon Dioxide Level 29 mmol/L Anion Gap 6.0 mmol/L Blood Urea Nitrogen 13 mg/dl Creatinine 0.39 mg/dl Est Creatinine Clear Calc Drug Dose 74.2 ml/min Estimated GFR () 117.4 Estimated GFR (Non- 101.3 BUN/Creatinine Ratio 32.5 Random Glucose 121 mg/dl Calcium Level 8.4 mg/dl Total Bilirubin 0.4 mg/dl Aspartate Amino Transf (AST/SGOT) 14 U/L Alanine Aminotransferase (ALT/SGPT) 13 U/L Alkaline Phosphatase 84 U/L Total Protein 7.4 gm/dl Albumin 1.8 gm/dl Globulin 5.6 gm/dl Albumin/Globulin Ratio 0.3 Assessment and Plan 77 yo F w/chronic aspiration since CVA who presents with recurrent aspiration pneumonia and cachexia. Acute hypoxic respiratory failure - Continue nasal cannula O2 - Duonebs - Monitored on Telemetry overnight, will transfer to Med/Surg Aspiration pneumonia - Continue Zosyn TID - Stopped PO Flagyl per new IDSA guidelines/discussion with pharmacy - Speech consult - Pt more willing to try thickened fluids Hyperglobulinemia - Globulin level 7.4 - Elevated from previous visit - Daily CMP - SPEP for further workup Asthma - Continue home Xopenex CVA/ HLD/ HTN/ CAD - Continue home Aspirin - Continue home Lipitor - Continue home Metoprolol and Midodrine <-- Unclear why she is on this combination, will investigate further in past hx VTE: Heparin Dispo: Pt may need placement to improve nutritional status prior to returning home, 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 Discussed with Dr. Marques and agree with findings and plan as documented in the note. Any exceptions or clarifications are listed here: None Documented By: Elmer Baker This patient's continue to have challenges with coughing when eating and has an understanding that she has been noncompliant with her aspiration precautions are recommended the patient herself wants to return home however her family caregiver which is her granddaughter states that they cannot care for the patient home any longer patient is markedly malnourished with BMI of 13. Patient herself is not ready to "give up" however we may pursue some palliative care discussions in the future we are starting an antidepressant Temperature is 37 pulse is 89 respiration rate 20 BP 106/57 her lungs have coarse breath sounds at both bases worse on the left heart is regular with a systolic murmur she is leaning to the right with her head tilted to the left Aspiration pneumonia from aspiration resulting from previous CVAs will apply aspiration precautions and thickened liquids here continuing Zosyn therapy incidentally in some that she is markedly elevated IgG and total protein unlikely she has some smoldering leukemia type process has not been previously diagnosed she however has not had any significant decrement in her hemoglobin or platelets at this time given her overall general condition being poor and the fact that she is considering possibly progressing towards a palliative type of disposition further aggressive workup may not be warranted Resident Tracking Resident Involvement: Resident Care Provided Care Provided: Adult [facility] Medicine
[2017-07-15] MEDS: BOOST PLUS VANILLA PO SCH (17:00)
[2017-07-15] MEDS ORDERED: VANCOMYCIN CONSULT ACTIVE PRN (19:45)
[2017-07-15] MEDS ORDERED: VANCOMYCIN IV 750 MG in SODIUM CHLORIDE 0.9% 250ML 250 ML IV ONE (20:00)
--- NOTE | 2017-07-15 20:31 | Pharmacy Progress Note ---
Pharmacy Antibiotic Consult Date of Service: Jul 15, 2017. Pharmacy Dosing Scope Pharmacy is consulted to initiate vancomycin/zosyn IV dosing therapy, order appropriate labs and adjust drug dose/frequency. Subjective The patient is a 77 year old female admitted on Jul 14, 2017 at 23:59. Objective Height (Feet): 5 Height (Inches): 7.00 Weight (Kilograms): 38.900 Lab Results (24hrs): Test 07/14/17 20:55 07/14/17 21:25 07/14/17 23:55 07/15/17 01:10 White Blood Count 11.03 K/uL (4.8-10.8) Red Blood Count 4.94 M/uL (4.2-5.4) Hemoglobin 13.4 g/dL (12.0-16.0) Hematocrit 41.0 % (37-47) Mean Corpuscular Volume 83.0 fL (80-100) Mean Corpuscular Hemoglobin 27.1 pg (25-34) Mean Corpuscular Hemoglobin Concent 32.7 g/dl (32-36) Platelet Count 405 K/uL (130-400) Mean Platelet Volume 9.8 fL (7.4-10.4) Neutrophils (%) (Auto) 68.3 % Lymphocytes (%) (Auto) 11.7 % Monocytes (%) (Auto) 19.1 % Eosinophils (%) (Auto) 0.3 % Basophils (%) (Auto) 0.3 % Neutrophils # (Auto) 7.54 K/uL (1.4-6.5) Lymphocytes # (Auto) 1.29 K/uL (1.2-3.4) Monocytes # (Auto) 2.11 K/uL (0.11-0.59) Eosinophils # (Auto) 0.03 K/uL (0-0.5) Basophils # (Auto) 0.03 K/uL (0-0.2) RDW Standard Deviation 44.3 fL (36.4-46.3) RDW Coefficient of Variation 14.6 % (11.5-14.5) Immature Granulocyte % (Auto) 0.3 % Immature Granulocyte # (Auto) 0.03 K/uL (0.00-0.02) Sodium Level 133 mmol/L (136-145) Potassium Level 3.9 mmol/L (3.5-5.1) Chloride Level 96 mmol/L (98-107) Carbon Dioxide Level 29 mmol/L (21-32) Anion Gap 8.0 mmol/L (3-11) Blood Urea Nitrogen 18 mg/dl (7-18) Creatinine 0.67 mg/dl (0.60-1.20) Estimated GFR () 98.3 Estimated GFR (Non- 84.8 BUN/Creatinine Ratio 27.1 (10-20) Random Glucose 139 mg/dl (70-99) Calcium Level 9.1 mg/dl (8.5-10.1) Total Bilirubin 0.4 mg/dl (0.2-1) Aspartate Amino Transf (AST/SGOT) 27 U/L (15-37) Alanine Aminotransferase (ALT/SGPT) 24 U/L (12-78) Alkaline Phosphatase 116 U/L (45-117) Total Creatine Kinase 22 U/L (26-192) Creatine Kinase MB 1.1 ng/ml (0.5-3.6) Creatine Kinase MB Ratio 5.0 (0-3.0) Troponin I < 0.015 ng/ml (0-0.045) Total Protein 9.9 gm/dl (6.4-8.2) Albumin 2.5 gm/dl (3.4-5.0) Globulin 7.4 gm/dl (2.5-4.0) Albumin/Globulin Ratio 0.3 (0.9-2) Chemistry Specimen Hemolysis Bedside Lactic Acid Venous 2.13 mmol/L (0.90-1.70) Prothrombin Time 11.4 SECONDS (9.0-12.0) Prothromb Time International Ratio 1.1 (0.9-1.1) Activated Partial Thromboplast Time 30.2 SECONDS (21.0-31.0) Partial Thromboplastin Ratio 1.2 Test 07/15/17 01:11 07/15/17 07:53 Lactic Acid Level 1.9 mmol/L (0.4-2.0) White Blood Count 7.05 K/uL (4.8-10.8) Red Blood Count 3.90 M/uL (4.2-5.4) Hemoglobin 10.5 g/dL (12.0-16.0) Hematocrit 32.4 % (37-47) Mean Corpuscular Volume 83.1 fL (80-100) Mean Corpuscular Hemoglobin 26.9 pg (25-34) Mean Corpuscular Hemoglobin Concent 32.4 g/dl (32-36) Platelet Count 266 K/uL (130-400) Mean Platelet Volume 9.8 fL (7.4-10.4) Neutrophils (%) (Auto) 64.0 % Lymphocytes (%) (Auto) 10.5 % Monocytes (%) (Auto) 25.0 % Eosinophils (%) (Auto) 0.1 % Basophils (%) (Auto) 0.1 % Neutrophils # (Auto) 4.51 K/uL (1.4-6.5) Lymphocytes # (Auto) 0.74 K/uL (1.2-3.4) Monocytes # (Auto) 1.76 K/uL (0.11-0.59) Eosinophils # (Auto) 0.01 K/uL (0-0.5) Basophils # (Auto) 0.01 K/uL (0-0.2) RDW Standard Deviation 44.7 fL (36.4-46.3) RDW Coefficient of Variation 14.7 % (11.5-14.5) Immature Granulocyte % (Auto) 0.3 % Immature Granulocyte # (Auto) 0.02 K/uL (0.00-0.02) Sodium Level 136 mmol/L (136-145) Potassium Level 3.5 mmol/L (3.5-5.1) Chloride Level 102 mmol/L (98-107) Carbon Dioxide Level 29 mmol/L (21-32) Anion Gap 6.0 mmol/L (3-11) Blood Urea Nitrogen 13 mg/dl (7-18) Creatinine 0.39 mg/dl (0.60-1.20) Est Creatinine Clear Calc Drug Dose 74.2 ml/min Estimated GFR () 117.4 Estimated GFR (Non- 101.3 BUN/Creatinine Ratio 32.5 (10-20) Random Glucose 121 mg/dl (70-99) Calcium Level 8.4 mg/dl (8.5-10.1) Total Bilirubin 0.4 mg/dl (0.2-1) Aspartate Amino Transf (AST/SGOT) 14 U/L (15-37) Alanine Aminotransferase (ALT/SGPT) 13 U/L (12-78) Alkaline Phosphatase 84 U/L (45-117) Total Protein 7.4 gm/dl (6.4-8.2) Albumin 1.8 gm/dl (3.4-5.0) Globulin 5.6 gm/dl (2.5-4.0) Albumin/Globulin Ratio 0.3 (0.9-2) Micro Results: Date/Time Source Procedure Growth Status 07/14/17 21:20 Blood Blood Culture - Preliminary Gram Positive Cocci Resulted 07/14/17 20:55 Blood Blood Culture Pending Received Assessment & Plan Assessment: 77 yo female with chronic aspiration, started on zosyn 07/14 Starting empiric vancomycin, 1/2 BC with GPC Resolved leukocytosis, afebrile Plan: Loading dose: 750 mg (19 mg/kg) IV X 1 dose Patient's SCr is 0.39, height 67 inches, predicts a CrCl of 72, given patient's age and weight suspect this may be an overestimation. T1/2 estimate is 11 hrs. Will check random level in AM prior to starting maintenance dose. Goal trough level estimate: between 12-20 mcg/mL. Random level ordered for 07/16 with AM labs. Pharmacy will continue to follow and will adjust dose/frequency as necessary. Thank you
[2017-07-15] MEDS: ATORVASTATIN 20 MG TAB PO SCH (20:37)
[2017-07-15] MEDS: MIRTAZAPINE TAB 15 MG TAB PO SCH (20:37)
[2017-07-15] MEDS ORDERED: VANCOMYCIN IV 1,000 MG in SODIUM CHLORIDE 0.9% 250ML 250 ML IV SCH (21:00)
[2017-07-16] VITALS (11 sets, daily range): BP systolic 106–141; BP diastolic 63–80; PULSE 80–105; TEMP 37–37.3; O2SAT 91–98
[2017-07-16] MEDS: SODIUM CHLORIDE 0.9% 1000ML 1,000 ML IV SCH ×2 (02:19→17:49)
[2017-07-16] MEDS: PIPERACILL/TAZOBAC IV 3.375 GM in DEXTROSE 5% 100ML 100 ML IV SCH ×3 (04:03→20:47)
[2017-07-16] MEDS: HEPARIN SOD 5000 UNIT/0.5 ML CARP SQ SCH ×3 (05:39→20:49)
--- NOTE | 2017-07-16 07:28 | Clinical Documentation Query ---
QUERY 1 OF [address] SEGOVIA, In your clinical opinion is this patient being managed for: ( ) Sepsis, POA ( ) Not Agree ( ) Other explanation of clinical findings (Please Explain) ( ) Unable to determine (Please Define) ( x) Need to Discuss The medical record reflects the following clinical findings, treatment, and risk factors. Clinical Indicators: 77 yo female presenting with aspiration pneumonia and acute respiratory failure. WBC 11.03HR 128, POC lactic acid 2.13. Blood cx x 1 preliminary with gram + cocci Treatment: 1L NSS bolus in ER then continuous, IV zosyn, IV levaquin, O2 support, tele Risk Factors: recurrent aspiration pneumonia QUERY 2 OF 2 In your clinical opinion is this patient being managed for: ( x) Severe protein-calorie malnutrition ( ) Not Agree ( ) Other explanation of clinical findings (Please Explain) ( ) Unable to determine (Please Define) ( ) Need to Discuss The medical record reflects the following clinical findings, treatment, and risk factors. Clinical Indicators: 77 yo female presenting with recurrent aspiration pneumonia. Per dietary consult, pt has had a 12.3% wt loss in less than 4 months which is considered significant. Pt has had a decreased appetite and dysphagia. Described as "thin" and "cachectic". Treatment:dietary consult, daily wts, I/O, Boost plus bid, IV fluids, Risk Factors: chronic aspiration with dietary restrictions, home environment (alone during day while family works), hx CVA Please clarify and document your clinical opinion in the progress notes and discharge summary. Terms such as "probable", "suspected", "likely", "questionable", "possible", or "still to be ruled out" are acceptable. IF IN AGREEMENT, YOU MUST DOCUMENT ABOVE DIAGNOSTIC STATEMENT IN DAILY PROGRESS NOTES AND DISCHARGE SUMMARY. This document is not part of the patient's record. Thank You, Mayuri Guillen, RN [phone]
--- NOTE | 2017-07-16 07:29 | Clinical Documentation Query ---
QUERY 1 OF [address] SHULTZ, In your clinical opinion is this patient being managed for: ( ) Sepsis, POA ( xx) Not Agree ( ) Other explanation of clinical findings (Please Explain) ( ) Unable to determine (Please Define) ( ) Need to Discuss The medical record reflects the following clinical findings, treatment, and risk factors. Clinical Indicators: 77 yo female presenting with aspiration pneumonia and acute respiratory failure. WBC 11.03HR 128, POC lactic acid 2.13. Blood cx x 1 preliminary with gram + cocci Treatment: 1L NSS bolus in ER then continuous, IV zosyn, IV levaquin, O2 support, tele Risk Factors: recurrent aspiration pneumonia QUERY 2 OF 2 In your clinical opinion is this patient being managed for: ( xx ) Severe protein-calorie malnutrition ( ) Not Agree ( ) Other explanation of clinical findings (Please Explain) ( ) Unable to determine (Please Define) ( ) Need to Discuss The medical record reflects the following clinical findings, treatment, and risk factors. Clinical Indicators: 77 yo female presenting with recurrent aspiration pneumonia. Per dietary consult, pt has had a 12.3% wt loss in less than 4 months which is considered significant. Pt has had a decreased appetite and dysphagia. Described as "thin" and "cachectic". Treatment:dietary consult, daily wts, I/O, Boost plus bid, IV fluids, Risk Factors: chronic aspiration with dietary restrictions, home environment (alone during day while family works), hx CVA Please clarify and document your clinical opinion in the progress notes and discharge summary. Terms such as "probable", "suspected", "likely", "questionable", "possible", or "still to be ruled out" are acceptable. IF IN AGREEMENT, YOU MUST DOCUMENT ABOVE DIAGNOSTIC STATEMENT IN DAILY PROGRESS NOTES AND DISCHARGE SUMMARY. This document is not part of the patient's record. Thank You, Mayuri Guillen, RN [phone]
[2017-07-16] MEDS: ALBUT/IPRATROP 3MG/0.5MG NEB 3 ML VIAL INH SCH ×4 (07:40→19:18)
[2017-07-16 08:02] LABS: BASO % 0.2 %; BASO ABS # 0.02 K/uL (0-0.2); EOS % 0.2 %; EOS ABS # 0.02 K/uL (0-0.5); HEMATOCRIT 30.9 % (37-47); HEMOGLOBIN 9.9 g/dL (12.0-16.0); IG# 0.05 K/uL (0.00-0.02); LYMPH % 7.7 %; LYMPH ABS # 0.83 K/uL (1.2-3.4); MEAN CELL VOLUME 82.4 fL (80-100); MEAN CORPUSCULAR HEMOGLOBIN 26.4 pg (25-34); MEAN PLATELET VOLUME 9.1 fL (7.4-10.4); MONO % 19.6 %; NEUT % 71.8 %; NEUT ABS # 7.72 K/uL (1.4-6.5); PLATELET COUNT 237 K/uL (130-400); RED CELL DISTRIBUTION WIDTH CV 14.8 % (11.5-14.5); RED CELL DISTRIBUTION WIDTH SD 44.4 fL (36.4-46.3); WHITE BLOOD COUNT 10.74 K/uL (4.8-10.8)
[2017-07-16] MEDS: BOOST PLUS VANILLA PO SCH ×2 (08:11→17:01)
[2017-07-16] MEDS: MIDODRINE 2.5 MG TAB PO SCH ×3 (08:12→17:48)
[2017-07-16] MEDS: ASPIRIN 81 MG ECTAB PO SCH (08:12)
[2017-07-16] MEDS: METOPROLOL SUCC 25MG EXT REL TAB PO SCH (08:13)
[2017-07-16 08:21] LABS: ALBUMIN 1.7 gm/dl (3.4-5.0); CALCIUM 8.5 mg/dl (8.5-10.1); CREATININE 0.43 mg/dl (0.60-1.20); POTASSIUM 3.3 mmol/L (3.5-5.1)
[2017-07-16 08:27] LABS: TOTAL PROTEIN 6.9 gm/dl (6.4-8.2)
[2017-07-16 08:30] LABS: CREATININE 0.43 mg/dl (0.60-1.20)
--- NOTE | 2017-07-16 09:35 | Pharmacy Progress Note ---
Pharmacy Antibiotic Prog Note Date of Service Jul 16, 2017. Subjective The patient is currently on day # 2 of ? IV therapy. Objective Height (Feet): 5 Height (Inches): 7.00 Weight (Kilograms): 38.900 Lab Results (24hrs): Test 07/16/17 07:52 White Blood Count 10.74 K/uL (4.8-10.8) Red Blood Count 3.75 M/uL (4.2-5.4) Hemoglobin 9.9 g/dL (12.0-16.0) Hematocrit 30.9 % (37-47) Mean Corpuscular Volume 82.4 fL (80-100) Mean Corpuscular Hemoglobin 26.4 pg (25-34) Mean Corpuscular Hemoglobin Concent 32.0 g/dl (32-36) Platelet Count 237 K/uL (130-400) Mean Platelet Volume 9.1 fL (7.4-10.4) Neutrophils (%) (Auto) 71.8 % Lymphocytes (%) (Auto) 7.7 % Monocytes (%) (Auto) 19.6 % Eosinophils (%) (Auto) 0.2 % Basophils (%) (Auto) 0.2 % Neutrophils # (Auto) 7.72 K/uL (1.4-6.5) Lymphocytes # (Auto) 0.83 K/uL (1.2-3.4) Monocytes # (Auto) 2.10 K/uL (0.11-0.59) Eosinophils # (Auto) 0.02 K/uL (0-0.5) Basophils # (Auto) 0.02 K/uL (0-0.2) RDW Standard Deviation 44.4 fL (36.4-46.3) RDW Coefficient of Variation 14.8 % (11.5-14.5) Immature Granulocyte % (Auto) 0.5 % Immature Granulocyte # (Auto) 0.05 K/uL (0.00-0.02) Sodium Level 137 mmol/L (136-145) Potassium Level 3.3 mmol/L (3.5-5.1) Chloride Level 103 mmol/L (98-107) Carbon Dioxide Level 29 mmol/L (21-32) Anion Gap 6.0 mmol/L (3-11) Blood Urea Nitrogen 12 mg/dl (7-18) Creatinine 0.43 mg/dl (0.60-1.20) Est Creatinine Clear Calc Drug Dose 67.3 ml/min Estimated GFR () 113.7 Estimated GFR (Non- 98.1 BUN/Creatinine Ratio 26.5 (10-20) Random Glucose 123 mg/dl (70-99) Calcium Level 8.5 mg/dl (8.5-10.1) Total Bilirubin 0.4 mg/dl (0.2-1) Aspartate Amino Transf (AST/SGOT) 24 U/L (15-37) Alanine Aminotransferase (ALT/SGPT) 18 U/L (12-78) Alkaline Phosphatase 113 U/L (45-117) Total Protein 6.9 gm/dl (6.4-8.2) Albumin 1.7 gm/dl (3.4-5.0) Globulin 5.2 gm/dl (2.5-4.0) Albumin/Globulin Ratio 0.3 (0.9-2) Random Vancomycin Level 5.8 mcg/ml Assessment & Plan This AM, Ms. Lui' random lvl is sub-therapeutic at 5.8mcg/mL. This leads me to believe she is clearing the vanco faster than originally observed. Population p'kinetics is difficult to estimate in this type of a patient. Given the estimated peak of ~28mcg/mL and today's random lvl, will initiate Vanco 500mg (13mcg/mL) q12. I feel this to be a conservative dose and regimen. Trough ordered for 07/17/17 @ 0930, prior to the third maintenance dose. Goal trough at this juncture: 15-20mcg/mL. EI Zosyn 3.375g q8 appropriate for clinical status and eCrCl>20cc/min Pharmacy will continue to follow and will adjust dose/frequency as necessary. Thank you
[2017-07-16] MEDS ORDERED: VANCOMYCIN IV 500 MG in SODIUM CHLORIDE 0.9% 250ML 250 ML IV SCH (10:00)
--- NOTE | 2017-07-16 12:24 | Family Medicine Progress Note ---
Progress Note Date of Service Jul 16, 2017. Subjective Pt evaluation today including: conversation w/ patient, physical exam Voiding: no voiding problems, no incontinence Feels the same today. Is adamant that she does not want to go to a longterm or facility, and wants to be at home. 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 Told her that her family does not feel she is safe at home and she became quiet and did not reply. She says the thickened foods are ok. Breathing has somewhat improved. Constitutional: No fever, No chills Eyes: No worsening of vision ENT: No hearing loss Respiratory: + cough, + sputum, No shortness of breath, No dyspnea on exertion All Other Systems: Reviewed and Negative Medications Current Inpatient Medications Medications (Trade) Dose Ordered Sig/Irene Route Start Time Stop Time Status Last Admin Dose Admin Sodium Chloride 1,000 ml @ 60 mls/hr [id number] IV 07/15/17 01:00 08/14/17 00:59 07/16/17 02:19 60 MLS/HR Acetaminophen (Tylenol Tab) 650 mg Q4H PRN PO 07/14/17 23:45 08/13/17 23:44 Magnesium Hydroxide (Milk Of Magnesia Susp) 30 ml Q12H PRN PO 07/14/17 23:45 08/13/17 23:44 Ondansetron HCl (Zofran Inj) 4 mg Q6H PRN IV 07/14/17 23:45 08/13/17 23:44 Polyethylene (Miralax Powder Packet) 17 gm DAILY PRN PO 07/14/17 23:45 08/13/17 23:44 Aspirin (Ecotrin Tab) 81 mg QAM PO 07/15/17 09:00 08/14/17 08:59 07/16/17 08:12 81 MG Atorvastatin Calcium (Lipitor Tab) 20 mg HS PO 07/15/17 21:00 08/14/17 20:59 07/15/17 20:37 20 MG Levalbuterol (Xopenex 1.25MG/ 3ML Neb) 1.25 mg Q6H PRN INH 07/14/17 23:45 08/13/17 23:44 Metoprolol Succinate (Toprol Xl Tab) 25 mg QAM PO 07/15/17 09:00 08/14/17 08:59 07/16/17 08:13 25 MG Midodrine (Proamatine Tab) 2.5 mg TID@0800,1200,1800 PO 07/15/17 08:00 08/14/17 07:59 07/16/17 08:12 2.5 MG Piperacillin Sod/ Tazobactam Sod 3.375 gm/Dextrose 115 ml @ 28.75 mls/ hr Q8H IV 07/15/17 04:00 07/22/17 03:59 07/16/17 04:03 28.75 MLS/HR Miscellaneous Information (Consult) [facility] PRN N/A 07/14/17 23:45 08/13/17 23:44 Albuterol/ Ipratropium (Duoneb) 3 ml QIDR INH 07/15/17 08:00 08/14/17 07:59 07/16/17 11:08 3 ML Heparin Sodium (Porcine) (Heparin Sq 5000 Unit/0.5ml) 5,000 unit Q8 SQ 07/15/17 06:00 08/14/17 05:59 07/16/17 05:39 5,000 UNIT Enteral Nutritional Formula (Boost Plus Vanilla) 1 can BIDM PO 07/15/17 17:00 08/14/17 16:59 07/16/17 08:11 1 CAN Mirtazapine (Remeron Tab) 7.5 mg HS PO 07/15/17 21:00 08/14/17 20:59 07/15/17 20:37 7.5 MG Miscellaneous Information (Consult) 1 [facility] PRN N/A 07/15/17 19:45 08/14/17 19:44 Vancomycin HCl 500 mg/Sodium Chloride 260 ml @ 125 mls/hr Q12H IV 07/16/17 10:00 07/18/17 09:59 Objective Vital Signs Date Time Temp Pulse Resp B/P (MAP) Pulse Ox O2 Delivery O2 Flow Rate FiO2 07/16/17 11:55 37.0 88 18 121/70 (87) 97 Nasal Cannula 2.0 07/16/17 11:11 80 16 96 Nasal Cannula 2.0 07/16/17 10:38 85 93 07/16/17 10:38 96 Nasal Cannula 2.0 07/16/17 08:20 96 Nasal Cannula 2.0 07/16/17 07:58 37.3 102 16 106/63 (77) 96 Nasal Cannula 2.0 07/16/17 07:43 98 16 91 Nasal Cannula 2.0 07/15/17 23:45 Nasal Cannula 2.0 07/15/17 23:38 36.6 108 18 133/65 (87) 91 Nasal Cannula 2.0 07/15/17 19:14 88 16 94 Nasal Cannula 3.0 07/15/17 15:46 85 97 Nasal Cannula 2.0 07/15/17 15:35 Nasal Cannula 3.0 07/15/17 15:24 36.8 84 20 121/63 (82) 96 Nasal Cannula 2.0 Physical Exam General Appearance: WD/WN, no apparent distress, + cachetic, + thin Eyes: normal inspection, PERRL ENT: hearing grossly normal Neck: supple, no JVD Respiratory/Chest: normal breath sounds, no accessory muscle use, + crackles Cardiovascular: regular rate, rhythm, no murmur Abdomen: normal bowel sounds, non tender, soft Extremities: non-tender, no pedal edema Neurologic/Psychiatric: oriented x 3 Laboratory Results Last 24 Hours Test 07/16/17 07:52 White Blood Count 10.74 K/uL Red Blood Count 3.75 M/uL Hemoglobin 9.9 g/dL Hematocrit 30.9 % Mean Corpuscular Volume 82.4 fL Mean Corpuscular Hemoglobin 26.4 pg Mean Corpuscular Hemoglobin Concent 32.0 g/dl Platelet Count 237 K/uL Mean Platelet Volume 9.1 fL Neutrophils (%) (Auto) 71.8 % Lymphocytes (%) (Auto) 7.7 % Monocytes (%) (Auto) 19.6 % Eosinophils (%) (Auto) 0.2 % Basophils (%) (Auto) 0.2 % Neutrophils # (Auto) 7.72 K/uL Lymphocytes # (Auto) 0.83 K/uL Monocytes # (Auto) 2.10 K/uL Eosinophils # (Auto) 0.02 K/uL Basophils # (Auto) 0.02 K/uL RDW Standard Deviation 44.4 fL RDW Coefficient of Variation 14.8 % Immature Granulocyte % (Auto) 0.5 % Immature Granulocyte # (Auto) 0.05 K/uL Sodium Level 137 mmol/L Potassium Level 3.3 mmol/L Chloride Level 103 mmol/L Carbon Dioxide Level 29 mmol/L Anion Gap 6.0 mmol/L Blood Urea Nitrogen 12 mg/dl Creatinine 0.43 mg/dl Est Creatinine Clear Calc Drug Dose 67.3 ml/min Estimated GFR () 113.7 Estimated GFR (Non- 98.1 BUN/Creatinine Ratio 26.5 Random Glucose 123 mg/dl Calcium Level 8.5 mg/dl Total Bilirubin 0.4 mg/dl Aspartate Amino Transf (AST/SGOT) 24 U/L Alanine Aminotransferase (ALT/SGPT) 18 U/L Alkaline Phosphatase 113 U/L Total Protein 6.9 gm/dl Albumin 1.7 gm/dl Globulin 5.2 gm/dl Albumin/Globulin Ratio 0.3 Random Vancomycin Level 5.8 mcg/ml Assessment and Plan 77 yo F w/chronic aspiration since CVA who presents with recurrent aspiration pneumonia and cachexia. Acute hypoxic respiratory failure - Continue nasal cannula O2, was 82% on admission, now above 90% with 2L - Duonebs regularly and PRN Aspiration pneumonia - Continue Zosyn TID - Stopped PO Flagyl per new IDSA guidelines/discussion with pharmacy - Appreciate speech recommendations, Diet is honey thickened/regular foods and she seems to be tolerating this Hyperglobulinemia - Globulin level 7.4 - W/slight anemia as well. Will await to see if we decide to pursue a more palliative route or can have further workup as outpatient Asthma - Continue home Xopenex CVA/ HLD/ HTN/ CAD - Continue home Aspirin - Continue home Lipitor - Continue home Metoprolol and Midodrine <-- Unclear why she is on this combination, will investigate further in past hx VTE: Heparin Dispo: Discussing w/case management, we feel pt is unsafe to go home unless has 24 hour caregivers which may be financially difficult. Code status: DNR Resident Physician Supervision Note: I interviewed and examined the patient. Discussed with Dr. Marques and agree with findings and plan as documented in the note. Any exceptions or clarifications are listed here: None This patient is improved she still is coughing with yellow-green mucus she is tolerating her thickened liquids she still wants to go home according to her case management the family does not feel taking care for her at home we have not yet been able to connect with the family during the stable to continue to try we will continue with antibiotic therapy at this time considering transition to oral meds soon Vital signs show temp of 37 3 pulse 102 respiration rate 16 BP 106/63 O2 sat is 96 on 2 L blood cultures show 1 of 2 being coag negative staph likely contaminant Her lungs are diminished especially at the bases left greater than right cardiac exam is regular to tachycardic Continue treatment for aspiration pneumonia her metoprolol and midodrine combination may be due to her low blood pressure and relative sinus tachycardia at the current time we are believing that her blood cultures are a contaminant and not a true pathogen we have discontinued vancomycin, we will continue Zosyn but can transition Augmentin if need be in the near future it is my concern that if she goes home without 24-hour supervision she has difficulty caring for herself and would probably be better served in a senior living facility where she has more care and access to food and water Documented By: Elmer Baker Resident Tracking Resident Involvement: Resident Care Provided Care Provided: Adult Hospital Medicine
[2017-07-16] MEDS: ATORVASTATIN 20 MG TAB PO SCH (20:47)
[2017-07-16] MEDS: MIRTAZAPINE TAB 15 MG TAB PO SCH (20:47)
[2017-07-17] VITALS (8 sets, daily range): BP systolic 106–152; BP diastolic 41–76; PULSE 81–112; TEMP 36.8–37.6; O2SAT 92–96
[2017-07-17] MEDS: PIPERACILL/TAZOBAC IV 3.375 GM in DEXTROSE 5% 100ML 100 ML IV SCH ×3 (03:50→20:37)
[2017-07-17] MEDS: HEPARIN SOD 5000 UNIT/0.5 ML CARP SQ SCH ×3 (05:40→20:46)
[2017-07-17] MEDS: ALBUT/IPRATROP 3MG/0.5MG NEB 3 ML VIAL INH SCH ×4 (06:55→19:06)
[2017-07-17 07:36] LABS: BASO % 0.1 %; BASO ABS # 0.01 K/uL (0-0.2); EOS % 0.4 %; EOS ABS # 0.04 K/uL (0-0.5); HEMATOCRIT 33.1 % (37-47); HEMOGLOBIN 10.2 g/dL (12.0-16.0); IG# 0.03 K/uL (0.00-0.02); LYMPH % 10.3 %; LYMPH ABS # 1.07 K/uL (1.2-3.4); MEAN CORPUSCULAR HEMOGLOBIN 25.9 pg (25-34); MEAN CORPUSCULAR HGB CONC 30.8 g/dl (32-36); MEAN PLATELET VOLUME 9.5 fL (7.4-10.4); MONO % 15.8 %; MONO ABS # 1.64 K/uL (0.11-0.59); NEUT % 73.1 %; NEUT ABS # 7.57 K/uL (1.4-6.5); PLATELET COUNT 259 K/uL (130-400); RED CELL DISTRIBUTION WIDTH CV 14.8 % (11.5-14.5); RED CELL DISTRIBUTION WIDTH SD 46.1 fL (36.4-46.3); WHITE BLOOD COUNT 10.36 K/uL (4.8-10.8)
[2017-07-17] MEDS: BOOST PLUS VANILLA PO SCH ×2 (07:55→17:22)
[2017-07-17] MEDS: MIDODRINE 2.5 MG TAB PO SCH (07:56)
[2017-07-17] MEDS: METOPROLOL SUCC 25MG EXT REL TAB PO SCH (07:59)
[2017-07-17] MEDS: ASPIRIN 81 MG ECTAB PO SCH (07:59)
[2017-07-17 08:03] LABS: ALBUMIN 1.5 gm/dl (3.4-5.0); CALCIUM 8.2 mg/dl (8.5-10.1); CREATININE 0.46 mg/dl (0.60-1.20); POTASSIUM 3.2 mmol/L (3.5-5.1)
[2017-07-17 08:06] LABS: TOTAL PROTEIN 6.9 gm/dl (6.4-8.2)
[2017-07-17] MEDS ORDERED: VANCOMYCIN TROUGH ONE (09:30)
[2017-07-17] MEDS: POTASSIUM CHLR 10 MEQ / WTR 10 MEQ in PREMIXED WATER 100 ML IV SCH ×3 (09:56→10:41)
[2017-07-17] MEDS ORDERED: POTASSIUM CHLORIDE 20 MEQ TABCR PO ONE (10:30)
--- NOTE | 2017-07-17 10:55 | Family Medicine Progress Note ---
Progress Note Date of Service Jul 17, 2017. Subjective Pt evaluation today including: conversation w/ patient, physical exam Voiding: no incontinence Mrs Lui has agreed to go to a longterm for a short period of time to get stronger. She denies any new pain or concerns. She is otherwise doing well. She is constipated but declined bowel tx, she says she usually goes every 5 days. Constitutional: + weakness, No fever, No chills Eyes: No worsening of vision ENT: No hearing loss All Other Systems: Reviewed and Negative Medications Current Inpatient Medications Medications (Trade) Dose Ordered Sig/Irene Route Start Time Stop Time Status Last Admin Dose Admin Acetaminophen (Tylenol Tab) 650 mg Q4H PRN PO 07/14/17 23:45 08/13/17 23:44 Magnesium Hydroxide (Milk Of Magnesia Susp) 30 ml Q12H PRN PO 07/14/17 23:45 08/13/17 23:44 Ondansetron HCl (Zofran Inj) 4 mg Q6H PRN IV 07/14/17 23:45 08/13/17 23:44 Polyethylene (Miralax Powder Packet) 17 gm DAILY PRN PO 07/14/17 23:45 08/13/17 23:44 Aspirin (Ecotrin Tab) 81 mg QAM PO 07/15/17 09:00 08/14/17 08:59 07/17/17 07:59 81 MG Atorvastatin Calcium (Lipitor Tab) 20 mg HS PO 07/15/17 21:00 08/14/17 20:59 07/16/17 20:47 20 MG Levalbuterol (Xopenex 1.25MG/ 3ML Neb) 1.25 mg Q6H PRN INH 07/14/17 23:45 08/13/17 23:44 Metoprolol Succinate (Toprol Xl Tab) 25 mg QAM PO 07/15/17 09:00 08/14/17 08:59 07/17/17 07:59 25 MG Midodrine (Proamatine Tab) 2.5 mg TID@0800,1200,1800 PO 07/15/17 08:00 08/14/17 07:59 07/17/17 07:56 2.5 MG Piperacillin Sod/ Tazobactam Sod 3.375 gm/Dextrose 115 ml @ 28.75 mls/ hr Q8H IV 07/15/17 04:00 07/22/17 03:59 07/17/17 03:50 28.75 MLS/HR Miscellaneous Information (Consult) 1 [facility] PRN N/A 07/14/17 23:45 08/13/17 23:44 Albuterol/ Ipratropium (Duoneb) 3 ml QIDR INH 07/15/17 08:00 08/14/17 07:59 07/17/17 06:55 3 ML Heparin Sodium (Porcine) (Heparin Sq 5000 Unit/0.5ml) 5,000 unit Q8 SQ 07/15/17 06:00 08/14/17 05:59 07/17/17 05:40 5,000 UNIT Enteral Nutritional Formula (Boost Plus Vanilla) 1 can BIDM PO 07/15/17 17:00 08/14/17 16:59 07/17/17 07:55 1 CAN Mirtazapine (Remeron Tab) 7.5 mg HS PO 07/15/17 21:00 08/14/17 20:59 07/16/17 20:47 7.5 MG Potassium Chloride 10 meq/ Prmx 100 ml @ 100 mls/hr Q1H IV 07/17/17 09:30 07/17/17 12:29 07/17/17 09:56 100 MLS/HR Potassium Chloride (Klor-Con Tab) 40 meq BID PO 07/17/17 21:00 08/16/17 20:59 Objective Vital Signs Date Time Temp Pulse Resp B/P (MAP) Pulse Ox O2 Delivery O2 Flow Rate FiO2 07/17/17 06:55 83 16 92 Nasal Cannula 2.0 07/17/17 06:51 37.1 90 18 125/67 (86) 95 Nasal Cannula 2.0 07/17/17 00:00 Nasal Cannula 2.0 07/16/17 23:42 37.0 102 18 133/74 (93) 92 Nasal Cannula 2.0 07/16/17 21:05 105 141/80 (100) 07/16/17 19:18 105 16 98 Nasal Cannula 2.0 07/16/17 17:03 Nasal Cannula 2.0 07/16/17 16:05 90 16 91 Nasal Cannula 2.0 07/16/17 15:14 37.2 87 18 128/79 (95) 96 Nasal Cannula 2.0 07/16/17 11:55 37.0 88 18 121/70 (87) 97 Nasal Cannula 2.0 07/16/17 11:11 80 16 96 Nasal Cannula 2.0 Physical Exam General Appearance: WD/WN, no apparent distress, + cachetic Eyes: normal inspection, PERRL ENT: hearing grossly normal Neck: supple, no JVD Respiratory/Chest: lungs clear, normal breath sounds, no respiratory distress Cardiovascular: regular rate, rhythm, no murmur Abdomen: normal bowel sounds, non tender, soft Extremities: non-tender, no pedal edema Neurologic/Psychiatric: alert, normal mood/affect, oriented x 3 Skin: no rash Laboratory Results Last 24 Hours Test 07/17/17 07:10 White Blood Count 10.36 K/uL Red Blood Count 3.94 M/uL Hemoglobin 10.2 g/dL Hematocrit 33.1 % Mean Corpuscular Volume 84.0 fL Mean Corpuscular Hemoglobin 25.9 pg Mean Corpuscular Hemoglobin Concent 30.8 g/dl Platelet Count 259 K/uL Mean Platelet Volume 9.5 fL Neutrophils (%) (Auto) 73.1 % Lymphocytes (%) (Auto) 10.3 % Monocytes (%) (Auto) 15.8 % Eosinophils (%) (Auto) 0.4 % Basophils (%) (Auto) 0.1 % Neutrophils # (Auto) 7.57 K/uL Lymphocytes # (Auto) 1.07 K/uL Monocytes # (Auto) 1.64 K/uL Eosinophils # (Auto) 0.04 K/uL Basophils # (Auto) 0.01 K/uL RDW Standard Deviation 46.1 fL RDW Coefficient of Variation 14.8 % Immature Granulocyte % (Auto) 0.3 % Immature Granulocyte # (Auto) 0.03 K/uL Sodium Level 140 mmol/L Potassium Level 3.2 mmol/L Chloride Level 102 mmol/L Carbon Dioxide Level 33 mmol/L Anion Gap 5.0 mmol/L Blood Urea Nitrogen 12 mg/dl Creatinine 0.46 mg/dl Est Creatinine Clear Calc Drug Dose 62.9 ml/min Estimated GFR () 111.2 Estimated GFR (Non- 96.0 BUN/Creatinine Ratio 25.7 Random Glucose 110 mg/dl Calcium Level 8.2 mg/dl Total Bilirubin 0.4 mg/dl Aspartate Amino Transf (AST/SGOT) 22 U/L Alanine Aminotransferase (ALT/SGPT) 19 U/L Alkaline Phosphatase 133 U/L Total Protein 6.9 gm/dl Albumin 1.5 gm/dl Globulin 5.4 gm/dl Albumin/Globulin Ratio 0.3 Assessment and Plan 77 yo F w/chronic aspiration since CVA who presents with recurrent aspiration pneumonia and cachexia. Acute hypoxic respiratory failure - Continue nasal cannula O2, was 82% on admission, now above 90% with 2L - Duonebs regularly and PRN Sepsis from aspiration pneumonia - Received broad spectrum abx and fluids, Lactate was elevated then decreased - Continue Zosyn IV TID, stopped Vanco since was likely a contaminant - Stopped PO Flagyl per new IDSA guidelines/discussion with pharmacy - Appreciate speech recommendations, Diet is honey thickened/regular foods and she seems to be tolerating this Hyperglobulinemia - Globulin level 7.4 - W/slight anemia as well. Will await to see if we decide to pursue a more palliative route or can have further workup as outpatient Severe protein-calorie malnutrition - Appreciate nutrition recommendations - continue Boost and thickened liquids Low mood - Started on Mirtazapine 7.5mg qHS, tolerating this well, will increase to 15mg Hypokalemia - Did not tolerate IV replacement Asthma - Continue home Xopenex CVA/ HLD/ HTN/ CAD - Continue home Aspirin - Continue home Lipitor - Continue home Metoprolol and Midodrine <-- Unable to find any evidence of why is on both of these medications. Going to stop midodrine today to evaluate her BP while off this. VTE: Heparin Dispo: Awaiting DC disposition, likely SNF Code status: DNR Resident Physician Supervision Note: I interviewed and examined the patient. Discussed with Dr. Marques and agree with findings and plan as documented in the note. Any exceptions or clarifications are listed here: None Patient is in no additional distress about her usual state she still has a cough productive of occasional sputum she is markedly weak apparently she is in agreement to go to halfway facility she does however still have some low potassium Vital signs temp 37 1 pulse 83 respiratory 18 BP 125/67 her cardiac exam is regular her lungs have decreased breath sounds at the bases with some rhonchi This patient is weak and in a debilitated state I believe a halfway facility placement would be the best for her to continue to reinforce her aspiration precautions and thickened liquids Documented By: Elmer Baker Resident Tracking Resident Involvement: Resident Care Provided Care Provided: Adult Hospital Medicine
[2017-07-17] MEDS ORDERED: NURSING VERBAL MED ORDER ONE (19:15)
[2017-07-17] MEDS: POTASSIUM CHLORIDE 20 MEQ TABCR PO SCH (20:37)
[2017-07-17] MEDS: ATORVASTATIN 20 MG TAB PO SCH (20:38)
[2017-07-17] MEDS: MIRTAZAPINE TAB 15 MG TAB PO SCH (20:38)
[2017-07-18] VITALS (11 sets, daily range): BP systolic 132–163; BP diastolic 68–94; PULSE 78–118; TEMP 36.4–37.3; O2SAT 89–100
[2017-07-18] MEDS: PIPERACILL/TAZOBAC IV 3.375 GM in DEXTROSE 5% 100ML 100 ML IV SCH ×2 (04:26→11:48)
[2017-07-18] MEDS: HEPARIN SOD 5000 UNIT/0.5 ML CARP SQ SCH ×3 (05:42→21:19)
[2017-07-18] MEDS: ALBUT/IPRATROP 3MG/0.5MG NEB 3 ML VIAL INH SCH ×5 (07:18→19:49)
[2017-07-18 07:53] LABS: BASO % 0.1 %; BASO ABS # 0.01 K/uL (0-0.2); EOS % 0.9 %; HEMATOCRIT 33.7 % (37-47); HEMOGLOBIN 10.5 g/dL (12.0-16.0); IG# 0.03 K/uL (0.00-0.02); LYMPH % 10.4 %; LYMPH ABS # 1.12 K/uL (1.2-3.4); MEAN CORPUSCULAR HEMOGLOBIN 26.2 pg (25-34); MEAN CORPUSCULAR HGB CONC 31.2 g/dl (32-36); MEAN PLATELET VOLUME 9.9 fL (7.4-10.4); MONO % 12.9 %; MONO ABS # 1.39 K/uL (0.11-0.59); NEUT % 75.4 %; NEUT ABS # 8.13 K/uL (1.4-6.5); PLATELET COUNT 286 K/uL (130-400); RED CELL DISTRIBUTION WIDTH CV 14.9 % (11.5-14.5); RED CELL DISTRIBUTION WIDTH SD 46.3 fL (36.4-46.3); WHITE BLOOD COUNT 10.78 K/uL (4.8-10.8)
[2017-07-18] MEDS: BOOST PLUS VANILLA PO SCH ×2 (08:00→17:00)
[2017-07-18 08:29] LABS: ALBUMIN 1.5 gm/dl (3.4-5.0); CALCIUM 8.7 mg/dl (8.5-10.1); CREATININE 0.44 mg/dl (0.60-1.20); POTASSIUM 4.1 mmol/L (3.5-5.1)
[2017-07-18] MEDS: ASPIRIN 81 MG ECTAB PO SCH (09:22)
[2017-07-18] MEDS: METOPROLOL SUCC 25MG EXT REL TAB PO SCH (09:23)
[2017-07-18] MEDS: POTASSIUM CHLORIDE 20 MEQ TABCR PO SCH ×2 (09:23→21:19)
[2017-07-18] MEDS ORDERED: MRLP17X PO (14:03)
[2017-07-18] MEDS ORDERED: NUTR-977 PO (14:03)
[2017-07-18] MEDS ORDERED: AMOX1TAB43 PO (14:03)
--- NOTE | 2017-07-18 14:06 | Discharge Instructions ---
Discharge Instructions Date of Service Jul 18, 2017. Admission Reason for Admission: Acute Respiratory Failure With Hypoxia, Aspiration Discharge Discharge Diagnosis / Problem: Aspiration PNA Discharge Goals Goal(s): Improve disease control Activity Recommendations Activity Level: Assistance Required Therapies: Speech Therapy Lifting Limitations: no more than 5 pounds Exercise/Sports Limitations: as tolerated . Additional Information Patient informed of condition: Yes Advance Directives: Yes DNR: Yes Level of Care: Acute Rehab Communicable Disease: No Prognosis: Improving Tsai Catheter: No Instructions / Follow-Up Instructions / Follow-Up Alla was admitted for aspiration pneumonia. She tolerated 3 days of Zosyn IV and is now being transitioned to Augmentin. At home she was not able to access food well during the day and she was not complying with her thickened liquid diet. She has been working with speech therapy to improve this. She was agreeable to go to rehab for a short term to get stronger but ultimately wishes to return home. Current Hospital Diet Patient's current hospital diet: Regular Diet Discharge Diet Recommended Diet: Regular Diet Liquid Consistency: Honey Thick Pending Studies Studies pending at discharge: no Medical Emergencies . Who to Call and When: Medical Emergencies: If at any time you feel your situation is an emergency, please call 911 immediately. . Non-Emergent Contact Non-Emergency issues call your: Primary Care Provider . . "Provider Documentation" section prepared by Evie Marques. . Core Measure Problem Core Measures: None
--- NOTE | 2017-07-18 14:19 | Discharge Summary ---
Discharge Summary Date of Service Jul 18, 2017. Discharge Summary Admission Date: Jul 14, 2017 at 23:59 Discharge Date: Jul 18, 2017 Discharge Disposition: [facility] facility Principal Diagnosis: Aspiration pneumonia Problems/Secondary Diagnoses: Hx of stroke, Dysphagia, Chronic aspiration Immunizations: Have You Had Influenza Vaccine: No History of Tetanus Vaccine?: Yes History of Pneumococcal: Yes Pneumococcal Date: Feb 20, 2006 History of Hepatitis B Vaccine: No Consultations: Speech Therapy -- pt requires honey thickened feeds Medication Reconciliation New Medications: Amoxicillin & Pot Clavulanate (Amoxicillin/Clavulanate P) 1 Tab Tab 875 MG PO BIDM for 3 Days, #6 TAB Enteral Nutrition Formula (Ensure Plus Vanilla) 1 Can Liqd 1 CAN PO BIDM for 30 Days, #30 Polyethylene (Miralax) 17 Gm Pow 17 GM PO DAILY PRN for Constipation for 30 Days, #30 Continued Medications: Aspirin (Aspirin Ec) 81 Mg Tab 81 MG PO QAM Atorvastatin (Lipitor) 20 Mg Tab 20 MG PO HS, TAB Levalbuterol Hcl (Levalbuterol Hcl) 1.25 Mg/3 Ml Neb 1.25 MG NEB Q6H PRN for SOB/Wheezing Metoprolol Succ (Toprol Xl) (Toprol-Xl) 25 Mg Tabcr 25 MG PO QAM, TAB Discontinued Medications: Ciprofloxacin Tab (Cipro) Unknown Strength Tab 1 TAB PO Q12, TAB PRESCRIBED 07/10/2017, TAKE DIRECTED UNTIL GONE Midodrine (Midodrine HCl) 2.5 Mg Tab 2.5 MG PO TID TAKE THIS MEDICATION AT 0800,1200 AND 1700 HOURS Discharge Exam Review of Systems: Constitutional: No fever, No chills, No sweats Eyes: No worsening of vision, No eye pain ENT: No hearing loss Respiratory: No sputum, No wheezing, No shortness of breath, No dyspnea on exertion Cardiovascular: No chest pain, No orthopnea Abdomen: No pain, No nausea, No vomiting Musculoskeletal: No joint pain, No muscle pain Genitourinary - Female: No dysuria, No urinary frequency, No hematuria Neurologic: No memory loss, No paralysis, No weakness Psychiatric: No depression symptoms Endocrine: No fatigue Hematologic / Lymphatic: No abnormal bleeding/bruising Integumentary: No rash Physical Exam: General Appearance: WD/WN, no apparent distress, + cachetic, + thin Eyes: normal inspection, PERRL ENT: hearing grossly normal Neck: supple, no JVD Respiratory/Chest: lungs clear, normal breath sounds, no respiratory distress Cardiovascular: regular rate, rhythm, no murmur, normal peripheral pulses Abdomen / GI: normal bowel sounds, non tender, soft Extremities: no calf tenderness, no pedal edema Neurologic/Psychiatric: alert, normal mood/affect, normal reflexes, oriented x 3 Skin: no rash Hospital Course HPI: Patient is a 77 year old female with a pmh of CVA with chronic aspiration pneumonia, CAD, Asthma, HTN and HLD that presents with a 4 day history of worsening cough and shortness of breath. The patient was seen by her PCP for similar complaints 4 days ago and was started on a course of Ciprofloxacin. The patient has continued to have a worsening productive cough and shortness of breath since along with intermittent fevers. The patient has been followed by speech therapy as an outpatient for chronic aspiration since last year, but the patient is non compliant with her thickened feeds and explicit dietary instructions. The patient currently lives at home although spend most of her time in bed. The patient is not on home oxygen but is currently requiring 4L in the ED. Patient is also DNR/DNI after her last visit. HOSPITAL COURSE: 77 yo F w/chronic aspiration since CVA who presents with recurrent aspiration pneumonia and cachexia. Acute hypoxic respiratory failure - Duonebs regularly and PRN - Continue O2 at 2L NC Sepsis from aspiration pneumonia - Received broad spectrum abx and fluids, Lactate was elevated then decreased - Received 4 days of Zosyn IV TID, stopped Vanco since was likely a contaminant , will continue w/Augmentin x 3 days - Appreciate speech recommendations, Diet is honey thickened/regular foods and she seems to be tolerating this Hyperglobulinemia - Globulin level 7.4 - W/slight anemia as well - If she makes a great improvement would consider working this up as an outpatient. Workup so far negative. Severe protein-calorie malnutrition - Appreciate nutrition recommendations - Continue Boost and thickened liquids Low mood - Started on Mirtazapine 7.5mg qHS during admission, tolerating this well, will increase to 15mg Hypokalemia - Did not tolerate IV replacement, given PO Asthma - Continue home Xopenex CVA/ HLD/ HTN/ CAD - Continue home Aspirin - Continue home Lipitor - Stopped home midodrine, continued metoprolol VTE: Heparin Dispo: DC to [facility] Code status: DNR Total Time Spent: Greater than 30 minutes This includes examination of the patient, discharge planning, medication reconciliation, and communication with other providers. Discharge Instructions Please refer to the electronic Patient Visit Report (Discharge Instructions) for additional information. Additional Copies To [facility] Resident Tracking Resident Involvement: Resident Care Provided Care Provided: Adult Hospital Medicine
[2017-07-18] MEDS ORDERED: RMR15 PO (15:56)
[2017-07-18] MEDS: AMOXICILLIN/CLAVULANATE TAB 875 MG TAB PO SCH ×2 (17:00→17:24)
--- NOTE | 2017-07-18 18:08 | Family Medicine Progress Note ---
Progress Note Date of Service Jul 18, 2017. Subjective Pt evaluation today including: conversation w/ patient Pt was ready for DC to [facility] but then when being turned choked on her secretions and required upto 6L to bring sats to 90%. She reports increased cough and when speaking sats go to 92%. She was given a Xopenex neb which helped somewhat but not significantly. Constitutional: No fever, No chills Eyes: No worsening of vision Respiratory: + cough, + dyspnea at rest All Other Systems: Reviewed and Negative Medications Current Inpatient Medications Medications (Trade) Dose Ordered Sig/Irene Route Start Time Stop Time Status Last Admin Dose Admin Acetaminophen (Tylenol Tab) 650 mg Q4H PRN PO 07/14/17 23:45 08/13/17 23:44 Magnesium Hydroxide (Milk Of Magnesia Susp) 30 ml Q12H PRN PO 07/14/17 23:45 08/13/17 23:44 Ondansetron HCl (Zofran Inj) 4 mg Q6H PRN IV 07/14/17 23:45 08/13/17 23:44 Polyethylene (Miralax Powder Packet) 17 gm DAILY PRN PO 07/14/17 23:45 08/13/17 23:44 Aspirin (Ecotrin Tab) 81 mg QAM PO 07/15/17 09:00 08/14/17 08:59 07/18/17 09:22 81 MG Atorvastatin Calcium (Lipitor Tab) 20 mg HS PO 07/15/17 21:00 08/14/17 20:59 07/17/17 20:38 20 MG Levalbuterol (Xopenex 1.25MG/ 3ML Neb) 1.25 mg Q6H PRN INH 07/14/17 23:45 08/13/17 23:44 Metoprolol Succinate (Toprol Xl Tab) 25 mg QAM PO 07/15/17 09:00 08/14/17 08:59 07/18/17 09:23 25 MG Albuterol/ Ipratropium (Duoneb) 3 ml QIDR INH 07/15/17 08:00 08/14/17 07:59 07/18/17 17:47 3 ML Heparin Sodium (Porcine) (Heparin Sq 5000 Unit/0.5ml) 5,000 unit Q8 SQ 07/15/17 06:00 08/14/17 05:59 07/18/17 05:42 5,000 UNIT Enteral Nutritional Formula (Boost Plus Vanilla) 1 can BIDM PO 07/15/17 17:00 08/14/17 16:59 07/18/17 08:00 1 CAN Potassium Chloride (Klor-Con Tab) 40 meq BID PO 07/17/17 21:00 08/16/17 20:59 07/18/17 09:23 40 MEQ Mirtazapine (Remeron Tab) 15 mg HS PO 07/17/17 21:00 08/16/17 20:59 07/17/17 20:38 15 MG Amoxicillin/ Clavulanate Potassium (Augmentin Tab) 875 mg BIDM PO 07/18/17 17:00 07/21/17 16:59 Objective Vital Signs Date Time Temp Pulse Resp B/P (MAP) Pulse Ox O2 Delivery O2 Flow Rate FiO2 07/18/17 17:47 107 28 92 Nasal Cannula 6.0 07/18/17 17:38 108 26 149/94 (112) 93 Nasal Cannula 6.0 Humidified Air 07/18/17 16:00 Nasal Cannula 07/18/17 14:39 102 18 90 Nasal Cannula 3.0 07/18/17 14:23 36.8 108 20 132/79 (96) 91 Room Air 07/18/17 12:18 36.4 78 18 92 Nasal Cannula 07/18/17 11:13 78 18 92 Nasal Cannula 3.0 07/18/17 08:00 Nasal Cannula 07/18/17 07:19 87 18 98 Nasal Cannula 3.0 07/18/17 07:05 36.4 89 20 132/72 (92) 100 Room Air 07/18/17 00:00 Nasal Cannula 2.0 07/17/17 23:13 37.6 112 16 152/76 (101) 95 Nasal Cannula 2.0 07/17/17 19:15 Nasal Cannula 2.0 07/17/17 19:06 89 16 Nasal Cannula 3.0 Physical Exam General Appearance: WD/WN, no apparent distress Eyes: normal inspection, PERRL ENT: hearing grossly normal Neck: supple, no JVD Respiratory/Chest: lungs clear, normal breath sounds, no respiratory distress Cardiovascular: regular rate, rhythm, no murmur Abdomen: normal bowel sounds, non tender, soft Extremities: non-tender, no pedal edema Neurologic/Psychiatric: alert, normal mood/affect, oriented x 3 Skin: no rash Laboratory Results Last 24 Hours Test 07/18/17 06:49 White Blood Count 10.78 K/uL Red Blood Count 4.01 M/uL Hemoglobin 10.5 g/dL Hematocrit 33.7 % Mean Corpuscular Volume 84.0 fL Mean Corpuscular Hemoglobin 26.2 pg Mean Corpuscular Hemoglobin Concent 31.2 g/dl Platelet Count 286 K/uL Mean Platelet Volume 9.9 fL Neutrophils (%) (Auto) 75.4 % Lymphocytes (%) (Auto) 10.4 % Monocytes (%) (Auto) 12.9 % Eosinophils (%) (Auto) 0.9 % Basophils (%) (Auto) 0.1 % Neutrophils # (Auto) 8.13 K/uL Lymphocytes # (Auto) 1.12 K/uL Monocytes # (Auto) 1.39 K/uL Eosinophils # (Auto) 0.10 K/uL Basophils # (Auto) 0.01 K/uL RDW Standard Deviation 46.3 fL RDW Coefficient of Variation 14.9 % Immature Granulocyte % (Auto) 0.3 % Immature Granulocyte # (Auto) 0.03 K/uL Sodium Level 139 mmol/L Potassium Level 4.1 mmol/L Chloride Level 101 mmol/L Carbon Dioxide Level 34 mmol/L Anion Gap 4.0 mmol/L Blood Urea Nitrogen 10 mg/dl Creatinine 0.44 mg/dl Est Creatinine Clear Calc Drug Dose 65.8 ml/min Estimated GFR () 112.8 Estimated GFR (Non- 97.4 BUN/Creatinine Ratio 22.4 Random Glucose 113 mg/dl Calcium Level 8.7 mg/dl Total Bilirubin 0.3 mg/dl Aspartate Amino Transf (AST/SGOT) 27 U/L Alanine Aminotransferase (ALT/SGPT) 21 U/L Alkaline Phosphatase 146 U/L Total Protein 7.0 gm/dl Albumin 1.5 gm/dl Globulin 5.5 gm/dl Albumin/Globulin Ratio 0.3 Assessment and Plan 77 yo F w/chronic aspiration since CVA who presents with recurrent aspiration pneumonia and cachexia. Acute hypoxic respiratory failure - Duonebs regularly and PRN - Continue O2 at 2L NC Sepsis from aspiration pneumonia - Received broad spectrum abx and fluids, Lactate was elevated then decreased - Received 4 days of Zosyn IV TID, stopped Vanco since was likely a contaminant , will continue w/Augmentin x 3 days - Appreciate speech recommendations, Diet is honey thickened/regular foods and she seems to be tolerating this Hyperglobulinemia - Globulin level 7.4 - W/slight anemia as well - If she makes a great improvement would consider working this up as an outpatient. Workup so far negative. Severe protein-calorie malnutrition - Appreciate nutrition recommendations - Continue Boost and thickened liquids Low mood - Started on Mirtazapine 7.5mg qHS during admission, tolerating this well, will increase to 15mg Hypokalemia - Did not tolerate IV replacement, given PO Asthma - Continue home Xopenex CVA/ HLD/ HTN/ CAD - Continue home Aspirin - Continue home Lipitor - Stopped home midodrine, continued metoprolol VTE: Heparin Dispo: DC to [facility] tomorrow AM if all well Code status: DNR Resident Tracking Resident Involvement: Resident Care Provided Care Provided: Adult Hospital Medicine
[2017-07-18] MEDS: ATORVASTATIN 20 MG TAB PO SCH (21:19)
[2017-07-18] MEDS: MIRTAZAPINE TAB 15 MG TAB PO SCH (21:19)
[2017-07-19] VITALS (7 sets, daily range): BP systolic 103–142; BP diastolic 67–80; PULSE 70–113; TEMP 36.7–37.1; O2SAT 90–96
[2017-07-19] MEDS: HEPARIN SOD 5000 UNIT/0.5 ML CARP SQ SCH ×3 (06:35→21:36)
[2017-07-19] MEDS: ALBUT/IPRATROP 3MG/0.5MG NEB 3 ML VIAL INH SCH ×4 (07:00→20:00)
[2017-07-19] MEDS: AMOXICILLIN/CLAVULANATE TAB 875 MG TAB PO SCH (08:05)
[2017-07-19] MEDS: ASPIRIN 81 MG ECTAB PO SCH (08:05)
[2017-07-19] MEDS: POTASSIUM CHLORIDE 20 MEQ TABCR PO SCH ×2 (08:05→20:02)
[2017-07-19] MEDS: BOOST PLUS VANILLA PO SCH ×2 (08:05→17:47)
[2017-07-19] MEDS: METOPROLOL SUCC 25MG EXT REL TAB PO SCH (08:05)
--- NOTE | 2017-07-19 11:08 | DIAGNOSTIC IMAGING REPORT ---
CHEST ONE VIEW PORTABLE HISTORY: 77 years-old Female hypoxia acute hypoxia COMPARISON: Chest radiograph 07/14/2017 TECHNIQUE: Portable AP view of the chest FINDINGS: Exam is limited secondary to patient positioning with rotation and side bending to the left. Cardiac silhouette is again enlarged. There is progressive interstitial coarsening bilaterally suggesting pulmonary edema with worsened left lung and right perihilar and right lung base alveolar opacities. Moderate left and small right pleural effusions have also increased in the interval. There is no pneumothorax identified. Atherosclerosis of the aorta. The bones appear demineralized. Degenerative changes are noted within the spine. IMPRESSION: 1. Limited study secondary to positioning. 2. Cardiomegaly with mild pulmonary edema and progressively worsened left lung, right perihilar and right lung base alveolar opacities suggesting admixture of atelectasis and alveolar pulmonary edema or pneumonia. 3. Moderate left and small right pleural effusions have also increased in the interval. The above report was generated using voice recognition software. It may contain grammatical, syntax or spelling errors. Electronically signed by: Donaldo Forbes M.D. 07/19/2017 11:07 AM Dictated Date/Time: 07/19/2017 11:03 AM
[2017-07-19] MEDS: METRONIDAZOLE / NSS 500 MG in PREMIXED NSS 100 ML IV SCH ×2 (13:32→21:38)
--- NOTE | 2017-07-19 14:40 | Family Medicine Progress Note ---
Progress Note Date of Service Jul 19, 2017. Subjective Pt evaluation today including: conversation w/ patient, physical exam, chart review, lab review, review of studies, review of inpatient medication list Pain: 0 PO Intake: poor Patient has a continued increased O2 requirement of 6 L as well as significant dyspnea at rest. Otherwise no complaints Constitutional: No fever Eyes: No worsening of vision ENT: No hearing loss Respiratory: + shortness of breath, + dyspnea on exertion, + dyspnea at rest , No cough, No sputum, No wheezing Cardiovascular: No chest pain Abdomen: + problem reported (poor appetite ), No pain, No nausea, No vomiting, No diarrhea, No constipation Musculoskeletal: No joint pain, No muscle pain Neurologic: + weakness, No balance problems Endo: + fatigue Medications Medications Administered Medications (Trade) Dose Ordered Sig/Irene Route Start Time Stop Time Status Last Admin Dose Admin Albuterol/ Ipratropium (Duoneb) 3 ml NOW STAT INH 07/14/17 20:49 07/14/17 20:52 DC 07/14/17 20:59 3 ML Piperacillin Sod/ Tazobactam Sod (Zosyn Iv) 3.375 gm NOW STAT IV 07/14/17 22:01 07/14/17 22:05 DC 07/14/17 22:42 3.375 GM Levofloxacin (Levaquin / D5W) 500 mg NOW ONCE IV 07/14/17 22:15 07/14/17 22:16 DC 07/14/17 22:09 500 MG Sodium Chloride 1,000 ml @ 999 mls/hr Q1H1M STAT IV 07/14/17 22:09 07/14/17 23:09 DC 07/14/17 22:12 999 MLS/HR Sodium Chloride 1,000 ml @ 60 mls/hr [id number] IV 07/15/17 01:00 07/16/17 17:56 DC 07/16/17 17:49 60 MLS/HR Aspirin (Ecotrin Tab) 81 mg QAM PO 07/15/17 09:00 08/14/17 08:59 07/19/17 08:05 81 MG Atorvastatin Calcium (Lipitor Tab) 20 mg HS PO 07/15/17 21:00 08/14/17 20:59 07/18/17 21:19 20 MG Metoprolol Succinate (Toprol Xl Tab) 25 mg QAM PO 07/15/17 09:00 08/14/17 08:59 07/19/17 08:05 25 MG Midodrine (Proamatine Tab) 2.5 mg TID@0800,1200,1800 PO 07/15/17 08:00 07/17/17 10:56 DC 07/17/17 07:56 2.5 MG Piperacillin Sod/ Tazobactam Sod 3.375 gm/Dextrose 115 ml @ 28.75 mls/ hr Q8H IV 07/15/17 04:00 07/18/17 12:22 DC 07/18/17 11:48 28.75 MLS/HR Albuterol/ Ipratropium (Duoneb) 3 ml QIDR INH 07/15/17 08:00 08/14/17 07:59 07/19/17 11:08 3 ML Metronidazole (Flagyl Tab) 500 mg BID PO 07/15/17 09:00 07/15/17 12:46 DC 07/15/17 07:56 500 MG Heparin Sodium (Porcine) (Heparin Sq 5000 Unit/0.5ml) 5,000 unit Q8 SQ 07/15/17 06:00 08/14/17 05:59 07/19/17 13:33 5,000 UNIT Enteral Nutritional Formula (Boost Plus Vanilla) 1 can BIDM PO 07/15/17 17:00 08/14/17 16:59 07/19/17 08:05 1 CAN Mirtazapine (Remeron Tab) 7.5 mg HS PO 07/15/17 21:00 07/17/17 10:57 DC 07/16/17 20:47 7.5 MG Vancomycin HCl 750 mg/Sodium Chloride 265 ml @ 125 mls/hr NOW ONCE IV 07/15/17 20:00 07/16/17 12:19 DC 07/15/17 20:38 125 MLS/HR Potassium Chloride 10 meq/ Prmx 100 ml @ 100 mls/hr Q1H IV 07/17/17 09:30 07/17/17 10:57 DC 07/17/17 09:56 100 MLS/HR Potassium Chloride (Klor-Con Tab) 40 meq NOW ONCE PO 07/17/17 10:30 07/17/17 10:31 DC 07/17/17 10:46 40 MEQ Potassium Chloride (Klor-Con Tab) 40 meq BID PO 07/17/17 21:00 08/16/17 20:59 07/19/17 08:05 40 MEQ Mirtazapine (Remeron Tab) 15 mg HS PO 07/17/17 21:00 08/16/17 20:59 07/18/17 21:19 15 MG Diphenhydramine HCl (Benadryl Cap) 25 mg ONE ONCE PO 07/17/17 19:15 07/17/17 19:16 DC 07/17/17 20:37 25 MG Amoxicillin/ Clavulanate Potassium (Augmentin Tab) 875 mg BIDM PO 07/18/17 17:00 07/19/17 11:36 DC 07/19/17 08:05 875 MG Metronidazole 500 mg/Prmx 100 ml @ 100 mls/hr Q8H IV 07/19/17 14:00 07/26/17 13:59 07/19/17 13:32 100 MLS/HR Objective Vital Signs Date Time Temp Pulse Resp B/P (MAP) Pulse Ox O2 Delivery O2 Flow Rate FiO2 07/19/17 11:09 74 16 96 Nasal Cannula 6.0 07/19/17 08:25 36.7 70 24 142/80 (100) 90 Humidified Oxygen 6.0 07/19/17 08:00 Nasal Cannula 6.0 07/19/17 07:01 72 16 93 Nasal Cannula 6.0 07/19/17 00:00 Nasal Cannula 6.0 07/18/17 23:28 37.3 118 16 163/68 (99) 92 Nasal Cannula 6.0 07/18/17 19:49 101 18 91 Nasal Cannula 6.0 07/18/17 18:45 89 Nasal Cannula 6.0 07/18/17 17:47 107 28 92 Nasal Cannula 6.0 07/18/17 17:38 108 26 149/94 (112) 93 Nasal Cannula 6.0 Humidified Air 07/18/17 16:00 Nasal Cannula 07/18/17 14:39 102 18 90 Nasal Cannula 3.0 Physical Exam General Appearance: + mild distress, + cachetic Eyes: normal inspection ENT: normal ENT inspection (with mild right facial droop) Neck: supple Respiratory/Chest: + respiratory distress (mild), + accessory muscle use, + pertinent finding (decreased breath sounds to the left base without wheezing/ crackles ) Cardiovascular: regular rate, rhythm, no murmur Abdomen: normal bowel sounds, non tender, soft Extremities: non-tender, no pedal edema, no calf tenderness Neurologic/Psychiatric: alert Skin: warm/dry, no rash, + pallor Lymphatic: no adenopathy Assessment and Plan 77 yo F w/chronic aspiration since CVA who was admitted for aspiration pneumonia and was pending placement until patient had increased O2 requirements prior to her discharge. Changes on repeat imaging reflected worsening PNA/ progression fluid accumulation. Acute hypoxic respiratory failure secondary to pleural effusions vs progressive PNA vs CHF - O2 per nursing protocol , currently on 6 L - If USG thoracic reflective of significant pleural effusion/ fluid accumulation will consult pulmonary to assess need to complete thoracentesis; there is concern for empyema - restarted IV abx to cefepime and flagyl for anerobic coverage - Continue dietary recommendation of thickened foods however if patient continues to aspirate a possible discussion about hospice may very well be warranted - CBC in am - IVF held Hyperglobulinemia - SPEP reflective of chronic inflammation - Anemia noted as well, could consider outpatient w/u for anemia as hgb stable here Severe protein-calorie malnutrition, FTT? - Appreciate nutrition recommendations - Continue Boost and thickened liquids Depression - Mirtazapine 15 mg initiated during admission Hypokalemia - Did not tolerate IV replacement, given PO Asthma?, unable to find diagnostic PFT - Continue home Xopenex CVA/ HLD/ HTN/ CAD - Continue home Aspirin - Continue home Lipitor - Stopped home midodrine, continued metoprolol DVT prophylaxis heparin Code status: DNR Dispo: was to go to rehab however unlikely considering worsening hypoxia, patient ultimately would fair better at SNF if discharged in future however this would be a continued discussion with family and patient Continued [facility] stay due to: abnormal vital signs, multiple IV medications needed Discharge planning: uncertain
--- NOTE | 2017-07-19 15:43 | DIAGNOSTIC IMAGING REPORT ---
EFFUSION-CHEST/MEDIASTINUM HISTORY: 77 years-old Female increased O2 req acute hypoxia with pleural effusions. COMPARISON: Chest radiograph of same day TECHNIQUE: Multiple real-time sonographic images of the bilateral chest were obtained assessing grayscale appearance FINDINGS: Bilateral pleural effusions are noted, with pleural fluid measuring approximately 10 mL on the right and approximately 71 mL on the left. Bibasilar consolidation is also noted. IMPRESSION: Bilateral pleural effusions, left greater than right as above. The above report was generated using voice recognition software. It may contain grammatical, syntax or spelling errors. Electronically signed by: Donaldo Forbes M.D. 07/19/2017 3:41 PM Dictated Date/Time: 07/19/2017 3:39 PM
[2017-07-19] MEDS: ATORVASTATIN 20 MG TAB PO SCH (20:04)
[2017-07-19] MEDS: CEFEPIME IV 2,000 MG in SYRINGE 7.5 ML IV SCH (20:04)
[2017-07-19] MEDS: MIRTAZAPINE TAB 15 MG TAB PO SCH (20:05)
[2017-07-20] VITALS (7 sets, daily range): BP systolic 133–154; BP diastolic 61–79; PULSE 63–110; TEMP 36.6–37.1; O2SAT 90–98
[2017-07-20] MEDS: METRONIDAZOLE / NSS 500 MG in PREMIXED NSS 100 ML IV SCH ×3 (06:21→21:45)
[2017-07-20] MEDS: HEPARIN SOD 5000 UNIT/0.5 ML CARP SQ SCH ×2 (06:39→18:07)
[2017-07-20] MEDS: ALBUT/IPRATROP 3MG/0.5MG NEB 3 ML VIAL INH SCH ×5 (07:23→20:06)
[2017-07-20] MEDS: POTASSIUM CHLORIDE 20 MEQ TABCR PO SCH (08:05)
[2017-07-20] MEDS: CEFEPIME IV 2,000 MG in SYRINGE 7.5 ML IV SCH ×2 (08:05→20:53)
[2017-07-20] MEDS: METOPROLOL SUCC 25MG EXT REL TAB PO SCH (08:05)
[2017-07-20] MEDS: BOOST PLUS VANILLA PO SCH ×2 (08:05→17:56)
[2017-07-20] MEDS: ASPIRIN 81 MG ECTAB PO SCH (08:05)
[2017-07-20 08:58] LABS: BASO % 0.2 %; BASO ABS # 0.03 K/uL (0-0.2); EOS % 0.1 %; EOS ABS # 0.02 K/uL (0-0.5); HEMATOCRIT 36.1 % (37-47); HEMOGLOBIN 11.3 g/dL (12.0-16.0); IG# 0.08 K/uL (0.00-0.02); LYMPH ABS # 0.92 K/uL (1.2-3.4); MEAN CELL VOLUME 82.8 fL (80-100); MEAN CORPUSCULAR HEMOGLOBIN 25.9 pg (25-34); MEAN CORPUSCULAR HGB CONC 31.3 g/dl (32-36); MEAN PLATELET VOLUME 10.2 fL (7.4-10.4); MONO % 10.3 %; MONO ABS # 1.56 K/uL (0.11-0.59); NEUT % 82.9 %; PLATELET COUNT 278 K/uL (130-400); RED CELL DISTRIBUTION WIDTH CV 14.9 % (11.5-14.5); RED CELL DISTRIBUTION WIDTH SD 45.5 fL (36.4-46.3); WHITE BLOOD COUNT 15.21 K/uL (4.8-10.8)
[2017-07-20 09:45] LABS: CALCIUM 9.1 mg/dl (8.5-10.1); CREATININE 0.48 mg/dl (0.60-1.20); POTASSIUM 4.6 mmol/L (3.5-5.1)
--- NOTE | 2017-07-20 13:12 | Family Medicine Progress Note ---
Progress Note Date of Service Jul 20, 2017. Subjective Pt evaluation today including: conversation w/ patient, conversation w/ family , physical exam, chart review, lab review, review of studies Pain: 0/10 PO Intake: poor Patient states that she feels her breathing has improved today. Denies pain and no concerns. Continues to need 6 l of O2 I discussed the case with her daughter as the patient may very not do well at [facility] considering her current nutritional status and health. We discussed in detail about what aspiration is and that it may very lead to recurrent infection/ admissions. We discussed goals of care for the patient and she notes that the patient's youngest sister whom she raised passed two weeks prior and she has been declining since this time. They are interested in having a family meeting about care options and possibly hospice for this patient tomorrow. I informed case management about their wishes and they will be contacted the patient's family regarding a meeting time. I also informed the daughter that if they wish to speak with a technical applications specialist they should be available tomorrow. Constitutional: No fever Respiratory: + cough, + shortness of breath, No wheezing Cardiovascular: No chest pain Abdomen: No pain, No vomiting Musculoskeletal: No joint pain Female : + incontinence Neurologic: + weakness Endo: + fatigue Medications Medications Administered Medications (Trade) Dose Ordered Sig/Irene Route Start Time Stop Time Status Last Admin Dose Admin Albuterol/ Ipratropium (Duoneb) 3 ml NOW STAT INH 07/14/17 20:49 07/14/17 20:52 DC 07/14/17 20:59 3 ML Piperacillin Sod/ Tazobactam Sod (Zosyn Iv) 3.375 gm NOW STAT IV 07/14/17 22:01 07/14/17 22:05 DC 07/14/17 22:42 3.375 GM Levofloxacin (Levaquin / D5W) 500 mg NOW ONCE IV 07/14/17 22:15 07/14/17 22:16 DC 07/14/17 22:09 500 MG Sodium Chloride 1,000 ml @ 999 mls/hr Q1H1M STAT IV 07/14/17 22:09 07/14/17 23:09 DC 07/14/17 22:12 999 MLS/HR Sodium Chloride 1,000 ml @ 60 mls/hr [id number] IV 07/15/17 01:00 07/16/17 17:56 DC 07/16/17 17:49 60 MLS/HR Aspirin (Ecotrin Tab) 81 mg QAM PO 07/15/17 09:00 08/14/17 08:59 07/20/17 08:05 81 MG Atorvastatin Calcium (Lipitor Tab) 20 mg HS PO 07/15/17 21:00 08/14/17 20:59 07/19/17 20:04 20 MG Metoprolol Succinate (Toprol Xl Tab) 25 mg QAM PO 07/15/17 09:00 08/14/17 08:59 07/20/17 08:05 25 MG Midodrine (Proamatine Tab) 2.5 mg TID@0800,1200,1800 PO 07/15/17 08:00 07/17/17 10:56 DC 07/17/17 07:56 2.5 MG Piperacillin Sod/ Tazobactam Sod 3.375 gm/Dextrose 115 ml @ 28.75 mls/ hr Q8H IV 07/15/17 04:00 07/18/17 12:22 DC 07/18/17 11:48 28.75 MLS/HR Albuterol/ Ipratropium (Duoneb) 3 ml QIDR INH 07/15/17 08:00 08/14/17 07:59 07/20/17 11:27 3 ML Metronidazole (Flagyl Tab) 500 mg BID PO 07/15/17 09:00 07/15/17 12:46 DC 07/15/17 07:56 500 MG Heparin Sodium (Porcine) (Heparin Sq 5000 Unit/0.5ml) 5,000 unit Q8 SQ 07/15/17 06:00 08/14/17 05:59 07/20/17 06:39 5,000 UNIT Enteral Nutritional Formula (Boost Plus Vanilla) 1 can BIDM PO 07/15/17 17:00 08/14/17 16:59 07/20/17 08:05 1 CAN Mirtazapine (Remeron Tab) 7.5 mg HS PO 07/15/17 21:00 07/17/17 10:57 DC 07/16/17 20:47 7.5 MG Vancomycin HCl 750 mg/Sodium Chloride 265 ml @ 125 mls/hr NOW ONCE IV 07/15/17 20:00 07/16/17 12:19 DC 07/15/17 20:38 125 MLS/HR Potassium Chloride 10 meq/ Prmx 100 ml @ 100 mls/hr Q1H IV 07/17/17 09:30 07/17/17 10:57 DC 07/17/17 09:56 100 MLS/HR Potassium Chloride (Klor-Con Tab) 40 meq NOW ONCE PO 07/17/17 10:30 07/17/17 10:31 DC 07/17/17 10:46 40 MEQ Potassium Chloride (Klor-Con Tab) 40 meq BID PO 07/17/17 21:00 07/19/17 14:48 DC 07/19/17 08:05 40 MEQ Mirtazapine (Remeron Tab) 15 mg HS PO 07/17/17 21:00 08/16/17 20:59 07/19/17 20:05 15 MG Diphenhydramine HCl (Benadryl Cap) 25 mg ONE ONCE PO 07/17/17 19:15 07/17/17 19:16 DC 07/17/17 20:37 25 MG Amoxicillin/ Clavulanate Potassium (Augmentin Tab) 875 mg BIDM PO 07/18/17 17:00 07/19/17 11:36 DC 07/19/17 08:05 875 MG Cefepime HCl 2000 mg/Syringe 20 ml @ 5 mls/min Q12H IV 07/19/17 20:00 07/26/17 19:59 07/20/17 08:05 5 MLS/MIN Metronidazole 500 mg/Prmx 100 ml @ 100 mls/hr Q8H IV 07/19/17 14:00 07/26/17 13:59 07/20/17 06:21 100 MLS/HR Potassium Chloride (Klor-Con Tab) 20 meq BID PO 07/19/17 20:00 08/16/17 20:59 Future Hold 07/20/17 08:05 20 MEQ Objective Vital Signs Date Time Temp Pulse Resp B/P (MAP) Pulse Ox O2 Delivery O2 Flow Rate FiO2 07/20/17 11:28 63 16 98 Nasal Cannula 6.0 07/20/17 08:22 37.1 106 16 133/74 (93) 95 6.0 07/20/17 08:00 Nasal Cannula 6.0 07/20/17 07:25 107 16 90 Nasal Cannula 6.0 07/20/17 00:30 Nasal Cannula 6.0 Humidified Oxygen 07/19/17 22:24 37.0 113 18 138/74 (95) 95 Nasal Cannula 6.0 Humidified Oxygen 07/19/17 16:00 95 Room Air 07/19/17 15:45 37.1 108 20 127/67 (87) 95 Nasal Cannula 3.0 07/19/17 14:48 80 16 94 Nasal Cannula 3.0 Physical Exam General Appearance: no apparent distress, + cachetic Eyes: normal inspection ENT: normal ENT inspection Neck: no JVD Respiratory/Chest: + decreased breath sounds (bilat bases L>R ), + crackles ( occasional crackle to the bases) Cardiovascular: regular rate, rhythm, no murmur Abdomen: normal bowel sounds, non tender, soft Extremities: normal inspection Neurologic/Psychiatric: alert Skin: warm/dry, no rash, + pallor Laboratory Results Results Past 24 Hours Test 07/20/17 08:26 Range/Units White Blood Count 15.21 4.8-10.8 K/uL Red Blood Count 4.36 4.2-5.4 M/uL Hemoglobin 11.3 12.0-16.0 g/dL Hematocrit 36.1 37-47 % Mean Corpuscular Volume 82.8 80-100 fL Mean Corpuscular Hemoglobin 25.9 25-34 pg Mean Corpuscular Hemoglobin Concent 31.3 32-36 g/dl Platelet Count 278 130-400 K/uL Mean Platelet Volume 10.2 7.4-10.4 fL Neutrophils (%) (Auto) 82.9 % Lymphocytes (%) (Auto) 6.0 % Monocytes (%) (Auto) 10.3 % Eosinophils (%) (Auto) 0.1 % Basophils (%) (Auto) 0.2 % Neutrophils # (Auto) 12.60 1.4-6.5 K/uL Lymphocytes # (Auto) 0.92 1.2-3.4 K/uL Monocytes # (Auto) 1.56 0.11-0.59 K/uL Eosinophils # (Auto) 0.02 0-0.5 K/uL Basophils # (Auto) 0.03 0-0.2 K/uL RDW Standard Deviation 45.5 36.4-46.3 fL RDW Coefficient of Variation 14.9 11.5-14.5 % Immature Granulocyte % (Auto) 0.5 % Immature Granulocyte # (Auto) 0.08 0.00-0.02 K/uL Sodium Level 138 136-145 mmol/L Potassium Level 4.6 3.5-5.1 mmol/L Chloride Level 101 98-107 mmol/L Carbon Dioxide Level 30 21-32 mmol/L Anion Gap 7.0 3-11 mmol/L Blood Urea Nitrogen 16 7-18 mg/dl Creatinine 0.48 0.60-1.20 mg/dl Est Creatinine Clear Calc Drug Dose 60.3 ml/min Estimated GFR () 109.7 Estimated GFR (Non- 94.6 BUN/Creatinine Ratio 33.6 10-20 Random Glucose 133 70-99 mg/dl Calcium Level 9.1 8.5-10.1 mg/dl Assessment and Plan 77 yo F w/chronic aspiration since CVA who was admitted for aspiration pneumonia and was pending placement until patient had increased O2 requirements prior to her discharge. Changes on repeat imaging reflected worsening PNA/ progression fluid accumulation. Acute hypoxic respiratory failure secondary recurrent aspiration PNA - O2 per nursing protocol , currently on 6 L - no significant pleural euffsion noted for thoracentesis, consolidation noted - Continue Cefepime and Flagyl; leukocytosis noted today most likely from recurrent PNA, clinically improving so will defer addition of vanco - Continue dietary recommendation of thickened foods - CBC in am - As discussed, with recurrent aspiration patient is at very high risk for recurrent infections; tentatively there will be a family meeting with case management tomorrow however not yet confirmed, Palliative care consult offered; they will request tomorrow if interested Hyperglobulinemia,anemia- stable - SPEP reflective of chronic inflammation Severe protein-calorie malnutrition, FTT - Appreciate nutrition recommendations - Continue Boost and thickened liquids Depression - Mirtazapine 15 mg initiated during admission and continued Hypokalemia - Did not tolerate IV replacement, given PO - repleted so will hold daily K supplements Asthma?, unable to find diagnostic PFT - Continue home Xopenex CVA/ HLD/ HTN/ CAD - Continue home Aspirin - Continue home Lipitor - Stopped home midodrine, continued metoprolol DVT prophylaxis heparin decreased to BID Code status: DNR Dispo: Patient is not a candidate for acute rehab at this time. Patient may very well benefit from hospice considering recurrent aspirations, this will be discussed further with family tomorrow and a plan developed for dispo Resident Physician Supervision Note: I interviewed and examined the patient. Discussed with Dr. Carrasco and agree with findings and plan as documented in the note. Any exceptions or clarifications are listed here: None This patient actually is somewhat improved from yesterday being more visibly awake and alert there is some discussion with family about possible palliative care given the persistent and chronic nature of her aspiration she seemed to improve with change of antibiotics. Her evaluation of her left effusion did not seem that this was significant enough to perform it for centesis to evaluate for empyema and certainly her clinical improvement also suggest that this is not an active case Vital signs are temperature 37 pulse 107 respiration 18 BP 130/74 her cardiac exam is regular her lungs are diminished at the left base likely due to her kyphoscoliosis and likely atelectasis she is awake and oriented Aspiration pneumonia will continue gram-negative anaerobic coverage using metronidazole and a cephalosporin. Will continue to reinforce aspiration precautions and thickened liquids will have discussion with family about palliative care and whether this patient is appropriate to [facility] to [facility] a prison facility as acute rehab may be too much for her Documented By: Elmer Baker Continued [facility] stay due to: abnormal vital signs, multiple IV medications needed Discharge planning: uncertain
[2017-07-20] MEDS: ATORVASTATIN 20 MG TAB PO SCH (20:53)
[2017-07-20] MEDS: MIRTAZAPINE TAB 15 MG TAB PO SCH (20:53)
[2017-07-21] MEDS: METRONIDAZOLE / NSS 500 MG in PREMIXED NSS 100 ML IV SCH ×3 (05:47→21:28)
[2017-07-21] MEDS: HEPARIN SOD 5000 UNIT/0.5 ML CARP SQ SCH ×2 (05:54→18:54)
[2017-07-21] MEDS: ALBUT/IPRATROP 3MG/0.5MG NEB 3 ML VIAL INH SCH ×5 (07:19→19:14)
[2017-07-21 07:23] VITALS: PULSE 92; O2SAT 94
[2017-07-21 07:45] VITALS: BP 131/59; PULSE 92; TEMP 36.7; O2SAT 96
[2017-07-21] MEDS: BOOST PLUS VANILLA PO SCH ×2 (07:48→17:00)
[2017-07-21] MEDS: CEFEPIME IV 2,000 MG in SYRINGE 7.5 ML IV SCH ×2 (07:49→19:37)
[2017-07-21] MEDS: ASPIRIN 81 MG ECTAB PO SCH (07:49)
[2017-07-21] MEDS: METOPROLOL SUCC 25MG EXT REL TAB PO SCH (07:49)
--- NOTE | 2017-07-21 08:16 | Family Medicine Progress Note ---
Progress Note Date of Service Jul 21, 2017. Subjective Pt evaluation today including: conversation w/ patient, conversation w/ family , physical exam, chart review, lab review, review of studies, conversation w/ [employer] consultant, review of inpatient medication list Patient states she is well, she denies acute overnight events. However, she did require increased oxygen supplementation of 6L over night. She is currently using 4L. She otherwise denies fevers/chills, headaches, CP, palpitations, dyspnea, abdominal pain, lower extremity swelling or rashes. She admits that her appetite is diminished, but she is able to drink the thickened foods provided, although she is not a fan of it. She is not having nausea or vomiting. She has not been out of bed much since admission. She denies issues with voiding or stooling. ROS is unremarkable except as noted above. Objective Vital Signs Date Time Temp Pulse Resp B/P (MAP) Pulse Ox O2 Delivery O2 Flow Rate FiO2 07/21/17 07:45 36.7 92 18 131/59 (83) 96 Nasal Cannula 4.0 07/21/17 07:23 92 16 94 Nasal Cannula 4.0 07/21/17 00:00 Nasal Cannula 4.0 07/20/17 21:59 36.7 110 16 154/61 (92) 93 Nasal Cannula 4.0 07/20/17 20:06 100 16 93 Nasal Cannula 4.0 07/20/17 16:17 36.6 93 16 145/79 (101) 94 Nasal Cannula 4.0 07/20/17 16:00 94 Nasal Cannula 4.0 07/20/17 11:28 63 16 98 Nasal Cannula 6.0 07/20/17 08:22 37.1 106 16 133/74 (93) 95 6.0 Physical Exam General Appearance: no apparent distress, + cachetic, + pertinent finding ( nasal cannula in situ) Eyes: normal inspection ENT: hearing grossly normal, pharynx normal Neck: supple Respiratory/Chest: no respiratory distress, no accessory muscle use, + decreased breath sounds, + crackles Cardiovascular: regular rate, rhythm, no edema Abdomen: normal bowel sounds, non tender, soft Extremities: no calf tenderness Neurologic/Psychiatric: alert, normal mood/affect, oriented x 3 Skin: normal color, warm/dry, no rash Laboratory Results Results Past 24 Hours Test 07/21/17 08:19 07/21/17 09:04 Range/Units Sodium Level 139 136-145 mmol/L Potassium Level 4.1 3.5-5.1 mmol/L Chloride Level 102 98-107 mmol/L Carbon Dioxide Level 29 21-32 mmol/L Anion Gap 7.0 3-11 mmol/L Blood Urea Nitrogen 21 7-18 mg/dl Creatinine 0.41 0.60-1.20 mg/dl Est Creatinine Clear Calc Drug Dose 70.6 ml/min Estimated GFR () 115.5 Estimated GFR (Non- 99.7 BUN/Creatinine Ratio 50.9 10-20 Random Glucose 112 70-99 mg/dl Calcium Level 9.2 8.5-10.1 mg/dl White Blood Count 14.36 4.8-10.8 K/uL Red Blood Count 4.10 4.2-5.4 M/uL Hemoglobin 10.8 12.0-16.0 g/dL Hematocrit 34.3 37-47 % Mean Corpuscular Volume 83.7 80-100 fL Mean Corpuscular Hemoglobin 26.3 25-34 pg Mean Corpuscular Hemoglobin Concent 31.5 32-36 g/dl Platelet Count 267 130-400 K/uL Mean Platelet Volume 9.7 7.4-10.4 fL Neutrophils (%) (Auto) 83.7 % Lymphocytes (%) (Auto) 4.9 % Monocytes (%) (Auto) 10.4 % Eosinophils (%) (Auto) 0.3 % Basophils (%) (Auto) 0.2 % Neutrophils # (Auto) 12.02 1.4-6.5 K/uL Lymphocytes # (Auto) 0.71 1.2-3.4 K/uL Monocytes # (Auto) 1.49 0.11-0.59 K/uL Eosinophils # (Auto) 0.04 0-0.5 K/uL Basophils # (Auto) 0.03 0-0.2 K/uL RDW Standard Deviation 46.8 36.4-46.3 fL RDW Coefficient of Variation 15.3 11.5-14.5 % Immature Granulocyte % (Auto) 0.5 % Immature Granulocyte # (Auto) 0.07 0.00-0.02 K/uL Assessment and Plan 77 yo F w/chronic aspiration since CVA who was admitted for aspiration pneumonia and was pending placement until patient had increased O2 requirements prior to her discharge. Changes on repeat imaging reflected worsening PNA/ progression fluid accumulation. Acute hypoxic respiratory failure secondary recurrent aspiration PNA CXR showed no significant pleural effusion noted for thoracentesis, consolidation noted - O2 per nursing protocol, currently on 4L - Continue Cefepime and Flagyl ( day 3); leukocytosis from recurrent PNA improving. Clinically improving so will defer addition of vanco - Continue dietary recommendation of thickened foods - Discussion had with patient and granddaughter: with recurrent aspiration patient is at very high risk for recurrent infections and potential rapid deterioration. Family to discuss options of home with hospice care versus long terms care options in greater detail. Severe protein-calorie malnutrition, FTT - Appreciate nutrition recommendations - Continue Boost and thickened liquids Hyperglobulinemia,anemia- stable - SPEP reflective of chronic inflammation Depression - Mirtazapine 15 mg initiated during admission and continued Hypokalemia - resolved - PO supplement if needed (did not tolerate IV replacement) - Trend BMP Asthma?, unable to find diagnostic PFT - Continue home Xopenex CVA/ HLD/ HTN/ CAD - Continue aspirin, atorvastatin, metoprolol - Midodrine discontinued DVT prophylaxis - Heparin SC BID Code status: DNR Continued [facility] stay due to: home environment unsafe for pt Discharge planning: uncertain Resident Tracking Resident Involvement: Resident Care Provided Care Provided: Adult Hospital Medicine Reviewed: Pt Seen/Exam by Me History breathing better today. Constitutional: denies: fever Cardiovascular: denies chest pain General Appearance: mild distress Respiratory: respiratory distress (mild), rhonchi (occasional) Gastrointestinal: soft Neurologic/Psychiatric: alert, oriented x 3 Skin Characteristics: warm/dry Assessment/Plan Resident Physician Supervision Note: I independently interviewed and examined the patient and verified the mendes history and physical, reviewed labs and image studies, discussed the case with the resident Dr. Verde and agree with the findings and care plan.
[2017-07-21 09:06] LABS: CALCIUM 9.2 mg/dl (8.5-10.1); CREATININE 0.41 mg/dl (0.60-1.20); POTASSIUM 4.1 mmol/L (3.5-5.1)
[2017-07-21 09:17] LABS: BASO % 0.2 %; BASO ABS # 0.03 K/uL (0-0.2); EOS % 0.3 %; EOS ABS # 0.04 K/uL (0-0.5); HEMATOCRIT 34.3 % (37-47); HEMOGLOBIN 10.8 g/dL (12.0-16.0); IG# 0.07 K/uL (0.00-0.02); LYMPH % 4.9 %; LYMPH ABS # 0.71 K/uL (1.2-3.4); MEAN CELL VOLUME 83.7 fL (80-100); MEAN CORPUSCULAR HEMOGLOBIN 26.3 pg (25-34); MEAN PLATELET VOLUME 9.7 fL (7.4-10.4); MONO % 10.4 %; MONO ABS # 1.49 K/uL (0.11-0.59); NEUT % 83.7 %; NEUT ABS # 12.02 K/uL (1.4-6.5); PLATELET COUNT 267 K/uL (130-400); RED CELL DISTRIBUTION WIDTH CV 15.3 % (11.5-14.5); RED CELL DISTRIBUTION WIDTH SD 46.8 fL (36.4-46.3); WHITE BLOOD COUNT 14.36 K/uL (4.8-10.8)
[2017-07-21 09:21] LABS: MEAN CORPUSCULAR HGB CONC 31.5 g/dl (32-36)
[2017-07-21 16:53] VITALS: BP 148/75; PULSE 98; TEMP 36.4; O2SAT 90
[2017-07-21 19:15] VITALS: PULSE 102; O2SAT 92
[2017-07-21] MEDS: MIRTAZAPINE TAB 15 MG TAB PO SCH (21:28)
[2017-07-21] MEDS: ATORVASTATIN 20 MG TAB PO SCH (21:28)
[2017-07-21 22:52] VITALS: BP 146/77; PULSE 105; TEMP 36.7; O2SAT 94
[2017-07-22] VITALS (7 sets, daily range): BP systolic 125–154; BP diastolic 69–97; PULSE 94–110; TEMP 36.4–36.9; O2SAT 86–98
[2017-07-22] MEDS: METRONIDAZOLE / NSS 500 MG in PREMIXED NSS 100 ML IV SCH ×2 (06:06→13:50)
[2017-07-22] MEDS: HEPARIN SOD 5000 UNIT/0.5 ML CARP SQ SCH ×2 (06:14→19:00)
[2017-07-22 06:15] LABS: HEMATOCRIT 33.1 % (37-47); HEMOGLOBIN 10.3 g/dL (12.0-16.0); MEAN CELL VOLUME 83.8 fL (80-100); MEAN CORPUSCULAR HEMOGLOBIN 26.1 pg (25-34); MEAN CORPUSCULAR HGB CONC 31.1 g/dl (32-36); PLATELET COUNT 298 K/uL (130-400); RED CELL DISTRIBUTION WIDTH CV 15.2 % (11.5-14.5); RED CELL DISTRIBUTION WIDTH SD 47.1 fL (36.4-46.3); WHITE BLOOD COUNT 11.83 K/uL (4.8-10.8)
[2017-07-22 07:03] LABS: CREATININE 0.32 mg/dl (0.60-1.20)
[2017-07-22 07:04] LABS: POTASSIUM 3.4 mmol/L (3.5-5.1)
[2017-07-22 07:05] LABS: CALCIUM 8.8 mg/dl (8.5-10.1)
[2017-07-22] MEDS: ALBUT/IPRATROP 3MG/0.5MG NEB 3 ML VIAL INH SCH ×4 (07:31→20:19)
--- NOTE | 2017-07-22 07:37 | Family Medicine Progress Note ---
Progress Note Date of Service Jul 22, 2017. Subjective Pt evaluation today including: conversation w/ patient, physical exam, chart review, lab review, review of studies, conversation w/ managing consultant, review of inpatient medication list Patient states she is well, she denies acute overnight events. She remains on oxygen supplementation of 4L over night and denies acute exacerbation. She otherwise denies fevers/chills, headaches, CP, palpitations, dyspnea, abdominal pain, lower extremity swelling or rashes. She is refusing to drink the thickened foods provided, and is requesting water. It was explained why this would be a bad idea. She is not having nausea or vomiting. She is not interested in sitting out of bed. She denies issues with voiding or stooling. ROS is unremarkable except as noted above. Objective Vital Signs Date Time Temp Pulse Resp B/P (MAP) Pulse Ox O2 Delivery O2 Flow Rate FiO2 07/22/17 00:00 Nasal Cannula 4.0 07/21/17 22:52 36.7 105 18 146/77 (100) 94 Nasal Cannula 4.0 07/21/17 20:53 Nasal Cannula 4.0 07/21/17 20:00 Nasal Cannula 4.0 07/21/17 19:15 102 16 92 Nasal Cannula 4.0 07/21/17 16:53 36.4 98 18 148/75 (99) 90 Nasal Cannula 4.0 07/21/17 08:00 Nasal Cannula 4.0 07/21/17 07:45 36.7 92 18 131/59 (83) 96 Nasal Cannula 4.0 Physical Exam Notes: General Appearance: no apparent distress, + cachetic, + pertinent finding ( nasal cannula in situ) Eyes: normal inspection ENT: hearing grossly normal, pharynx normal Neck: supple Respiratory/Chest: no respiratory distress, no accessory muscle use, + decreased breath sounds (bibasilar), + crackles Cardiovascular: regular rate, rhythm, no edema Abdomen: normal bowel sounds, non tender, soft Extremities: no calf tenderness Neurologic/Psychiatric: alert, normal mood/affect, oriented x 3 Skin: normal color, warm/dry, no rash Laboratory Results Results Past 24 Hours Test 07/22/17 05:42 Range/Units White Blood Count 11.83 4.8-10.8 K/uL Red Blood Count 3.95 4.2-5.4 M/uL Hemoglobin 10.3 12.0-16.0 g/dL Hematocrit 33.1 37-47 % Mean Corpuscular Volume 83.8 80-100 fL Mean Corpuscular Hemoglobin 26.1 25-34 pg Mean Corpuscular Hemoglobin Concent 31.1 32-36 g/dl RDW Standard Deviation 47.1 36.4-46.3 fL RDW Coefficient of Variation 15.2 11.5-14.5 % Platelet Count 298 130-400 K/uL Mean Platelet Volume 10.0 7.4-10.4 fL Sodium Level 140 136-145 mmol/L Potassium Level 3.4 3.5-5.1 mmol/L Chloride Level 103 98-107 mmol/L Carbon Dioxide Level 31 21-32 mmol/L Anion Gap 6.0 3-11 mmol/L Blood Urea Nitrogen 25 7-18 mg/dl Creatinine 0.32 0.60-1.20 mg/dl Est Creatinine Clear Calc Drug Dose 90.4 ml/min Estimated GFR () 125.3 Estimated GFR (Non- 108.1 BUN/Creatinine Ratio 78.1 10-20 Random Glucose 122 70-99 mg/dl Calcium Level 8.8 8.5-10.1 mg/dl Assessment and Plan 77 yo F w/chronic aspiration since CVA who was admitted for aspiration pneumonia and was pending placement until patient had increased O2 requirements prior to her discharge. Changes on repeat imaging reflected worsening PNA/ progression fluid accumulation. Acute hypoxic respiratory failure secondary recurrent aspiration PNA CXR showed no significant pleural effusion noted for thoracentesis, consolidation noted - O2 per nursing protocol, currently on 4L - Continue Cefepime and Flagyl (day 4); leukocytosis from recurrent PNA improving. Clinically improving so will defer addition of vanco - Continue dietary recommendation of thickened foods - Discussion to be had with patient, daughter and/or granddaughter this afternoon re: disposition. With recurrent aspiration patient is at very high risk for recurrent infections and potential rapid deterioration. Family to discuss options of home with hospice care versus long terms care options in greater detail. Severe protein-calorie malnutrition, FTT - Appreciate nutrition recommendations - Continue Boost and thickened liquids Hyperglobulinemia,anemia- stable - SPEP reflective of chronic inflammation Depression - Mirtazapine 15 mg initiated during admission and continued Hypokalemia - resolved - PO supplement if needed (did not tolerate IV replacement) - Trend BMP Asthma?, unable to find diagnostic PFT - Continue home Xopenex CVA/ HLD/ HTN/ CAD - Continue aspirin, atorvastatin, metoprolol - Midodrine discontinued DVT prophylaxis - Heparin SC BID Code status: DNR Anticipate d/c home with hospice in am Continued [facility] stay due to: home environment unsafe for pt Discharge planning: home with Hospice, [facility] facility Resident Tracking Resident Involvement: Resident Care Provided Care Provided: Adult Hospital Medicine Reviewed: Pt Seen/Exam by Me History breathing well this am. revisited later in the day - difficulty with coughing. unable to bring up cough Constitutional: denies: fever General Appearance: moderate distress Respiratory: rhonchi Cardiovascular: regular rate, rhythm Neurologic/Psychiatric: alert, oriented x 3 Skin Characteristics: warm/dry Assessment/Plan Resident Physician Supervision Note: I independently interviewed and examined the patient and verified the mendes history and physical, reviewed labs and image studies, discussed the case with the resident Dr. Verde and agree with the findings and care plan.
[2017-07-22] MEDS: BOOST PLUS VANILLA PO SCH ×2 (08:39→19:02)
[2017-07-22] MEDS: ASPIRIN 81 MG ECTAB PO SCH (08:39)
[2017-07-22] MEDS: METOPROLOL SUCC 25MG EXT REL TAB PO SCH (08:39)
[2017-07-22] MEDS: CEFEPIME IV 2,000 MG in SYRINGE 7.5 ML IV SCH ×2 (08:46→21:07)
[2017-07-22] MEDS ORDERED: POTASSIUM CHLORIDE 20 MEQ TABCR PO ONE (10:30)
[2017-07-22] MEDS: ATORVASTATIN 20 MG TAB PO SCH (21:07)
[2017-07-22] MEDS: METRONIDAZOLE 500 MG TAB PO SCH (21:07)
[2017-07-22] MEDS: MIRTAZAPINE TAB 15 MG TAB PO SCH (21:08)
[2017-07-23] VITALS (7 sets, daily range): BP systolic 129–134; BP diastolic 71–80; PULSE 60–100; TEMP 36.3; O2SAT 92–99
[2017-07-23] MEDS: HEPARIN SOD 5000 UNIT/0.5 ML CARP SQ SCH ×2 (05:54→18:00)
[2017-07-23 07:18] LABS: HEMOGLOBIN 11.5 g/dL (12.0-16.0); MEAN CELL VOLUME 84.7 fL (80-100); MEAN CORPUSCULAR HEMOGLOBIN 26.3 pg (25-34); MEAN CORPUSCULAR HGB CONC 31.1 g/dl (32-36); MEAN PLATELET VOLUME 9.9 fL (7.4-10.4); PLATELET COUNT 335 K/uL (130-400); RED CELL DISTRIBUTION WIDTH CV 15.4 % (11.5-14.5); RED CELL DISTRIBUTION WIDTH SD 47.7 fL (36.4-46.3); WHITE BLOOD COUNT 18.23 K/uL (4.8-10.8)
[2017-07-23] MEDS: ALBUT/IPRATROP 3MG/0.5MG NEB 3 ML VIAL INH SCH ×4 (07:31→19:30)
[2017-07-23 07:52] LABS: CREATININE 0.44 mg/dl (0.60-1.20)
[2017-07-23 07:53] LABS: POTASSIUM 3.8 mmol/L (3.5-5.1)
[2017-07-23] MEDS: BOOST PLUS VANILLA PO SCH ×2 (08:00→17:00)
[2017-07-23] MEDS: ASPIRIN 81 MG ECTAB PO SCH (09:30)
[2017-07-23] MEDS: METRONIDAZOLE 500 MG TAB PO SCH ×3 (09:30→20:49)
[2017-07-23] MEDS: METOPROLOL SUCC 25MG EXT REL TAB PO SCH (09:30)
[2017-07-23] MEDS: CEFEPIME IV 2,000 MG in SYRINGE 7.5 ML IV SCH ×2 (09:41→20:50)
--- NOTE | 2017-07-23 14:49 | Family Medicine Progress Note ---
Progress Note Date of Service Jul 23, 2017. Subjective Pt evaluation today including: conversation w/ patient, physical exam, chart review, lab review, review of studies, conversation w/ hadoop consultant, review of inpatient medication list Patient states she is well, she denies acute overnight events. She remains on oxygen supplementation of 6L. She otherwise denies fevers/chills, CP, palpitations, dyspnea, abdominal pain, or rashes. She is complaining of thirst, but agreeable for Boost drinks. She is not having nausea or vomiting with the small amount of food she is eating. She denies issues with voiding or stooling. ROS is unremarkable except as noted above Objective Vital Signs Date Time Temp Pulse Resp B/P (MAP) Pulse Ox O2 Delivery O2 Flow Rate FiO2 07/23/17 11:05 Nasal Cannula 4.0 07/23/17 11:01 93 18 94 Nasal Cannula 4.0 07/23/17 08:11 36.3 100 16 132/71 (91) 95 Nasal Cannula 6.0 07/23/17 07:40 96 16 99 Nasal Cannula 6.0 07/22/17 23:45 Nasal Cannula 4.0 07/22/17 23:10 36.9 109 20 146/97 (113) 97 Nasal Cannula 6.0 07/22/17 20:19 99 18 92 Nasal Cannula 6.0 07/22/17 16:19 36.4 107 20 154/76 (102) 94 Nasal Cannula 6.0 07/22/17 16:00 Nasal Cannula 4.0 07/22/17 14:55 108 18 92 Nasal Cannula 6.0 Physical Exam General Appearance: + cachetic, + pertinent finding (NC in situ) Eyes: normal inspection ENT: hearing grossly normal Neck: no adenopathy Respiratory/Chest: chest non-tender, + decreased breath sounds (diffusely), + crackles (bibasilar, seems to be worsening) Cardiovascular: regular rate, rhythm, no edema Abdomen: normal bowel sounds, non tender, soft Extremities: no pedal edema, no calf tenderness Neurologic/Psychiatric: alert, normal mood/affect, oriented x 3 Skin: normal color, warm/dry, no rash Laboratory Results Results Past 24 Hours Test 07/23/17 06:54 Range/Units White Blood Count 18.23 4.8-10.8 K/uL Red Blood Count 4.37 4.2-5.4 M/uL Hemoglobin 11.5 12.0-16.0 g/dL Hematocrit 37.0 37-47 % Mean Corpuscular Volume 84.7 80-100 fL Mean Corpuscular Hemoglobin 26.3 25-34 pg Mean Corpuscular Hemoglobin Concent 31.1 32-36 g/dl RDW Standard Deviation 47.7 36.4-46.3 fL RDW Coefficient of Variation 15.4 11.5-14.5 % Platelet Count 335 130-400 K/uL Mean Platelet Volume 9.9 7.4-10.4 fL Sodium Level 143 136-145 mmol/L Potassium Level 3.8 3.5-5.1 mmol/L Chloride Level 106 98-107 mmol/L Carbon Dioxide Level 34 21-32 mmol/L Anion Gap 3.0 3-11 mmol/L Blood Urea Nitrogen 28 7-18 mg/dl Creatinine 0.44 0.60-1.20 mg/dl Est Creatinine Clear Calc Drug Dose 65.8 ml/min Estimated GFR () 112.8 Estimated GFR (Non- 97.4 BUN/Creatinine Ratio 63.0 10-20 Random Glucose 146 70-99 mg/dl Calcium Level 9.0 8.5-10.1 mg/dl Assessment and Plan 77 yo F w/chronic aspiration since CVA who was admitted for aspiration pneumonia and was pending placement until patient had increased O2 requirements prior to her discharge. Changes on repeat imaging reflected worsening PNA/ progression fluid accumulation. Acute hypoxic respiratory failure secondary recurrent aspiration PNA CXR showed no significant pleural effusion noted for thoracentesis, consolidation noted - O2 per nursing protocol, currently on 6L - Continue Cefepime and Flagyl (day 5); leukocytosis from recurrent PNA improving. Clinically improving so will defer addition of vanco - Dietary recommendation of thickened foods, however, patient is declining thickened drinks, may be contributing to ongoing aspiration/worsening pneumonia Severe protein-calorie malnutrition, FTT - Appreciate nutrition recommendations - Continue Boost and thickened liquids Hyperglobulinemia,anemia- stable - SPEP reflective of chronic inflammation Depression - Mirtazapine 15 mg initiated during admission and continued Hypokalemia - resolved - PO supplement if needed (did not tolerate IV replacement) - Trend BMP Asthma?, unable to find diagnostic PFT - Continue home Xopenex CVA/ HLD/ HTN/ CAD - Continue aspirin, atorvastatin, metoprolol - Midodrine discontinued DVT prophylaxis - Heparin SC BID Dispo - With recurrent aspiration patient is at very high risk for recurrent infections and potential rapid deterioration, patient and family agreeable to return to her own home with hospice services - Referral placed, awaiting approval. Code status: DNR Continued [facility] stay due to: home environment unsafe for pt Discharge planning: home with Hospice Resident Tracking Resident Involvement: Resident Care Provided Care Provided: Adult Hospital Medicine Reviewed: Pt Seen/Exam by Me History felt better again this am. was able to cough up phlegm better last night after she walked around in the room Constitutional: denies: fever Cardiovascular: denies chest pain General Appearance: no apparent distress, cachetic Respiratory: no respiratory distress, decreased breath sounds Cardiovascular: regular rate, rhythm Neurologic/Psychiatric: alert, oriented x 3 Skin Characteristics: warm/dry Assessment/Plan Resident Physician Supervision Note: I independently interviewed and examined the patient and verified the mendes history and physical, reviewed labs and image studies, discussed the case with the resident Dr. Verde and agree with the findings and care plan.
[2017-07-23] MEDS: ATORVASTATIN 20 MG TAB PO SCH (20:49)
[2017-07-23] MEDS: MIRTAZAPINE TAB 15 MG TAB PO SCH (20:49)
[2017-07-24] MEDS: HEPARIN SOD 5000 UNIT/0.5 ML CARP SQ SCH (05:59)
[2017-07-24] MEDS: ALBUT/IPRATROP 3MG/0.5MG NEB 3 ML VIAL INH SCH ×2 (07:17→11:37)
[2017-07-24 07:21] VITALS: PULSE 90; O2SAT 94
[2017-07-24 07:33] LABS: HEMATOCRIT 38.3 % (37-47); HEMOGLOBIN 11.7 g/dL (12.0-16.0); MEAN CELL VOLUME 86.1 fL (80-100); MEAN CORPUSCULAR HEMOGLOBIN 26.3 pg (25-34); MEAN CORPUSCULAR HGB CONC 30.5 g/dl (32-36); MEAN PLATELET VOLUME 10.3 fL (7.4-10.4); PLATELET COUNT 338 K/uL (130-400); RED CELL DISTRIBUTION WIDTH CV 15.7 % (11.5-14.5); RED CELL DISTRIBUTION WIDTH SD 49.5 fL (36.4-46.3); WHITE BLOOD COUNT 18.08 K/uL (4.8-10.8)
[2017-07-24 07:46] VITALS: BP 138/71; PULSE 101; TEMP 36.4; O2SAT 96
[2017-07-24] MEDS: BOOST PLUS VANILLA PO SCH (08:00)
[2017-07-24 08:10] LABS: CALCIUM 9.3 mg/dl (8.5-10.1); CREATININE 0.43 mg/dl (0.60-1.20); POTASSIUM 3.7 mmol/L (3.5-5.1)
[2017-07-24] MEDS: CEFEPIME IV 2,000 MG in SYRINGE 7.5 ML IV SCH (08:32)
[2017-07-24] MEDS: METRONIDAZOLE 500 MG TAB PO SCH ×2 (08:33→14:25)
[2017-07-24] MEDS: METOPROLOL SUCC 25MG EXT REL TAB PO SCH (08:34)
[2017-07-24] MEDS: ASPIRIN 81 MG ECTAB PO SCH (08:34)
[2017-07-24 11:37] VITALS: PULSE 100; O2SAT 96
[2017-07-24] MEDS ORDERED: [UNRECOGNIZED DRUG - OTHER] PO (12:10)
[2017-07-24] MEDS ORDERED: OXYC10SO PO (12:10)
[2017-07-24] MEDS ORDERED: SODIUM CHLORIDE 0.45% 1000ML 500 ML IV SCH (12:41)
[2017-07-24] MEDS ORDERED: IPRASOL4 INH (13:48)
--- NOTE | 2017-07-24 13:58 | Discharge Instructions ---
Discharge Instructions Date of Service Jul 24, 2017. Admission Reason for Admission: Acute Respiratory Failure With Hypoxia, Aspiration Discharge Discharge Diagnosis / Problem: Aspiration pneumonia Discharge Goals Goal(s): Decrease discomfort, Diagnostic testing, Therapeutic intervention Activity Recommendations Activity Limitations: resume your previous activity . Instructions / Follow-Up Instructions / Follow-Up Alla was admitted for aspiration pneumonia. She was placed on aspiration precautions and managed with antibiotics. Despite this, there has been evidence of ongoing aspiration and worsening pneumonia. This has hindered patient's ability to get sufficient oxygen, and as such, Alla is being supported with supplemental oxygen via nasal cannula. This is an ongoing problem which will likely worsen, and the Alla's condition may deteriorate at any time. Alla is being discharged home with hospice services, as per her preference. At time of discharge, continue oxygen as per patient's needs. Please complete course of antibiotics, Augmentin. Continue aspiration precautions. Use levalbuterol nebulizers every 4 hours or as needed. Mirtazapine has been prescribed in attempts to stimulate hunger. Continue other medications as prescribed. Thank you for allowing us to participate in your care. Current Hospital Diet Patient's current hospital diet: Regular Diet Discharge Diet Recommended Diet: Regular Diet Diet Texture: Mechanical Soft (ground) Liquid Consistency: Rufus Thick Pending Studies Studies pending at discharge: no Medical Emergencies . Who to Call and When: Medical Emergencies: If at any time you feel your situation is an emergency, please call 911 immediately. . Non-Emergent Contact Non-Emergency issues call your: Primary Care Provider, Specialist (Hospice care provider) . . "Provider Documentation" section prepared by Rita Verde. . Resident Tracking Resident Involvement: Resident Care Provided Care Provided: Adult Hospital Medicine
[2017-07-24] MEDS ORDERED: AMOX1TAB43 PO (14:01)
--- NOTE | 2017-07-24 14:07 | Discharge Summary ---
Discharge Summary Date of Service Jul 24, 2017. Discharge Summary Admission Date: Jul 14, 2017 at 23:59 Discharge Date: Jul 24, 2017 Discharge Disposition: Home with services Principal Diagnosis: Aspiration pneumonia with acute hypoxic respiratory failure Immunizations: Have You Had Influenza Vaccine: No History of Tetanus Vaccine?: Yes History of Pneumococcal: Yes Pneumococcal Date: Feb 20, 2006 History of Hepatitis B Vaccine: No Medication Reconciliation New Medications: Lorazepam (Lorazepam) 2 Mg/Ml Soln 1 MG PO Q4H for agitation, #20 ML Oxycodone Hcl (Roxycodone Oral Soln) 5 Mg/5 Ml Michaela 5 MG PO Q4H PRN for Pain, #100 ML Amoxicillin & Pot Clavulanate (Amoxicillin/Clavulanate P) 1 Tab Tab 875 MG PO BIDM for 5 Days, #10 TAB Enteral Nutrition Formula (Ensure Plus Vanilla) 1 Can Liqd 1 CAN PO BIDM for 30 Days, #30 Mirtazapine (Mirtazapine) 15 Mg Tab 15 MG PO HS for 30 Days, #30 TAB Polyethylene (Miralax) 17 Gm Pow 17 GM PO DAILY PRN for Constipation for 30 Days, #30 Continued Medications: Aspirin (Aspirin Ec) 81 Mg Tab 81 MG PO QAM Atorvastatin (Lipitor) 20 Mg Tab 20 MG PO HS, TAB Levalbuterol Hcl (Levalbuterol Hcl) 1.25 Mg/3 Ml Neb 1.25 MG NEB Q6H PRN for SOB/Wheezing Metoprolol Succ (Toprol Xl) (Toprol-Xl) 25 Mg Tabcr 25 MG PO QAM, TAB Discontinued Medications: Ciprofloxacin Tab (Cipro) Unknown Strength Tab 1 TAB PO Q12, TAB PRESCRIBED 07/10/2017, TAKE DIRECTED UNTIL GONE Midodrine (Midodrine HCl) 2.5 Mg Tab 2.5 MG PO TID TAKE THIS MEDICATION AT 0800,1200 AND 1700 HOURS Discharge Exam Patient states she is well, she denies acute overnight events. She remains on oxygen supplementation of 6L. She otherwise denies fevers/chills, CP, palpitations, dyspnea, abdominal pain, or rashes. She is complaining of thirst, but agreeable for Boost drinks. She is not having nausea or vomiting with the small amount of food she is eating. She denies issues with voiding or stooling. Not interested in being out of bed. She is keen for home. ROS is unremarkable except as noted above Physical Exam General Appearance: + cachetic, + pertinent finding (NC in situ) Eyes: normal inspection ENT: hearing grossly normal Neck: no adenopathy Respiratory/Chest: chest non-tender, + decreased breath sounds (diffusely), + crackles (bibasilar, seems to be worsening) Cardiovascular: regular rate, rhythm, no edema Abdomen: normal bowel sounds, non tender, soft Extremities: no pedal edema, no calf tenderness Neurologic/Psychiatric: alert, normal mood/affect, oriented x 3 Skin: normal color, warm/dry, no rash Hospital Course 77 yo F w/chronic aspiration since CVA who was admitted for aspiration pneumonia and was pending placement until patient had increased O2 requirements prior to her discharge. Changes on repeat imaging reflected worsening PNA/ progression fluid accumulation. Acute hypoxic respiratory failure secondary recurrent aspiration PNA CXR showed no significant pleural effusion noted for thoracentesis, consolidation noted - Supplemental O2 provided, usually requiring 4-6L - Dietary recommendation of thickened foods, however, patient was declining thickened drinks, which likely contributed to ongoing aspiration/worsening pneumonia - Was on Cefepime and Flagyl in hospital, discharge on Augmentin x 3 more days - With recurrent aspiration patient is at very high risk for recurrent infections and potential rapid deterioration, patient and family agreeable to return to her own home with hospice services Severe protein-calorie malnutrition, FTT - Mirtazapine hopefully stimulating appetite - Continue Boost and thickened liquids on discharge Hyperglobulinemia,anemia- stable - SPEP reflective of chronic inflammation Depression - Continue mirtazapine 15mg daily Hypokalemia - Resolved at time of discharge after supplementation Asthma?, unable to find diagnostic PFT - Continue home Xopenex q4h or as needed PRN SOB CVA/ HLD/ HTN/ CAD - Continue aspirin, atorvastatin, metoprolol - Midodrine discontinued DVT prophylaxis - Heparin SC BID Dispo - With recurrent aspiration patient is at very high risk for recurrent infections and potential rapid deterioration, patient and family agreeable to return to her own home with hospice services - Scripts provided for lorazepam PRN agitation and Roxanol PRN discomfort Code status: DNR Total Time Spent: Greater than 30 minutes This includes examination of the patient, discharge planning, medication reconciliation, and communication with other providers. Discharge Instructions Please refer to the electronic Patient Visit Report (Discharge Instructions) for additional information. Resident Tracking Resident Involvement: Resident Care Provided Care Provided: Adult Hospital Medicine Reviewed: Pt Seen/Exam by Me History breathing now worse than yesterday. still coughing. able to move phlegm when more upright. Constitutional: denies: fever Cardiovascular: denies chest pain General Appearance: no apparent distress, cachetic Respiratory: decreased breath sounds, rhonchi Cardiovascular: regular rate, rhythm Neurologic/Psychiatric: alert, oriented x 3 Assessment/Plan Resident Physician Supervision Note: I independently interviewed and examined the patient and verified the mendes history and physical, reviewed labs and image studies, discussed the case with the resident Dr. Verde and agree with the findings and care plan. Time spent in discharge 35 min
[2017-07-24 14:45] VITALS: BP 138/71; PULSE 100; TEMP 36.4; O2SAT 96
== END 2017-07-24 16:55 | disposition hospice, home (50) | DRG 177 ==
LOC: C.EDB 20:06 → C.2T 23:59 → ENRESERV 07-15 00:10 → C.MS2W 07-15 11:04 → UNDODISIN 07-18 16:26 → C.MS4W 07-18 19:06
PROVIDERS: ADMIT Student in an Organized Health Care Education/Training Program; ATTEND Family Medicine
DX: J69.0 Pneumonitis due to inhalation of food and vomit (principal); A41.9 Sepsis, unspecified organism; J96.01 Acute respiratory failure with hypoxia; E43 Unspecified severe protein-calorie malnutrition; R64 Cachexia; E87.1 Hypo-osmolality and hyponatremia; Z66 Do not resuscitate; J45.909 Unspecified asthma, uncomplicated; E78.5 Hyperlipidemia, unspecified; I25.10 Atherosclerotic heart disease of native coronary artery without angina pectoris; R77.1 Abnormality of globulin; I10 Essential (primary) hypertension; E87.6 Hypokalemia; F32.9 Major depressive disorder, single episode, unspecified; Z86.73 Personal history of transient ischemic attack (TIA), and cerebral infarction without residual deficits; I25.2 Old myocardial infarction; Z86.19 Personal history of other infectious and parasitic diseases; Z87.891 Personal history of nicotine dependence; Z79.82 Long term (current) use of aspirin; Z88.0 Allergy status to penicillin; Z88.2 Allergy status to sulfonamides